=== PATIENT | male | born 1940 | race American Indian/Alaskan Native ===

== ENCOUNTER 2017-09-03 10:49 | Emergency (ER) | payer MEDICARE ==
[2017-09-03] MEDS ORDERED: ASPIRIN PO ONE (11:45)
[2017-09-03 11:46] VITALS: BP 153/71
[2017-09-03 12:18] LABS: Basophils % (Auto) 0.8 % (0.0-1.8); Eosinophils # (Auto) 0.4 K/mm3 (0.0-0.4); Eosinophils % (Auto) 9.4 % (0.0-4.3); Hematocrit 36.1 % (35.5-45.6); Hemoglobin 11.3 gm/dl (11.8-15.2); Lymphocytes # (Auto) 1.4 K/mm3 (1.2-5.4); Lymphocytes % (Auto) 32.6 % (13.4-35.0); Mean Corpuscular HGB Conc 31 % (32-34); Mean Corpuscular Volume 80 fl (84-94); Monocytes # (Auto) 0.6 K/mm3 (0.0-0.8); Monocytes % (Auto) 13.3 % (0.0-7.3); Platelet Count 225 K/mm3 (140-440); Red Blood Count 4.54 M/mm3 (3.65-5.03); Red Cell Distribution Width 17.7 % (13.2-15.2)
[2017-09-03 12:19] LABS: Mean Corpuscular Hemoglobin 25 pg (28-32)
[2017-09-03 12:29] LABS: BUN/Creatinine Ratio 14; Blood Urea Nitrogen 14 mg/dL (9-20); Calcium 8.9 mg/dL (8.4-10.2); Hemolysis Index 21
--- NOTE | 2017-09-03 13:16 | XRay Report ---
CHEST XRAY, 2 VIEWS: History: Shortness of breath. Findings: There is mild diffuse interstitial coarsening. The lungs are hyperexpanded but clear. No infiltrate, pleural fluid or pneumothorax is detected. The cardiac silhouette and pulmonary vasculature are within normal limits for technique. The bony thorax is unremarkable. IMPRESSION: Changes consistent with COPD. No acute cardiopulmonary process.
[2017-09-03] MEDS ORDERED: ASPIRIN ONE (22:10)
--- NOTE | 2017-09-03 23:03 | Emergency Department Report ---
ED Shortness of Breath HPI - General Chief Complaint: Dyspnea/Respdistress Stated Complaint: SOB/CHEST TIGHTNESS Time Seen by Provider: 09/03/17 22:53 Source: EMS Mode of arrival: Ambulatory Limitations: No Limitations - History of Present Illness Initial Comments: Patient is 77-year-old male history of COPD, hypertension and coronary artery disease, patient presented to the ER with shortness of breath for the last 3 weeks associated with shortness of breath and cough productive with greenish sputum. Patient denied any fever, nausea vomiting or diarrhea. He stated that he ran out of his inhaler too. MD Complaint: shortness of breath, cough -: week(s) Consistency: intermittent Known History Of: COPD Associated Symptoms: cough, sputum production - Related Data Home Medications Medication Instructions Recorded Confirmed Last Taken ALBUTEROL Inhaler [ProAir HFA 2 puff IH QID PRN 02/18/16 04/04/16 1 Day Ago Inhaler] ~04/03/16 2 Aspirin [Aspirin BABY CHEW TAB] 81 mg PO QDAY 02/18/16 04/04/16 1 Day Ago ~04/03/16 81 AtorvaSTATin [Lipitor] 40 mg PO DAILY 02/18/16 04/04/16 1 Day Ago ~04/03/16 40 Clopidogrel Bisulfate [Plavix] 75 mg PO DAILY 02/18/16 04/04/16 1 Day Ago ~04/03/16 75 Dorzolamide 2% (Nf) [Trusopt (Nf)] 1 drops OU BID 02/18/16 04/04/16 1 Day Ago ~04/03/16 1 Fluticasone/Salmeterol(Nf) [Advair 12 gm IH DAILY 02/18/16 04/04/16 1 Day Ago HFA 115-21 mcg] ~04/03/16 12 Latanoprost 0.005% [Xalatan 0.005%] 1 drop OU QPM 02/18/16 04/04/16 1 Day Ago ~04/03/16 1 Lisinopril [Zestril TAB] 5 mg PO QDAY 02/18/16 04/04/16 1 Day Ago ~04/03/16 5 Meclizine [Antivert] 25 mg PO TID PRN 02/18/16 04/04/16 1 Day Ago ~04/03/16 25 Metoprolol [Lopressor TAB] 25 mg PO BID 02/18/16 04/04/16 1 Day Ago ~04/03/16 25 Nitroglycerin [Nitrostat] 0.4 mg SL Q5M PRN 02/18/16 04/04/16 1 Day Ago ~04/03/16 0.4 Previous Rx's Medication Instructions Recorded Last Taken Type Docusate Sodium [Colace] 100 mg PO BID #60 capsule 02/22/16 1 Day Ago Rx ~04/03/16 100 Ferrous Sulfate [Feosol 325 MG tab] 325 mg PO BID #60 tablet 02/22/16 1 Day Ago Rx ~04/03/16 325 Allergies Allergy/AdvReac Type Severity Reaction Status Date / Time No Known Allergies Allergy Unverified 02/18/16 09:53 ED Review of Systems ROS: Stated complaint: SOB/CHEST TIGHTNESS Other details as noted in HPI Comment: All other systems reviewed and negative Constitutional: denies: chills, fever ENT: congestion Respiratory: cough, shortness of breath, SOB with exertion, wheezing Cardiovascular: chest pain. denies: palpitations, dyspnea on exertion Gastrointestinal: denies: abdominal pain, nausea, vomiting, diarrhea, constipation, hematemesis, melena, hematochezia Genitourinary: denies: urgency, frequency Neurological: denies: headache, weakness, numbness, paresthesias, confusion, abnormal gait, vertigo ED Past Medical Hx - Past Medical History Hx Hypertension: Yes Hx Heart Attack/AMI: Yes Hx Arthritis: Yes Hx Asthma: Yes (controlled) Additional medical history: GI bleed - Social History Smoking Status: Former Smoker Substance Use Type: None - Medications Home Medications: Home Medications Medication Instructions Recorded Confirmed Last Taken Type ALBUTEROL Inhaler [ProAir HFA 2 puff IH QID PRN 02/18/16 04/04/16 1 Day Ago History Inhaler] ~04/03/16 2 Aspirin [Aspirin BABY CHEW TAB] 81 mg PO QDAY 02/18/16 04/04/16 1 Day Ago History ~04/03/16 81 AtorvaSTATin [Lipitor] 40 mg PO DAILY 02/18/16 04/04/16 1 Day Ago History ~04/03/16 40 Clopidogrel Bisulfate [Plavix] 75 mg PO DAILY 02/18/16 04/04/16 1 Day Ago History ~04/03/16 75 Dorzolamide 2% (Nf) [Trusopt (Nf)] 1 drops OU BID 02/18/16 04/04/16 1 Day Ago History ~04/03/16 1 Fluticasone/Salmeterol(Nf) [Advair 12 gm IH DAILY 02/18/16 04/04/16 1 Day Ago History HFA 115-21 mcg] ~04/03/16 12 Latanoprost 0.005% [Xalatan 0.005%] 1 drop OU QPM 02/18/16 04/04/16 1 Day Ago History ~04/03/16 1 Lisinopril [Zestril TAB] 5 mg PO QDAY 02/18/16 04/04/16 1 Day Ago History ~04/03/16 5 Meclizine [Antivert] 25 mg PO TID PRN 02/18/16 04/04/16 1 Day Ago History ~04/03/16 25 Metoprolol [Lopressor TAB] 25 mg PO BID 02/18/16 04/04/16 1 Day Ago History ~04/03/16 25 Nitroglycerin [Nitrostat] 0.4 mg SL Q5M PRN 02/18/16 04/04/16 1 Day Ago History ~04/03/16 0.4 Docusate Sodium [Colace] 100 mg PO BID #60 capsule 02/22/16 04/04/16 1 Day Ago Rx ~04/03/16 100 Ferrous Sulfate [Feosol 325 MG tab] 325 mg PO BID #60 tablet 02/22/16 04/04/16 1 Day Ago Rx ~04/03/16 325 ED Physical Exam - General Limitations: No Limitations General appearance: alert, in no apparent distress - Head Head exam: Present: atraumatic, normocephalic, normal inspection - Eye Eye exam: Present: normal appearance, PERRL - ENT ENT exam: Present: normal exam, normal orophraynx, mucous membranes moist - Neck Neck exam: Present: normal inspection, full ROM. Absent: tenderness, meningismus, lymphadenopathy, thyromegaly - Respiratory Respiratory exam: Present: normal lung sounds bilaterally, wheezes. Absent: respiratory distress, rales, rhonchi, stridor, chest wall tenderness, accessory muscle use, decreased breath sounds, prolonged expiratory - Cardiovascular Cardiovascular Exam: Present: regular rate, normal rhythm, normal heart sounds - GI/Abdominal GI/Abdominal exam: Present: soft, normal bowel sounds. Absent: distended, tenderness, guarding, rebound, rigid, organomegaly, mass, bruit, pulsatile mass , hernia - Extremities Exam Extremities exam: Present: normal inspection, full ROM, normal capillary refill - Back Exam Back exam: Present: normal inspection, full ROM. Absent: tenderness, CVA tenderness (R), CVA tenderness (L), muscle spasm, paraspinal tenderness - Neurological Exam Neurological exam: Present: alert, oriented X3, CN II-XII intact, normal gait - Skin Skin exam: Present: warm, intact, normal color. Absent: cyanosis, diaphoretic ED Course Vital Signs 09/03/17 09/03/17 09/03/17 11:43 22:10 22:15 Temperature 98.9 F 98.1 F Pulse Rate 64 66 66 Respiratory 16 15 Rate Blood Pressure 153/71 O2 Sat by Pulse 100 Oximetry ED Medical Decision Making - Lab Data Result diagrams: 09/03/17 11:55 09/03/17 11:55 - EKG Data -: EKG Interpreted by Al EKG shows normal: sinus rhythm Rate: bradycardia - EKG Data Interpretation: no acute changes - Radiology Data Radiology results: report reviewed Referring Physician: EVA SUAREZ Patient Name: JUAN F CARDENAS Date of : 1940 Sex: Male Report Date: 2017-09-03 Report Status: Finalized Findings [address] [address] XRay Report Signed Patient: JUAN F CARDENAS MR#: [id number] : 1940 Acct:[id number] Age/Sex: 77 / M ADM Date: 09/03/17 Loc: ED Attending Dr: Ordering Physician: EVA SUAREZ MD Date of Service: 09/03/17 Procedure(s): XR chest routine 2V Accession Number(s): [id number] cc: EVA SUAREZ MD Fluoro Time In Minutes: CHEST XRAY, 2 VIEWS: History: Shortness of breath. Findings: There is mild diffuse interstitial coarsening. The lungs are hyperexpanded but clear. No infiltrate, pleural fluid or pneumothorax is detected. The cardiac silhouette and pulmonary vasculature are within normal limits for technique. The bony thorax is unremarkable. IMPRESSION: Changes consistent with COPD. No acute cardiopulmonary process. Transcribed By: TTR Dictated By: ELMER LAWSON JR, MD Electronically Authenticated By: ELMER LAWSON JR, MD Signed Date/Time: 09/03/17 1259 DD/ 1258 TD/TT: 09/03/17 1259 Critical care attestation.: If time is entered above; I have spent that time in minutes in the direct care of this critically ill patient, excluding procedure time. ED Disposition Clinical Impression: COPD exacerbation, Bronchitis Disposition: - TO HOME OR SELFCARE Is pt being admited?: No Condition: Stable Instructions: Chronic Obstructive Pulmonary Disease (ED), Chronic Bronchitis ( ED) Referrals: ALBERTO SANABRIA [Other] - 3-5 Days
== END 2017-09-03 23:38 | disposition home or self-care (01) ==
LOC: ED 10:49
DX: J45.901 Unspecified asthma with (acute) exacerbation (principal); I10 Essential (primary) hypertension; I50.9 Heart failure, unspecified
CPT/HCPCS: 36415; 71046; 80048; 84484; 85025; 87400; 93005; 93010

== ENCOUNTER 2019-04-07 02:45 | Observation (INO) | payer MEDICARE ==
--- NOTE | 2019-04-07 03:28 | Emergency Department Report ---
ED General Adult HPI - General Chief complaint: Nausea/Vomiting/Diarrhea Stated complaint: GENERAL ILLNESS, CHILLS Time Seen by Provider: 04/07/19 03:28 Source: EMS Mode of arrival: Ambulatory Limitations: No Limitations - History of Present Illness Initial comments: 78-year-old male with a history of coronary disease with 4 stents placement presents with a complaint of substernal chest tightness. Persisted began at 1 AM. Patient states that he also had nausea and vomited 2 times. Patient states he have abdominal pain. Patient states this chest pain feels similar to his prior IA and this he took a nitroglycerin except alleviate some of this pain. He states he also had some diaphoresis associated with it. Patient denies any fever. - Related Data Home Medications Medication Instructions Recorded Confirmed Last Taken AtorvaSTATin [Lipitor] 40 mg PO DAILY 02/18/16 11/16/17 11/15/17 Fluticasone/Salmeterol(Nf) [Advair 12 gm IH DAILY 02/18/16 11/16/17 11/15/17 HFA 115-21 mcg] Latanoprost 0.005% 1 drop OU QPM 02/18/16 11/16/17 11/15/17 Lisinopril [Zestril TAB] 5 mg PO QDAY 02/18/16 11/16/17 11/15/17 Metoprolol [Lopressor TAB] 25 mg PO BID 02/18/16 11/16/17 11/15/17 Nitroglycerin [Nitrostat] 0.4 mg SL Q5M PRN 02/18/16 11/16/17 11/16/17 ISOSORBIDE MONOnitrate [Imdur ER] 60 mg PO DAILY 11/16/17 11/16/17 11/15/17 Prasugrel [Effient] 10 mg PO QDAY 11/16/17 11/16/17 11/15/17 Previous Rx's Medication Instructions Recorded Last Taken Type ALBUTEROL Inhaler (OR & NICU) 2 puff IH QID PRN #1 inhalation 09/03/17 11/15/17 Rx [ProAir HFA Inhaler] Albuterol Sulfate [Ventolin HFA] 2 puff IH Q4H PRN #1 pump 11/19/17 Unknown Rx Aspirin EC [Halfprin EC] 81 mg PO QDAY tablet 11/19/17 Unknown Rx Famotidine [Pepcid] 20 mg PO BID #60 tablet 11/19/17 Unknown Rx Allergies Allergy/AdvReac Type Severity Reaction Status Date / Time No Known Allergies Allergy Unverified 02/18/16 09:53 ED Review of Systems ROS: Stated complaint: GENERAL ILLNESS, CHILLS Other details as noted in HPI Constitutional: chills Eyes: denies: eye pain, eye discharge, vision change ENT: denies: ear pain, throat pain Respiratory: denies: cough, shortness of breath, wheezing Cardiovascular: chest pain. denies: palpitations Endocrine: no symptoms reported Gastrointestinal: nausea, vomiting Genitourinary: denies: urgency, dysuria Musculoskeletal: denies: back pain, joint swelling, arthralgia Skin: denies: rash, lesions Neurological: denies: headache, weakness, paresthesias Psychiatric: denies: anxiety, depression Hematological/Lymphatic: denies: easy bleeding, easy bruising ED Past Medical Hx - Past Medical History Hx Hypertension: Yes Hx Heart Attack/AMI: Yes Hx Congestive Heart Failure: Yes Hx Diabetes: Yes Hx Arthritis: Yes Hx Asthma: Yes (controlled) Additional medical history: GI bleed, 4 coronary stents - Surgical History Hx Coronary Stent: Yes - Social History Smoking Status: Unknown if ever smoked - Medications Home Medications: Home Medications Medication Instructions Recorded Confirmed Last Taken Type AtorvaSTATin [Lipitor] 40 mg PO DAILY 02/18/16 11/16/17 11/15/17 History Fluticasone/Salmeterol(Nf) [Advair 12 gm IH DAILY 02/18/16 11/16/17 11/15/17 History HFA 115-21 mcg] Latanoprost 0.005% 1 drop OU QPM 02/18/16 11/16/17 11/15/17 History Lisinopril [Zestril TAB] 5 mg PO QDAY 02/18/16 11/16/17 11/15/17 History Metoprolol [Lopressor TAB] 25 mg PO BID 02/18/16 11/16/17 11/15/17 History Nitroglycerin [Nitrostat] 0.4 mg SL Q5M PRN 02/18/16 11/16/17 11/16/17 History ALBUTEROL Inhaler (OR & NICU) 2 puff IH QID PRN #1 inhalation 09/03/17 11/16/17 11/15/17 Rx [ProAir HFA Inhaler] ISOSORBIDE MONOnitrate [Imdur ER] 60 mg PO DAILY 11/16/17 11/16/17 11/15/17 History Prasugrel [Effient] 10 mg PO QDAY 11/16/17 11/16/17 11/15/17 History Albuterol Sulfate [Ventolin HFA] 2 puff IH Q4H PRN #1 pump 11/19/17 Unknown Rx Aspirin EC [Halfprin EC] 81 mg PO QDAY tablet 11/19/17 Unknown Rx Famotidine [Pepcid] 20 mg PO BID #60 tablet 11/19/17 Unknown Rx ED Physical Exam - General Limitations: No Limitations General appearance: alert, other (mildly uncomfortable; awake) - Head Head exam: Present: atraumatic, normocephalic - Eye Eye exam: Present: normal appearance - ENT ENT exam: Present: mucous membranes dry - Neck Neck exam: Present: normal inspection - Respiratory Respiratory exam: Present: normal lung sounds bilaterally. Absent: respiratory distress - Cardiovascular Cardiovascular Exam: Present: regular rate, normal rhythm. Absent: systolic murmur, diastolic murmur, rubs, gallop - GI/Abdominal GI/Abdominal exam: Present: soft, normal bowel sounds - Rectal Rectal exam: Present: deferred - Extremities Exam Extremities exam: Present: normal inspection - Back Exam Back exam: Present: normal inspection - Neurological Exam Neurological exam: Present: alert, oriented X3 - Psychiatric Psychiatric exam: Present: normal affect, normal mood - Skin Skin exam: Present: warm, dry, intact, normal color. Absent: rash ED Course Vital Signs 04/07/19 03:06 Temperature 98.8 F Pulse Rate 110 H Respiratory 16 Rate Blood Pressure 145/88 O2 Sat by Pulse 95 Oximetry ED Medical Decision Making - Lab Data Result diagrams: 04/07/19 04:35 04/07/19 04:35 - EKG Data EKG shows normal: sinus rhythm Rate: tachycardia - EKG Data Interpretation: no acute changes - Medical Decision Making With patient History of CAD patient to be admitted to the hospitalist service for continued management and treatment. - Differential Diagnosis STEMI; NSTEMI; Arryhtmia; Dehydration; Critical care attestation.: If time is entered above; I have spent that time in minutes in the direct care of this critically ill patient, excluding procedure time. ED Disposition Clinical Impression: Chest pain CAD (coronary artery disease) Qualifiers: Coronary Disease-Associated Artery/Lesion type: [place] artery [place] vs. transplanted heart: [place] heart Associated angina: without angina Qualified Code(s): I25.10 - Atherosclerotic heart disease of [place] coronary artery without angina pectoris Disposition: OP ADMIT IP TO THIS HOSP Is pt being admited?: Yes Does the pt Need Aspirin: No Condition: Stable Instructions: Chest Pain (ED) Time of Disposition: 07:19 Print Language: M[place]ENEGR[place]
--- NOTE | 2019-04-07 03:58 | XRay Report ---
CHEST 1 VIEW 3:35 AM INDICATION / CLINICAL INFORMATION: Chest pain. Nausea, vomiting and chills for the last 2 days. COMPARISON: 11/16/2017. FINDINGS: SUPPORT DEVICES: None. HEART / MEDIASTINUM: There is mild cardiomegaly with a left ventricular configuration. The aorta is n ormal in caliber. LUNGS / PLEURA: No significant pulmonary or pleural abnormality. No pneumothorax. ADDITIONAL FINDINGS: No significant additional findings. IMPRESSION: No acute abnormality or significant change. Signer Name: Roberto Odonnell MD Signed: 04/07/2019 3:54 AM Workstation Name: [id number]
[2019-04-07 04:55] LABS: Hematocrit 40.7 % (35.5-45.6); Hemoglobin 13.8 gm/dl (11.8-15.2); Mean Corpuscular HGB Conc 34 % (32-34); Mean Corpuscular Volume 96 fl (84-94); Platelet Count 135 K/mm3 (140-440); Red Blood Count 4.23 M/mm3 (3.65-5.03); Red Cell Distribution Width 13.4 % (13.2-15.2)
[2019-04-07 05:21] LABS: Alanine Aminotransferase 10 units/L (7-56); Albumin 3.7 g/dL (3.9-5); BUN/Creatinine Ratio 15; Blood Urea Nitrogen 19 mg/dL (9-20); Calcium 9.3 mg/dL (8.4-10.2); Hemolysis Index 9
[2019-04-07] MEDS ORDERED: NITROSTAT SL PRN ×2 (05:59→12:16)
[2019-04-07] MEDS ORDERED: SODIUM CHLORIDE FLUSH SYRINGE 10 ML IV PRN ×2 (05:59→06:02)
[2019-04-07] MEDS ORDERED: ZOFRAN IV PRN (06:02)
[2019-04-07] MEDS ORDERED: MORPHINE IV PRN (06:02)
[2019-04-07] MEDS ORDERED: TYLENOL PO PRN (06:02)
[2019-04-07] MEDS ORDERED: DILAUDID IV PRN (06:02)
[2019-04-07] MEDS ORDERED: PROAIR IH PRN ×2 (06:05→12:16)
[2019-04-07] MEDS ORDERED: PROVENTIL IH PRN ×2 (06:14→12:31)
[2019-04-07] MEDS ORDERED: K-DUR PO ONE (06:18)
[2019-04-07] MEDS ORDERED: D50W (25GM) Syringe IV PRN (06:19)
--- NOTE | 2019-04-07 06:28 | History and Physical Report ---
<KHANH RUIZ - Last Filed: 04/07/19 06:49> History of Present Illness Date of examination: 04/07/19 Date of admission: 04/07/2019 Chief complaint: Chest Pain History of present illness: 78-year-old -[place] male with history of CAD status post PCI 4 (most recent 11/13/17), [place] 2, HTN, HLD, DM, GI bleed, diverticulitis, asthma, and questionable history of PE who presents to [facility] ED with complaints of chest pain. Patient states that around 1 am this morning he got up to go to the bathroom upon return from the bathroom he started experiencing chills followed by nausea and emesis 2. After the second episode of emesis he started experiencing chest pain and became diaphoretic. He describes his pain as nonradiating substernal chest pain which is sharp in nature and rates it 8/10. Patient states that he took sublingual nitroglycerin 1 which relieved his pain for a short period. When the pain returned he decided to come into the ED for further evaluation and treatment. Patient states that he is had [place] x2 and the pain feels similar to the times he was having a heart attack, so he decided to come in to the ED for further evaluation and treatment. Denies: SOB, Fever, diarrhea, headache, hemoptysis, cough, or recent sick contacts A review of medical records shows that on 11/19/17 pulmonary wrote a note concern and questionable pulmonary bolus: CT angiogram initally read as PE. Then our in-house radiologist reviewed scan and he stated that he would not have read this as a positive CT Angio. VQ scan report [which was also skewed by his obstructive lung disease] was accurate. Considering the GI bleed history as wel as the AVM's and diverticulosis the risk of anticoagulation outweigh's the benefits and was recommend against anticoagulation by office technologist. Past History Past Medical History: arthritis, diabetes, hypertension, hyperlipidemia, other (Asthma, GI bleed, ??PE ) Past Surgical History: Other (stent x4 (most recent 11/13/17)) Social history: lives with family Family history: no significant family history Medications and Allergies Allergies Allergy/AdvReac Type Severity Reaction Status Date / Time No Known Allergies Allergy Unverified 02/18/16 09:53 Home Medications Medication Instructions Recorded Confirmed Last Taken Type AtorvaSTATin [Lipitor] 40 mg PO DAILY 02/18/16 11/16/17 11/15/17 History Fluticasone/Salmeterol(Nf) [Advair 12 gm IH DAILY 02/18/16 11/16/17 11/15/17 History HFA 115-21 mcg] Latanoprost 0.005% 1 drop OU QPM 02/18/16 11/16/17 11/15/17 History Lisinopril [Zestril TAB] 5 mg PO QDAY 02/18/16 11/16/17 11/15/17 History Metoprolol [Lopressor TAB] 25 mg PO BID 02/18/16 11/16/17 11/15/17 History Nitroglycerin [Nitrostat] 0.4 mg SL Q5M PRN 02/18/16 11/16/17 11/16/17 History ALBUTEROL Inhaler (OR & NICU) 2 puff IH QID PRN #1 inhalation 09/03/17 11/16/17 11/15/17 Rx [ProAir HFA Inhaler] ISOSORBIDE MONOnitrate [Imdur ER] 60 mg PO DAILY 11/16/17 11/16/17 11/15/17 History Prasugrel [Effient] 10 mg PO QDAY 11/16/17 11/16/17 11/15/17 History Albuterol Sulfate [Ventolin HFA] 2 puff IH Q4H PRN #1 pump 11/19/17 Unknown Rx Aspirin EC [Halfprin EC] 81 mg PO QDAY tablet 11/19/17 Unknown Rx Famotidine [Pepcid] 20 mg PO BID #60 tablet 11/19/17 Unknown Rx Active Meds: Active Medications Acetaminophen (Tylenol) 650 mg PO Q4H PRN PRN Reason: Pain MILD(1-3)/Fever >100.5/TO Albuterol (Proventil) 2.5 mg IH Q4HRT PRN PRN Reason: Shortness Of Breath Aspirin (Halfprin Ec) 81 mg PO QDAY ROSIO Atorvastatin Calcium (Lipitor) 40 mg PO DAILY ROSIO Dextrose (D50w (25gm) Syringe) 50 ml IV PRN PRN PRN Reason: Hypoglycemia Docusate Sodium (Colace) 100 mg PO BID ROSIO Enoxaparin Sodium (Lovenox) 40 mg SUB-Q QDAY@2200 ROSIO Famotidine (Pepcid) 20 mg PO BID ROSIO Hydromorphone HCl (Dilaudid) 0.5 mg IV Q3H PRN PRN Reason: Pain , Severe (7-10) Insulin Human Regular (Humulin R) 0 units SUB-Q Q6HR ROSIO; Protocol Morphine Sulfate (Morphine) 2 mg IV Q4H PRN PRN Reason: Pain, Moderate (4-6) Nitroglycerin (Nitrostat) 0.4 mg SL Q5M PRN PRN Reason: Chest Pain Ondansetron HCl (Zofran) 4 mg IV Q6HR PRN PRN Reason: Nausea And Vomiting Potassium Chloride (K-Dur) 40 meq PO ONCE ONE Stop: 04/07/19 06:19 Sodium Chloride (Sodium Chloride Flush Syringe 10 Ml) 10 ml IV PRN PRN PRN Reason: LINE FLUSH Sodium Chloride (Sodium Chloride Flush Syringe 10 Ml) 10 ml IV BID ROSIO Review of Systems All systems: negative Constitutional: chills Cardiovascular: chest pain (nonradiating substernal), other (diaphoresis) Gastrointestinal: nausea, vomiting (x2) Exam - Physical Exam Narrative exam: Physical exam General appearance: Present: No acute distress, alert and oriented, older adult male - EENT Eyes: Present: PERRL, EOM intact ENT: hearing intact, poor dentition, missing teeth - Neck Neck: Present: supple, normal ROM - Respiratory Respiratory effort: Non-labored Respiratory: bilateral: CTA with diminished bases bilaterally - Cardiovascular Heart rate: 110 (bpm) Rhythm:ST Heart Sounds: Present: S1 & S2. Absent: rub, click - Extremities Extremities: no ischemia, pulses intact, - Peripheral Assessment Peripheral Pulses: within normal limits - Abdominal General gastrointestinal: soft, non-tender, normal bowel sounds - Integumentary Integumentary: Present: warm, dry - Musculoskeletal Musculoskeletal: generalized weakness, able to move all extremities -Neurological Neurological: CN II-XII grossly intact - Psychiatric Psychiatric: cooperative - Constitutional Vitals: Temp Pulse Resp BP Pulse Ox 98.8 F 110 H 16 145/88 95 04/07/19 03:06 04/07/19 03:06 04/07/19 03:06 04/07/19 03:06 04/07/19 03:06 Results - Labs CBC & Chem 7: 08/19/19 04:35 04/07/19 04:35 Labs: Laboratory Last Values WBC 5.8 K/mm3 (4.5-11.0) 04/07/19 04:35 RBC 4.23 M/mm3 (3.65-5.03) 04/07/19 04:35 Hgb 13.8 gm/dl (11.8-15.2) 04/07/19 04:35 Hct 40.7 % (35.5-45.6) 04/07/19 04:35 MCV 96 fl (84-94) H 04/07/19 04:35 MCH 33 pg (28-32) H 04/07/19 04:35 MCHC 34 % (32-34) 04/07/19 04:35 RDW 13.4 % (13.2-15.2) 04/07/19 04:35 Plt Count 135 K/mm3 (140-440) L 04/07/19 04:35 Sodium 144 mmol/L (137-145) 04/07/19 04:35 Potassium 3.5 mmol/L (3.6-5.0) L 04/07/19 04:35 Chloride 105.4 mmol/L (98-107) 04/07/19 04:35 Carbon Dioxide 24 mmol/L (22-30) 04/07/19 04:35 18 mmol/L 04/07/19 04:35 BUN 19 mg/dL (9-20) 04/07/19 04:35 1.3 mg/dL (0.8-1.5) 04/07/19 04:35 Estimated GFR > 60 ml/min 04/07/19 04:35 15 % 04/07/19 04:35 Glucose 120 mg/dL (75-100) H 04/07/19 04:35 Calcium 9.3 mg/dL (8.4-10.2) 04/07/19 04:35 1.00 mg/dL (0.1-1.2) 04/07/19 04:35 AST 13 units/L (5-40) 04/07/19 04:35 ALT 10 units/L (7-56) 04/07/19 04:35 67 units/L (35-129) 04/07/19 04:35 125 units/L (55-170) 04/07/19 04:35 < 0.010 ng/mL (0.00-0.029) 04/07/19 04:35 6.9 g/dL (6.3-8.2) 04/07/19 04:35 3.7 g/dL (3.9-5) L 04/07/19 04:35 1.2 % 04/07/19 04:35 29 units/L (13-60) 04/07/19 04:35 - Imaging and Cardiology Chest x-ray: report reviewed (Impression: Significant pulmonary abnormalities), image reviewed Assessment and Plan Assessment and plan: 78-year-old -[place] male with history of CAD status post PCI 4 (most recent 11/13/17), [place] 2, HTN, HLD, DM, GI bleed, diverticulitis, asthma, and questionable history of PE who presents to [facility] ED with complaints of chest pain. Acute Chest Pain R/O ACS -Initiate chest pain protocol -Continuous telemetry monitoring -Continue supportive care -Pain mgmt -Echo and Lexiscan pending -Troponin neg x1, continue to trend -Continue ASA and Statin -Hx of [place] x2 -Cardiology consult Hypertension -Continue to monitor BP -Resume home antihypertensive medication to optimize BP- -IV hydralazine when necessary DM 2 -POC BG monitoring -SSI coverage -HbgA1C pending Hx HLD -On statin -Lipid panel pending Hypokalemia -mild -Repleted -Continue to monitor electrolytes -Replete prn History of GI bleed History of diverticulitis History CAD -S/P stent x 4 (most recent 11/13/17) DVT PPX -SCD's -Hold systemic anticoagulation due to history of GI bleed and low platelet count Advance Directives: No VTE prophylaxis?: Chemical Plan of care discussed with patient/family: Yes <MARNI HORTON - Last Filed: 04/07/19 06:56> Medications and Allergies Active Meds: Active Medications Acetaminophen (Tylenol) 650 mg PO Q4H PRN PRN Reason: Pain MILD(1-3)/Fever >100.5/TO Albuterol (Proventil) 2.5 mg IH Q4HRT PRN PRN Reason: Shortness Of Breath Aspirin (Halfprin Ec) 81 mg PO QDAY ROSIO Atorvastatin Calcium (Lipitor) 40 mg PO DAILY [facility] Dextrose (D50w (25gm) Syringe) 50 ml IV PRN PRN PRN Reason: Hypoglycemia Docusate Sodium (Colace) 100 mg PO BID [facility] Famotidine (Pepcid) 20 mg PO BID [facility] Hydralazine HCl (Apresoline) 10 mg IV Q4HR PRN PRN Reason: Blood Pressure Hydromorphone HCl (Dilaudid) 0.5 mg IV Q3H PRN PRN Reason: Pain , Severe (7-10) Insulin Human Regular (Humulin R) 0 units SUB-Q Q6HR [facility]; Protocol Morphine Sulfate (Morphine) 2 mg IV Q4H PRN PRN Reason: Pain, Moderate (4-6) Nitroglycerin (Nitrostat) 0.4 mg SL Q5M PRN PRN Reason: Chest Pain Ondansetron HCl (Zofran) 4 mg IV Q6HR PRN PRN Reason: Nausea And Vomiting Sodium Chloride (Sodium Chloride Flush Syringe 10 Ml) 10 ml IV PRN PRN PRN Reason: LINE FLUSH Sodium Chloride (Sodium Chloride Flush Syringe 10 Ml) 10 ml IV BID [facility] Exam - Constitutional Vitals: Temp Pulse Resp BP Pulse Ox 98.8 F 110 H 16 145/88 95 04/07/19 03:06 04/07/19 03:06 04/07/19 03:06 04/07/19 03:06 04/07/19 03:06 Results - Labs CBC & Chem 7: 04/07/19 04:35 04/07/19 04:35 Labs: Laboratory Last Values WBC 5.8 K/mm3 (4.5-11.0) 04/07/19 04:35 RBC 4.23 M/mm3 (3.65-5.03) 04/07/19 04:35 Hgb 13.8 gm/dl (11.8-15.2) 04/07/19 04:35 Hct 40.7 % (35.5-45.6) 04/07/19 04:35 MCV 96 fl (84-94) H 04/07/19 04:35 MCH 33 pg (28-32) H 04/07/19 04:35 MCHC 34 % (32-34) 04/07/19 04:35 RDW 13.4 % (13.2-15.2) 04/07/19 04:35 Plt Count 135 K/mm3 (140-440) L 04/07/19 04:35 Sodium 144 mmol/L (137-145) 04/07/19 04:35 Potassium 3.5 mmol/L (3.6-5.0) L 04/07/19 04:35 Chloride 105.4 mmol/L (98-107) 04/07/19 04:35 Carbon Dioxide 24 mmol/L (22-30) 04/07/19 04:35 18 mmol/L 04/07/19 04:35 BUN 19 mg/dL (9-20) 04/07/19 04:35 1.3 mg/dL (0.8-1.5) 04/07/19 04:35 Estimated GFR > 60 ml/min 04/07/19 04:35 15 % 04/07/19 04:35 Glucose 120 mg/dL (75-100) H 04/07/19 04:35 6.2 % (4-6) H 04/07/19 04:35 Calcium 9.3 mg/dL (8.4-10.2) 04/07/19 04:35 1.00 mg/dL (0.1-1.2) 04/07/19 04:35 AST 13 units/L (5-40) 04/07/19 04:35 ALT 10 units/L (7-56) 04/07/19 04:35 67 units/L (35-129) 04/07/19 04:35 125 units/L (55-170) 04/07/19 04:35 < 0.010 ng/mL (0.00-0.029) 04/07/19 04:35 6.9 g/dL (6.3-8.2) 04/07/19 04:35 3.7 g/dL (3.9-5) L 04/07/19 04:35 1.2 % 04/07/19 04:35 29 units/L (13-60) 04/07/19 04:35 Assessment and Plan Assessment and plan: I personally discussed the patient with the [employer], Khanh Ruiz. I agree with the above assessment and plan.
[2019-04-07] MEDS ORDERED: APRESOLINE IV PRN (06:40)
[2019-04-07 07:11] LABS: Chol/HDL Ratio 3.88 %
[2019-04-07] MEDS ORDERED: LEXISCAN IV ONE ×3 (08:09→11:41)
[2019-04-07] MEDS ORDERED: COLACE PO SCH (10:00)
[2019-04-07] MEDS ORDERED: SODIUM CHLORIDE FLUSH SYRINGE 10 ML IV SCH (10:00)
[2019-04-07] MEDS ORDERED: PEPCID PO SCH (10:00)
[2019-04-07] MEDS ORDERED: HALFPRIN EC PO SCH (10:00)
[2019-04-07] MEDS ORDERED: HumuLIN R SUB-Q SCH (12:00)
[2019-04-07] MEDS ORDERED: ANTIVERT PO PRN (12:16)
--- NOTE | 2019-04-07 12:18 | Discharge Summary ---
Providers - Providers Date of Admission: 04/07/19 06:02 Attending physician: DINH SIMPSON MD 04/07/19 05:59 Consult to Cardiology [CONS] Routine Consulting Provider: YESENIA MICHEL Reason For Exam: cp hx stent x4 04/07/19 06:19 Consult to Dietitian/Nutrition [CONS] Routine Physician Instructions: Reason For Exam: Reason for Consult: Diet education Primary care physician: DASHAWN CORONADO Hospitalization Condition: Stable Hospital course: 78-year-old -[place] male with history of CAD status post PCI 4 (most recent 11/13/17), [place] 2, HTN, HLD, DM, GI bleed, diverticulitis, asthma, and questionable history of PE who presents to [facility] ED with complaints of chest pain. Acute Chest Pain R/O ACS -Initiate chest pain protocol -Continuous telemetry monitoring -Continue supportive care -Pain mgmt -Echo and Lexiscan pending -Troponin neg x1, continue to trend -Continue ASA and Statin -Hx of [place] x2 -Cardiology consult Hypertension -Continue to monitor BP -Resume home antihypertensive medication to optimize BP- -IV hydralazine when necessary DM 2 -POC BG monitoring -SSI coverage -HbgA1C pending Hx HLD -On statin -Lipid panel pending Hypokalemia -mild -Repleted -Continue to monitor electrolytes -Replete prn History of GI bleed History of diverticulitis History CAD -S/P stent x 4 (most recent 11/13/17) DVT PPX -SCD's -Hold systemic anticoagulation due to history of GI bleed and low platelet count Disposition: DC-01 TO HOME OR SELFCARE Time spent for discharge: 33 mins Core Measure Documentation - Palliative Care Palliative Care/ Comfort Measures: Not Applicable - Core Measures Any of the following diagnoses?: none Exam - Constitutional Vitals: Temp Pulse Resp BP Pulse Ox 98.2 F 97 H 16 118/73 96 04/07/19 09:11 04/07/19 09:11 04/07/19 09:11 04/07/19 09:11 04/07/19 09:11 General appearance: Present: no acute distress, well-nourished - EENT Eyes: Present: PERRL ENT: hearing intact, clear oral mucosa - Neck Neck: Present: supple, normal ROM - Respiratory Respiratory effort: normal Respiratory: bilateral: CTA - Cardiovascular Heart Sounds: Present: S1 & S2. Absent: rub, click - Extremities Extremities: pulses symmetrical, No edema Peripheral Pulses: within normal limits - Abdominal General gastrointestinal: Present: soft, non-tender, non-distended, normal bowel sounds Male genitourinary: Present: normal - Integumentary Integumentary: Present: clear, warm, dry - Musculoskeletal Musculoskeletal: gait normal, strength equal bilaterally - Psychiatric Psychiatric: appropriate mood/affect, intact judgment & insight - Neurologic Neurologic: CNII-XII intact, moves all extremities Plan Follow up with: DASHAWN CORONADO MD [Primary Care Provider] - 3-5 Days
[2019-04-07] MEDS ORDERED: LOPRESSOR PO SCH (14:00)
--- NOTE | 2019-04-07 15:21 | Consultation ---
History of Present Illness Consult date: 04/07/19 Consult reason: chest pain, known to you, shortness of breath History of present illness: 78-year-old -[place] male with history of CAD status post PCI 4 (most recent 11/13/17), [place] 2, HTN, HLD, DM, GI bleed, diverticulitis, asthma, and q uestionable history of PE who presents to [facility] ED with complaints of chest pain. Patient states that around 1 am this morning he got up to go to the bathroom upon return from the bathroom he started experiencing chills followed by nausea and emesis 2. After the second episode of emesis he started experiencing chest pain and became diaphoretic. He describes his pain as nonradiating substernal c hest pain which is sharp in nature and rates it 8/10. Patient states that he took sublingual nitroglycerin 1 which relieved his pain for a short period. When the pain returned he decided to come into the ED for further evaluation and treatment. Patient states that he is had [place] x2 and the pain feels similar to the times he was having a heart attack, so he decided to come in to the ED for further evaluation and treatment. Past History Past Medical History: arthritis, diabetes, hypertension, hyperlipidemia, other (Asthma, GI bleed, ??PE ) Past Surgical History: Other (stent x4 (most recent 11/13/17)) Social history: lives with family Family history: no significant family history Medications and Allergies Allergies Allergy/AdvReac Type Severity Reaction Status Date / Time No Known Allergies Allergy Unverified 02/18/16 09:53 Home Medications Medication Instructions Recorded Confirmed Last Taken Type AtorvaSTATin [Lipitor] 40 mg PO DAILY 02/18/16 04/07/19 11/15/17 History Fluticasone/Salmeterol(Nf) [Advair 12 gm IH DAILY 02/18/16 04/07/19 11/15/17 History HFA 115-21 mcg] Latanoprost 0.005% 1 drop OU QPM 02/18/16 04/07/19 11/15/17 History Lisinopril [Zestril TAB] 20 mg PO QDAY 02/18/16 04/07/19 11/15/17 History Metoprolol [Lopressor TAB] 25 mg PO TID 02/18/16 04/07/1918 History Nitroglycerin [Nitrostat] 0.4 mg SL Q5M PRN 02/18/16 04/07/19 11/16/17 History ALBUTEROL Inhaler (OR & NICU) 2 puff IH QID PRN #1 inhalation 09/03/17 04/07/19 11/15/17 Rx [ProAir HFA Inhaler] ISOSORBIDE MONOnitrate [Imdur ER] 60 mg PO DAILY 11/16/17 04/07/19 11/15/17 History Prasugrel [Effient] 10 mg PO QDAY 11/16/17 04/07/19 11/15/17 History Albuterol Sulfate [Ventolin HFA] 2 puff IH Q4H PRN #1 pump 11/19/17 04/07/19 Unknown Rx Aspirin EC [Halfprin EC] 81 mg PO QDAY tablet 11/19/17 04/07/19 Unknown Rx Famotidine [Pepcid] 20 mg PO BID tablet 04/07/19 Unknown Rx Ferrous Sulfate 325 mg PO BID 04/07/19 04/07/19 Unknown History Furosemide [Lasix] 20 mg PO QDAY 04/07/19 04/07/19 Unknown History Meclizine [Antivert] 25 mg PO Q8H PRN 04/07/19 04/07/19 Unknown History Prolensa 1 drop INTRAOCULA QDAY 04/07/19 04/07/19 Unknown History Ranolazine ER [Ranexa ER] 1 tab PO BID 04/07/19 04/07/19 Unknown History predniSONE 2 tab PO BID 04/07/19 04/07/19 Unknown History Active Meds: Active Medications Albuterol (Proventil) 2.5 mg IH Q4HRT PRN PRN Reason: Shortness Of Breath Arformoterol Tartrate (Brovana Nebu) 15 mcg IH Q12HRT ROSIO Budesonide (Pulmicort) 0.5 mg IH Q12HRT ROSIO Ferrous Sulfate (Feosol) 325 mg PO BID ROSIO Furosemide (Lasix) 20 mg PO QDAY [facility] Insulin Human Regular (Humulin R) 0 units SUB-Q Q6HR [facility]; Protocol Isosorbide Mononitrate (Imdur) 60 mg PO DAILY [facility] Latanoprost (Latanoprost 0.005%) 1 drops OU QPM [facility] Lisinopril (Zestril) 20 mg PO QDAY [facility] Meclizine HCl (Antivert) 25 mg PO Q8H PRN PRN Reason: Dizziness Metoprolol Tartrate (Lopressor) 25 mg PO TID [facility] Miscellaneous Medication (Prednisone) 2 tab PO BID [facility] Miscellaneous Medication (Prolensa) 1 drop INTRAOCULA QDAY [facility] Nitroglycerin (Nitrostat) 0.4 mg SL Q5M PRN PRN Reason: Chest Pain Prasugrel (Effient) 10 mg PO QDAY [facility] Ranolazine (Ranexa Er) 500 mg PO BID [facility] Review of Systems Cardiovascular: chest pain, dyspnea on exertion Gastrointestinal: nausea, vomiting Physical Examination Vital Signs Temp Pulse Resp BP Pulse Ox 98.8 F 110 H 16 145/88 95 04/07/19 03:06 04/07/19 03:06 04/07/19 03:06 04/07/19 03:06 04/07/19 03:06 Results 04/07/19 04:35 04/07/19 04:35 Cardiac Enzymes 04/07/19 Range/Units 04:35 AST 13 (5-40) units/L Lipids 04/07/19 Range/Units 04:35 Triglycerides 82 (2-149) mg/dL Cholesterol 206 H (50-199) mg/dL HDL Cholesterol 53 (40-59) mg/dL Cholesterol/HDL Ratio 3.88 % CBC 04/07/19 Range/Units 04:35 WBC 5.8 (4.5-11.0) K/mm3 RBC 4.23 (3.65-5.03) M/mm3 Hgb 13.8 (11.8-15.2) gm/dl Hct 40.7 (35.5-45.6) % Plt Count 135 L (140-440) K/mm3 Comprehensive Metabolic Panel 04/07/19 Range/Units 04:35 Sodium 144 (137-145) mmol/L Potassium 3.5 L (3.6-5.0) mmol/L Chloride 105.4 (98-107) mmol/L Carbon Dioxide 24 (22-30) mmol/L BUN 19 (9-20) mg/dL Creatinine 1.3 (0.8-1.5) mg/dL Glucose 120 H (75-100) mg/dL Calcium 9.3 (8.4-10.2) mg/dL AST 13 (5-40) units/L ALT 10 (7-56) units/L Alkaline Phosphatase 67 (35-129) units/L Total Protein 6.9 (6.3-8.2) g/dL Albumin 3.7 L (3.9-5) g/dL EKG interpretations - Telemetry EKG Rhythm: Sinus Rhythm (No acute changes.) Assessment and Plan R/O ACS -Initiate chest pain protocol -Continuous telemetry monitoring -Troponin neg x1, continue to trend -Continue ASA and Statin -Hx of [place] x2 - Hypertension -Continue to monitor BP -Resume home antihypertensive medication to optimize BP- DM 2 -POC BG monitoring -SSI coverage -HbgA1C pending Hx HLD -On statin -Lipid panel pending Hypokalemia -mild -Repleted -Continue to monitor electrolytes -Replete prn History of GI bleed History of diverticulitis History CAD -S/P stent x 4 (most recent 11/13/17) MPI: Negative for ischemia. Inferolateral scar is noted. Echo: EF 35-40% Patient may be Dc. Office follow up in a week. .
[2019-04-07 15:56] VITALS: BP 120/59
[2019-04-07] MEDS ORDERED: LATANOPROST 0.005% OU SCH (18:00)
[2019-04-07] MEDS ORDERED: BROVANA NEBU IH SCH (20:00)
[2019-04-07] MEDS ORDERED: PULMICORT IH SCH (20:00)
[2019-04-07] MEDS ORDERED: PREDNISONE PO SCH ×2 (22:00)
[2019-04-07] MEDS ORDERED: LOVENOX SUB-Q SCH (22:00)
[2019-04-07] MEDS ORDERED: FEOSOL PO SCH (22:00)
[2019-04-07] MEDS ORDERED: NON-FORMULARY (Ferrous Sulfate 325 MG) PO SCH (22:00)
[2019-04-07] MEDS ORDERED: RANEXA ER PO SCH (22:00)
[2019-04-08] MEDS ORDERED: ZESTRIL PO SCH (10:00)
[2019-04-08] MEDS ORDERED: PROLENSA INTRAOCULA SCH ×2 (10:00)
[2019-04-08] MEDS ORDERED: IMDUR PO SCH (10:00)
[2019-04-08] MEDS ORDERED: EFFIENT PO SCH (10:00)
[2019-04-08] MEDS ORDERED: FLUTICASONE IH SCH (10:00)
[2019-04-08] MEDS ORDERED: LASIX PO SCH (10:00)
[2019-04-08] MEDS ORDERED: SALMETEROL IH SCH (10:00)
== END 2019-04-07 17:45 | disposition home or self-care (01) ==
LOC: SUATTDRO 02:45 → ED 02:45 → INTOOBSV 06:02 → 4A 06:02 → UNDODISIN 09:00
PROVIDERS: ADMIT Internal Medicine; ATTEND Internal Medicine
DX: R07.89 Other chest pain (principal); I10 Essential (primary) hypertension; E11.9 Type 2 diabetes mellitus without complications; E87.5 Hyperkalemia; I25.10 Atherosclerotic heart disease of native coronary artery without angina pectoris; J45.909 Unspecified asthma, uncomplicated; M19.90 Unspecified osteoarthritis, unspecified site; Z95.1 Presence of aortocoronary bypass graft; Z79.82 Long term (current) use of aspirin; Z79.4 Long term (current) use of insulin
CPT/HCPCS: 36415; 71045; 78452; 80053; 80061; 82550; 83036; 83690; 84484; 85027; 93005; 93010; 93017; 93306; 99284; A9502; G0378; J2785; 96374

== ENCOUNTER 2019-05-30 16:24 | Observation (INO) | payer MEDICARE ==
--- NOTE | 2019-05-30 16:58 | Event Note ---
ED Screening Note Date of service: 05/30/19 Time: 16:54 ED Screening Note: 78-year-old -[place]ong[place] male patient presents with complaints of intermittent dizziness and headaches for the past 5 days. He states headaches are abnormal for him, however denies any current headache. He has history of [place] 2, but denies history of stroke/DVT/PE. Dizziness occurs while standing and feels like lightheadedness he states the dizziness lasts about 20 minutes. She also admits to chest pain today that resolved with nitroglycerin. This initial assessment/diagnostic orders/clinical plan/treatment(s) is/are subject to change based on patients health status, clinical progression and re-assessment by fellow clinical providers in the ED. Further treatment and workup at subsequent clinical providers discretion. Patient/guardian urged not to elope from the ED as their condition may be serious if not clinically assessed and managed. Initial orders include: CT head CXR Labs Orthostats
[2019-05-30 17:36] LABS: Basophils % (Auto) 0.7 % (0.0-1.8); Eosinophils # (Auto) 0.5 K/mm3 (0.0-0.4); Eosinophils % (Auto) 8.7 % (0.0-4.3); Hematocrit 41.1 % (35.5-45.6); Hemoglobin 13.6 gm/dl (11.8-15.2); Lymphocytes # (Auto) 1.7 K/mm3 (1.2-5.4); Lymphocytes % (Auto) 30.4 % (13.4-35.0); Mean Corpuscular HGB Conc 33 % (32-34); Mean Corpuscular Volume 96 fl (84-94); Monocytes # (Auto) 0.6 K/mm3 (0.0-0.8); Platelet Count 185 K/mm3 (140-440); Red Blood Count 4.26 M/mm3 (3.65-5.03); Red Cell Distribution Width 13.3 % (13.2-15.2)
--- NOTE | 2019-05-30 17:47 | Cat Scan Report ---
CT head without contrast INDICATION : dizziness, abnormal headaches. TECHNIQUE: Axial imaging performed from the skull apex through the skull base without the use of con trast. All CT scans at this location are performed using CT dose reduction for ALARA by means of aut omated exposure control. COMPARISON: None FINDINGS: Parenchyma: No acute intracranial hemorrhage or parenchymal abnormality. Ventricles: Ventricles are normal in size and appear symmetric. Soft tissues: Soft tissues including the orbits appear normal. Bones: No acute osseous abnormality. Sinuses: Sinuses and mastoid air cells are clear. IMPRESSION: No acute abnormality. Signer Name: Luciano Blank MD Signed: 05/30/2019 5:43 PM Workstation Name: [id number]
[2019-05-30 17:57] LABS: BUN/Creatinine Ratio 14; Blood Urea Nitrogen 18 mg/dL (9-20); Calcium 8.9 mg/dL (8.4-10.2); Hemolysis Index 12
[2019-05-30 18:24] LABS: Bilirubin,Urine NEG (Negative); Blood,Urine NEG (Negative); Color,Urine Yellow (Yellow); Protein,Urine <15 mg/dL mg/dL (Negative); Urobilinogen,Urine < 2.0 mg/dL (<2.0)
--- NOTE | 2019-05-30 18:29 | XRay Report ---
CHEST 2 VIEWS INDICATION: dizziness, chest pain. COMPARISON: 04/07/2019 FINDINGS: Support devices: None. Heart: Within normal limits. Lungs: No acute air space or interstitial disease. Pleura: No significant pleural effusion. No pneumothorax. Additional findings: None. IMPRESSION: 1. No acute findings. Signer Name: Anthony Aranda MD Signed: 05/30/2019 6:24 PM Workstation Name: [id number]
[2019-05-30 18:32] LABS: WBC,Urine < 1.0 /HPF (0.0-6.0)
--- NOTE | 2019-05-30 19:28 | Emergency Department Report ---
<BROOKLYN BANG III - Last Filed: 05/30/19 20:40> ED Syncope HPI - General Chief Complaint: Dizziness Stated Complaint: DIZZY/WEAKNESS Time Seen by Provider: 05/30/19 16:58 - Related Data Allergies/Adverse Reactions: Allergies No Known Allergies Allergy (Unverified 02/18/16 09:53) Home Medications: Ambulatory Orders AtorvaSTATin [Lipitor] 40 mg PO DAILY 02/18/16 Lisinopril [Zestril TAB] 20 mg PO DAILY 02/18/16 Metoprolol [Lopressor TAB] 25 mg PO BID 02/18/16 Nitroglycerin [Nitrostat] 0.4 mg SL Q5M PRN 02/18/16 Furosemide [Lasix] 20 mg PO DAILY 04/07/19 Ranolazine ER [Ranexa ER] 1 tab PO BID 04/07/19 Aspirin EC [Halfprin EC] 81 mg PO DAILY 05/30/19 Brimonidine Tartrate [Alphagan P 0.1%] 1 drop OU TID 05/30/19 ISOSORBIDE MONOnitrate [Imdur ER] 30 mg PO DAILY 05/30/19 Meloxicam [Mobic] 15 mg PO DAILY 05/30/19 Netarsudil Mesylate [Rhopressa] 1 drop OU TID 05/30/19 ED Past Medical Hx - Medications Home Medications: Home Medications Medication Instructions Recorded Confirmed Last Taken Type AtorvaSTATin [Lipitor] 40 mg PO DAILY 02/18/16 05/30/19 11/15/17 History Lisinopril [Zestril TAB] 20 mg PO DAILY 02/18/16 05/30/19 11/15/17 History Metoprolol [Lopressor TAB] 25 mg PO BID 02/18/16 05/30/19 11/15/17 History Nitroglycerin [Nitrostat] 0.4 mg SL Q5M PRN 02/18/16 05/30/19 11/16/17 History Furosemide [Lasix] 20 mg PO DAILY 04/07/19 05/30/19 Unknown History Ranolazine ER [Ranexa ER] 1 tab PO BID 04/07/19 05/30/19 Unknown History Aspirin EC [Halfprin EC] 81 mg PO DAILY 05/30/19 05/30/19 Unknown History Brimonidine Tartrate [Alphagan P 1 drop OU TID 05/30/19 05/30/19 Unknown History 0.1%] ISOSORBIDE MONOnitrate [Imdur ER] 30 mg PO DAILY 05/30/19 05/30/19 Unknown History Meloxicam [Mobic] 15 mg PO DAILY 05/30/19 05/30/19 Unknown History Netarsudil Mesylate [Rhopressa] 1 drop OU TID 05/30/19 05/30/19 Unknown History ED Physical Exam - General General appearance: alert, in no apparent distress - Head Head exam: Present: atraumatic, normocephalic - Eye Eye exam: Present: normal appearance - ENT ENT exam: Present: mucous membranes moist - Neck Neck exam: Present: normal inspection - Respiratory Respiratory exam: Present: normal lung sounds bilaterally. Absent: respiratory distress - Cardiovascular Cardiovascular Exam: Present: regular rate, normal rhythm. Absent: systolic murmur, diastolic murmur, rubs, gallop - GI/Abdominal GI/Abdominal exam: Present: soft, normal bowel sounds - Rectal Rectal exam: Present: deferred - Extremities Exam Extremities exam: Present: normal inspection - Back Exam Back exam: Present: normal inspection - Neurological Exam Neurological exam: Present: alert, oriented X3 - Psychiatric Psychiatric exam: Present: normal affect, normal mood - Skin Skin exam: Present: warm, dry, intact, normal color. Absent: rash ED Course - Reevaluation(s) Reevaluation #1: I discussed all results with patient. I discussed plan of care patient. Patient agrees with plan of care and admission. Patient will be admitted to the hospital service. I examined the patient. 05/30/19 20:31 ED Medical Decision Making - Lab Data Result diagrams: 05/30/19 17:24 05/30/19 17:24 ED Disposition Clinical Impression: Dizziness, SOB (shortness of breath) Syncope Qualifiers: Syncope type: unspecified Qualified Code(s): R55 - Syncope and collapse Chest pain Qualifiers: Chest pain type: unspecified Qualified Code(s): R07.9 - Chest pain, unspecified Disposition: OP ADMIT IP TO THIS HOSP Condition: Stable <SUSANNA CABRAL - Last Filed: 05/31/19 00:44> ED Syncope HPI - History of Present Illness Initial Comments: patient is a 78-year-old male who presents the emergency room with complaints of an episode of syncope that occurred just prior to arrival. pt states he has been feeling lightheaded and dizzy for the last 3-4 days. Today when he stood up he was feeling lightheaded and dizzy and felt tightness in his chest and then had an episode of syncope. States it was not witnessed and he is not sure how long he was on the floor. He states he still has some mild chest pain and shortness of breath. he took 2 nitroglycerin today prior to EMS arrival and his chest pain improved. Denies any nausea, vomiting, diarrhea, palpitations. Has a past medical history of OR with stent placement, hypertension, asthma, hyperlipidemia. PMHx of CHF with EF of 35-40%. states that his general operations agent is at [facility]. ED Review of Systems ROS: Stated complaint: DIZZY/WEAKNESS Other details as noted in HPI Comment: All other systems reviewed and negative ED Past Medical Hx - Past Medical History Hx Hypertension: Yes Hx Heart Attack/AMI: Yes Hx Congestive Heart Failure: Yes Hx Diabetes: Yes Hx Arthritis: Yes Hx Asthma: Yes (controlled) Additional medical history: GI bleed, 4 coronary stents - Surgical History Hx Coronary Stent: Yes - Social History Smoking Status: Former Smoker Substance Use Type: None ED Physical Exam - General Limitations: No Limitations General appearance: alert, in no apparent distress - Head Head exam: Present: atraumatic, normocephalic - Eye Eye exam: Present: normal appearance - ENT ENT exam: Present: mucous membranes moist - Respiratory Respiratory exam: Present: normal lung sounds bilaterally. Absent: respiratory distress, wheezes, rales, rhonchi, stridor, chest wall tenderness, accessory muscle use, decreased breath sounds, prolonged expiratory - Cardiovascular Cardiovascular Exam: Present: regular rate, normal rhythm, normal heart sounds. Absent: systolic murmur, diastolic murmur, rubs, gallop - Extremities Exam Extremities exam: Absent: pedal edema - Neurological Exam Neurological exam: Present: alert, oriented X3, CN II-XII intact, other (5/5 strength in the BUE/BLE, equal run lead strength, sensation intact) - Psychiatric Psychiatric exam: Present: normal affect, normal mood - Skin Skin exam: Present: warm, dry, intact ED Course Vital Signs 05/30/19 05/30/19 05/30/19 16:44 17:40 19:35 Temperature 98.4 F 98.5 F Pulse Rate 79 83 76 Respiratory 18 18 16 Rate Blood Pressure 135/86 Blood Pressure 133/85 [Left] O2 Sat by Pulse 99 97 99 Oximetry 05/30/19 21:00 Temperature Pulse Rate 79 Respiratory 14 Rate Blood Pressure Blood Pressure 158/75 [Left] O2 Sat by Pulse 98 Oximetry - Consultations Consultation #1: 05/30/19 20:[address] Epps, will accept and resume care of pt and will be admitted to the hospital ED Medical Decision Making - Lab Data Result diagrams: 05/30/19 17:24 05/30/19 17:24 Lab Results 05/30/19 05/30/19 05/30/19 Range/Units 16:59 17:24 17:24 WBC 5.6 (4.5-11.0) K/mm3 RBC 4.26 (3.65-5.03) M/mm3 Hgb 13.6 (11.8-15.2) gm/dl Hct 41.1 (35.5-45.6) % MCV 96 H (84-94) fl MCH 32 (28-32) pg MCHC 33 (32-34) % RDW 13.3 (13.2-15.2) % Plt Count 185 (140-440) K/mm3 Lymph % (Auto) 30.4 (13.4-35.0) % [place] % (Auto) 11.0 H (0.0-7.3) % Eos % (Auto) 8.7 H (0.0-4.3) % Baso % (Auto) 0.7 (0.0-1.8) % Lymph # 1.7 (1.2-5.4) K/mm3 [place] # 0.6 (0.0-0.8) K/mm3 Eos # 0.5 H (0.0-0.4) K/mm3 Baso # 0.0 (0.0-0.1) K/mm3 Seg Neutrophils % 49.2 (40.0-70.0) % Seg Neutrophils # 2.7 (1.8-7.7) K/mm3 Sodium 141 (137-145) mmol/L Potassium 4.0 (3.6-5.0) mmol/L Chloride 99.5 (98-107) mmol/L Carbon Dioxide 25 (22-30) mmol/L Anion Gap 21 mmol/L BUN 18 (9-20) mg/dL Creatinine 1.3 (0.8-1.5) mg/dL Estimated GFR > 60 ml/min BUN/Creatinine Ratio 14 % Glucose 87 (75-100) mg/dL Calcium 8.9 (8.4-10.2) mg/dL Phosphorus (2.5-4.5) mg/dL Magnesium (1.7-2.3) mg/dL Troponin T < 0.010 (0.00-0.029) ng/mL NT-Pro-B Natriuret Pep (0-900) pg/mL Urine Color Yellow (Yellow) Urine Turbidity Clear (Clear) Urine pH 5.0 (5.0-7.0) Ur Specific [place] 1.010 (1.003-1.030) Urine Protein <15 mg/dl (Negative) mg/dL Urine Glucose (UA) Neg (Negative) mg/dL Urine Ketones Neg (Negative) mg/dL Urine Blood Neg (Negative) Urine Nitrite Neg (Negative) Urine Bilirubin Neg (Negative) Urine Urobilinogen < 2.0 (<2.0) mg/dL Ur Leukocyte Esterase Neg (Negative) Urine WBC (Auto) < 1.0 (0.0-6.0) /HPF Urine RBC (Auto) 3.0 (0.0-6.0) /HPF 05/30/19 Range/Units 19:03 WBC (4.5-11.0) K/mm3 RBC (3.65-5.03) M/mm3 Hgb (11.8-15.2) gm/dl Hct (35.5-45.6) % MCV (84-94) fl MCH (28-32) pg MCHC (32-34) % RDW (13.2-15.2) % Plt Count (140-440) K/mm3 Lymph % (Auto) (13.4-35.0) % [place] % (Auto) (0.0-7.3) % Eos % (Auto) (0.0-4.3) % Baso % (Auto) (0.0-1.8) % Lymph # (1.2-5.4) K/mm3 [place] # (0.0-0.8) K/mm3 Eos # (0.0-0.4) K/mm3 Baso # (0.0-0.1) K/mm3 Seg Neutrophils % (40.0-70.0) % Seg Neutrophils # (1.8-7.7) K/mm3 Sodium (137-145) mmol/L Potassium (3.6-5.0) mmol/L Chloride (98-107) mmol/L Carbon Dioxide (22-30) mmol/L Anion Gap mmol/L BUN (9-20) mg/dL Creatinine (0.8-1.5) mg/dL Estimated GFR ml/min BUN/Creatinine Ratio % Glucose (75-100) mg/dL Calcium (8.4-10.2) mg/dL Phosphorus 4.00 (2.5-4.5) mg/dL Magnesium 1.70 (1.7-2.3) mg/dL Troponin T < 0.010 (0.00-0.029) ng/mL NT-Pro-B Natriuret Pep 1989 H (0-900) pg/mL Urine Color (Yellow) Urine Turbidity (Clear) Urine pH (5.0-7.0) Ur Specific [place] (1.003-1.030) Urine Protein (Negative) mg/dL Urine Glucose (UA) (Negative) mg/dL Urine Ketones (Negative) mg/dL Urine Blood (Negative) Urine Nitrite (Negative) Urine Bilirubin (Negative) Urine Urobilinogen (<2.0) mg/dL Ur Leukocyte Esterase (Negative) Urine WBC (Auto) (0.0-6.0) /HPF Urine RBC (Auto) (0.0-6.0) /HPF - EKG Data EKG shows normal: sinus rhythm, ST-T waves Rate: normal - EKG Data 05/30/19 20:17 LAD multiple PVCs OR interval 218 LAE - Radiology Data Radiology results: report reviewed CTA CHEST WITH CONTRAST INDICATION / CLINICAL INFORMATION: SOB, CP, hypoxia, lightheaded. TECHNIQUE: Axial CT images were obtained through the chest after injection of 100 mL Omnipaque 350 IV contrast. 3 plane MIP and/or 3D reconstructions were produced. All CT scans at this location are performed using CT dose reduction for ALARA by means of automated exposure control. COMPARISON: CT dated 11/17/17 FINDINGS: PULMONARY ARTERIES: No pulmonary emboli. THORACIC AORTA: No significant abnormality. HEART: No significant abnormality. CORONARY ARTERIES: Moderate coronary artery calcification. MEDIASTINUM / TEODORA: No significant abnormality. PLEURA: No pleural effusion. No pneumothorax. LUNGS: No acute air space or interstitial disease. ADDITIONAL FINDINGS: None. UPPER ABDOMEN: No acute findings. SKELETAL STRUCTURES: No significant osseous abnormality. IMPRESSION: 1. No CT evidence for pulmonary embolism. 2. No acute pulmonary or pleural findings. Signer Name: Javi Yap MD Signed: 05/30/2019 8:00 PM Workstation Name: [id number] Transcribed By: DT Dictated By: Buck Yap MD Electronically Authenticated By: Buck Yap MD Signed Date/Time: 05/30/191999 DD/ 56 TD/TT: CHEST 2 VIEWS INDICATION: dizziness, chest pain. COMPARISON: 04/07/2019 FINDINGS: Support devices: None. Heart: Within normal limits. Lungs: No acute air space or interstitial disease. Pleura: No significant pleural effusion. No pneumothorax. Additional findings: None. IMPRESSION: 1. No acute findings. Signer Name: Anthony Aranda MD Signed: 05/30/2019 6:24 PM Workstation Name: [id number] Transcribed By: WG Dictated By: Anthony Aranda MD Electronically Authenticated By: Anthony Aranda MD Signed Date/Time: 05/30/[address] head without contrast INDICATION : dizziness, abnormal headaches. TECHNIQUE: Axial imaging performed from the skull apex through the skull base without the use of contrast. All CT scans at this location are performed using CT dose reduction for ALARA by means of automated exposure control. COMPARISON: None FINDINGS: Parenchyma: No acute intracranial hemorrhage or parenchymal abnormality. Ventricles: Ventricles are normal in size and appear symmetric. Soft tissues: Soft tissues including the orbits appear normal. Bones: No acute osseous abnormality. Sinuses: Sinuses and mastoid air cells are clear. IMPRESSION: No acute abnormality. Signer Name: Luciano Blank MD Signed: 05/30/2019 5:43 PM Workstation Name: [id number] Transcribed By: JW Dictated By: Luciano Blank MD Electronically Authenticated By: Luciano Blank MD Signed Date/Time: 05/30/19 174 DD/ 1742 TD/TT: - Medical Decision Making patient is a 78-year-old male who presents the emergency room with complaints of an episode of syncope that occurred just prior to arrival. pt states he has been feeling lightheaded and dizzy for the last 3-4 days. Today when he stood up he was feeling lightheaded and dizzy and felt tightness in his chest and then had an episode of syncope. States it was not witnessed and he is not sure how long he was on the floor. He states he still has some mild chest pain and shortness of breath. he took 2 nitroglycerin today prior to EMS arrival and his chest pain improved. Denies any nausea, vomiting, diarrhea, palpitations. Has a past medical history of OR with stent placement, hypertension, asthma, hyperlipidemia. PMHx of CHF with EF of 35-40%. states that his general operations agent is at [facility]. pt is on nasal cannula, when nasal cannula is removed, oxygen saturation drops to the 88%. labs with elevated BNP, otherwise normal. EKG with LAD, multiple PVCs, OR interval 218, LAE. CT head with no acute process, CTA chest with no acute process, CXR with no acute process. pt will be admitted to the hospital for further evaluation and management. spoke with Dr. Epps, will accept and resume care of pt and will be admitted to the hospital. - Differential Diagnosis ACS, PE, aortic aneurysm, arrhythmia, valve dysfunction, CHF exacerbation Critical care attestation.: If time is entered above; I have spent that time in minutes in the direct care of this critically ill patient, excluding procedure time. ED Disposition Is pt being admited?: Yes Does the pt Need Aspirin: No
--- NOTE | 2019-05-30 20:05 | Cat Scan Report ---
CTA CHEST WITH CONTRAST INDICATION / CLINICAL INFORMATION: SOB, CP, hypoxia, lightheaded. TECHNIQUE: Axial CT images were obtained through the chest after injection of 100 mL Omnipaque 350 IV contrast. 3 plane MIP and/or 3D reconstructions were produced. All CT scans at this location are performed usin g CT dose reduction for ALARA by means of automated exposure control. COMPARISON: CT dated 11/17/17 FINDINGS: PULMONARY ARTERIES: No pulmonary emboli. THORACIC AORTA: No significant abnormality. HEART: No significant abnormality. CORONARY ARTERIES: Moderate coronary artery calcification. MEDIASTINUM / TEODORA: No significant abnormality. PLEURA: No pleural effusion. No pneumothorax. LUNGS: No acute air space or interstitial disease. ADDITIONAL FINDINGS: None. UPPER ABDOMEN: No acute findings. SKELETAL STRUCTURES: No significant osseous abnormality. IMPRESSION: 1. No CT evidence for pulmonary embolism. 2. No acute pulmonary or pleural findings. Signer Name: Javi Yap MD Signed: 05/30/2019 8:00 PM Workstation Name: [id number]
[2019-05-30] MEDS ORDERED: TYLENOL PO PRN (21:40)
[2019-05-30] MEDS ORDERED: SODIUM CHLORIDE FLUSH SYRINGE 10 ML IV PRN (21:40)
[2019-05-30] MEDS ORDERED: MORPHINE IV PRN (21:40)
[2019-05-30] MEDS ORDERED: DILAUDID IV PRN (21:40)
[2019-05-30] MEDS ORDERED: D50W (25GM) Syringe IV PRN (21:40)
[2019-05-30] MEDS ORDERED: PROVENTIL IH PRN (21:40)
[2019-05-30] MEDS ORDERED: ZOFRAN IV PRN (21:40)
--- NOTE | 2019-05-30 21:40 | History and Physical Report ---
History of Present Illness Date of examination: 05/30/19 Date of admission: 05/30/19 20:22 Chief complaint: Near syncopal episode, chest pain History of present illness: 78-year-old -[place] male with history of CHF with EF 35-45%, CAD status post PCI 4 (most recent 11/13/17), NM 2, HTN, HLD, DM, GI bleed, diverticulitis, asthma, and questionable history of PE who presents to [facility] ED with complaints of chest pain and near syncopal episode. Patient complains of intermittent lightheadedness and dizziness for the past 3-4 days. Patient states that around 3pm this afternoon was sitting in his recliner, when he began to feel lightheaded and dizzy. He attempted to stand up but fell to the floor. He denies loss of consciousness. However, he complained of blurred vision. When he was finally able to stand up he went back to recliner chair to rest. He started experiencing 6/10 chest pain or pain with mild shortness of breath. He describes his pain as chest tightness. He took sublingual nitroglycerin x2 doses and called EMS. When EMS arrived to his house patient states that his chest pain had improved to 4/10 and his vision improved as well. Denies; n/v, diaphoresis, headache, head injury/trauma Past History Past Medical History: acute NM (x2), arthritis, CAD (S/P PCI 4 (most recent 11/13/17)), diabetes, heart failure (EF 30-35%), hypertension, hyperlipidemia, other (GI bleed, diverticulitis, asthma, questionable history of PE) Past Surgical History: Other (stent 4) Social history: Family history: no significant family history Medications and Allergies Allergies Allergy/AdvReac Type Severity Reaction Status Date / Time No Known Allergies Allergy Unverified 02/18/16 09:53 Home Medications Medication Instructions Recorded Confirmed Last Taken Type AtorvaSTATin [Lipitor] 40 mg PO DAILY 02/18/16 05/30/19 11/15/17 History Lisinopril [Zestril TAB] 20 mg PO DAILY 02/18/16 05/30/19 11/15/17 History Metoprolol [Lopressor TAB] 25 mg PO BID 02/18/16 05/30/19 11/15/17 History Nitroglycerin [Nitrostat] 0.4 mg SL Q5M PRN 02/18/16 05/30/19 11/16/17 History Furosemide [Lasix] 20 mg PO DAILY 04/07/19 05/30/19 Unknown History Ranolazine ER [Ranexa ER] 1 tab PO BID 04/07/19 05/30/19 Unknown History Aspirin EC [Halfprin EC] 81 mg PO DAILY 05/30/19 05/30/19 Unknown History Brimonidine Tartrate [Alphagan P 1 drop OU TID 05/30/19 05/30/19 Unknown History 0.1%] ISOSORBIDE MONOnitrate [Imdur ER] 30 mg PO DAILY 05/30/19 05/30/19 Unknown History Meloxicam [Mobic] 15 mg PO DAILY 05/30/19 05/30/19 Unknown History Netarsudil Mesylate [Rhopressa] 1 drop OU TID 05/30/19 05/30/19 Unknown History Review of Systems All systems: negative Eyes: bilateral: blurred vision Cardiovascular: chest pain, lightheadedness Neurological: syncope (Near syncopal episode) Exam - Physical Exam Narrative exam: General appearance: Present: No acute distress, alert and oriented, older adult male - EENT Eyes: Present: PERRL, EOM intact ENT: hearing intact, missing teeth - Neck Neck: Present: supple, normal ROM - Respiratory Respiratory effort: Non-labored Respiratory: bilateral: CTA with diminished bases bilaterally - Cardiovascular Heart rate:71 (bpm) Rhythm:SR Heart Sounds: Present: S1, S2. - Extremities Extremities: no ischemia, pulses intact - Peripheral Assessment Peripheral Pulses: within normal limits - Abdominal General gastrointestinal: soft, non-tender, normal bowel sounds - Integumentary Integumentary: Present: warm, dry - Musculoskeletal Musculoskeletal: generalized weakness, able to move all extremities -Neurological Neurological: CN II-XII grossly intact - Psychiatric Psychiatric: cooperative - Constitutional Vitals: Temp Pulse Resp BP Pulse Ox 98.5 F 76 16 133/85 99 05/30/19 19:35 05/30/19 19:35 05/30/19 19:35 05/30/19 19:35 05/30/19 19:35 Results - Labs CBC & Chem 7: 05/30/19 17:24 05/30/19 17:24 Labs: Laboratory Last Values WBC 5.6 K/mm3 (4.5-11.0) 05/30/19 17:24 RBC 4.26 M/mm3 (3.65-5.03) 05/30/19 17:24 Hgb 13.6 gm/dl (11.8-15.2) 05/30/19 17:24 Hct 41.1 % (35.5-45.6) 05/30/19 17:24 MCV 96 fl (84-94) H 05/30/19 17:24 MCH 32 pg (28-32) 05/30/19 17:24 MCHC 33 % (32-34) 05/30/19 17:24 RDW 13.3 % (13.2-15.2) 05/30/19 17:24 Plt Count 185 K/mm3 (140-440) 05/30/19 17:24 Lymph % (Auto) 30.4 % (13.4-35.0) 05/30/19 17:24 [place] % (Auto) 11.0 % (0.0-7.3) H 05/30/19 17:24 Eos % (Auto) 8.7 % (0.0-4.3) H 05/30/19 17:24 Baso % (Auto) 0.7 % (0.0-1.8) 05/30/19 17:24 Lymph # 1.7 K/mm3 (1.2-5.4) 05/30/19 17:24 [place] # 0.6 K/mm3 (0.0-0.8) 05/30/19 17:24 Eos # 0.5 K/mm3 (0.0-0.4) H 05/30/19 17:24 Baso # 0.0 K/mm3 (0.0-0.1) 05/30/19 17:24 Seg Neutrophils % 49.2 % (40.0-70.0) 05/30/19 17:24 Seg Neutrophils # 2.7 K/mm3 (1.8-7.7) 05/30/19 17:24 Sodium 141 mmol/L (137-145) 05/30/19 17:24 Potassium 4.0 mmol/L (3.6-5.0) 05/30/19 17:24 Chloride 99.5 mmol/L (98-107) 05/30/19 17:24 Carbon Dioxide 25 mmol/L (22-30) 05/30/19 17:24 Anion Gap 21 mmol/L 05/30/19 17:24 BUN 18 mg/dL (9-20) 05/30/19 17:24 Creatinine 1.3 mg/dL (0.8-1.5) 05/30/19 17:24 Estimated GFR > 60 ml/min 05/30/19 17:24 BUN/Creatinine Ratio 14 % 05/30/19 17:24 Glucose 87 mg/dL (75-100) 05/30/19 17:24 Calcium 8.9 mg/dL (8.4-10.2) 05/30/19 17:24 Phosphorus 4.00 mg/dL (2.5-4.5) 05/30/19 19:03 Magnesium 1.70 mg/dL (1.7-2.3) 05/30/19 19:03 Troponin T < 0.010 ng/mL (0.00-0.029) 05/30/19 19:03 NT-Pro-B Natriuret Pep 1989 pg/mL (0-900) H 05/30/19 19:03 Urine Color Yellow (Yellow) 05/30/19 16:59 Urine Turbidity Clear (Clear) 05/30/19 16:59 Urine pH 5.0 (5.0-7.0) 05/30/19 16:59 Ur Specific [place] 1.010 (1.003-1.030) 05/30/19 16:59 Urine Protein <15 mg/dl mg/dL (Negative) 05/30/19 16:59 Urine Glucose (UA) Neg mg/dL (Negative) 05/30/19 16:59 Urine Ketones Neg mg/dL (Negative) 05/30/19 16:59 Urine Blood Neg (Negative) 05/30/19 16:59 Urine Nitrite Neg (Negative) 05/30/19 16:59 Urine Bilirubin Neg (Negative) 05/30/19 16:59 Urine Urobilinogen < 2.0 mg/dL (<2.0) 05/30/19 16:59 Ur Leukocyte Esterase Neg (Negative) 05/30/19 16:59 Urine WBC (Auto) < 1.0 /HPF (0.0-6.0) 05/30/19 16:59 Urine RBC (Auto) 3.0 /HPF (0.0-6.0) 05/30/19 16:59 - Imaging and Cardiology Imaging and Cardiology: CT Angio Chest: FINDINGS: PULMONARY ARTERIES: No pulmonary emboli. THORACIC AORTA: No significant abnormality. HEART: No significant abnormality. CORONARY ARTERIES: Moderate coronary artery calcification. MEDIASTINUM / TEODORA: No significant abnormality. PLEURA: No pleural effusion. No pneumothorax. LUNGS: No acute air space or interstitial disease. ADDITIONAL FINDINGS: None. UPPER ABDOMEN: No acute findings. SKELETAL STRUCTURES: No significant osseous abnormality. IMPRESSION: 1. No CT evidence for pulmonary embolism. 2. No acute pulmonary or pleural findings. CT Head/Brain: FINDINGS: Parenchyma: No acute intracranial hemorrhage or parenchymal abnormality. Ventricles: Ventricles are normal in size and appear symmetric. Soft tissues: Soft tissues including the orbits appear normal. Bones: No acute osseous abnormality. Sinuses: Sinuses and mastoid air cells are clear. IMPRESSION: No acute abnormality. CXR: FINDINGS: Support devices: None. Heart: Within normal limits. Lungs: No acute air space or interstitial disease. Pleura: No significant pleural effusion. No pneumothorax. Additional findings: None. IMPRESSION: 1. No acute findings. Assessment and Plan Assessment and plan: 78-year-old -[place] male with history of CHF with EF 35-45%, CAD status post PCI 4 (most recent 11/13/17), NM 2, HTN, HLD, DM, GI bleed, diverticulitis, asthma, and questionable history of PE who presents to [facility] ED with complaints of chest pain and near syncopal episode. Will admit as OBS for further evaluation. Acute Exacerbation CHF -EF 35-40% sen on Echo 04/07/2019 -BNP elevated at 1989 -Troponin negative 2 -CXR did not show any acute findings -Continue po Lasix -Cardiology consulted Acute atypical Chest Pain -Initiate chest pain protocol -Continuous telemetry monitoring -Continue supportive care -Pain mgmt -Troponin neg x2 -Continue ASA and Statin -Hx of NM x2 -Cardiology consulted Near-syncopal episode -CT Head negative -Patient complains of dizziness and lightheadedness -Admits to almost passing out and falling to the ground -Denies loss of consciousness -Bilateral carotid Doppler pending -Cardiology consult Hypertension -Continue to monitor BP -Resume home antihypertensive medication to optimize BP DM 2 -POC BG monitoring -SSI coverage Hx HLD -On statin -Lipid panel pending History of GI bleed History of Diverticulitis History CAD -S/P stent x 4 (most recent 11/13/17) DVT PPX -SCD's
[2019-05-30] MEDS ORDERED: NITROSTAT SL PRN (21:46)
[2019-05-30] MEDS: RANEXA ER PO SCH (22:04)
[2019-05-30] MEDS: METOPROLOL PO SCH (22:04)
[2019-05-30] MEDS: SODIUM CHLORIDE FLUSH SYRINGE 10 ML IV SCH (22:05)
[2019-05-30] MEDS: HumaLOG SUB-Q SCH (23:42)
[2019-05-31] MEDS: HumaLOG SUB-Q SCH ×3 (06:17→17:53)
[2019-05-31 07:15] LABS: Basophils % (Auto) 0.8 % (0.0-1.8); Eosinophils # (Auto) 0.6 K/mm3 (0.0-0.4); Eosinophils % (Auto) 11.4 % (0.0-4.3); Hematocrit 41.1 % (35.5-45.6); Hemoglobin 13.9 gm/dl (11.8-15.2); Lymphocytes # (Auto) 1.8 K/mm3 (1.2-5.4); Lymphocytes % (Auto) 34.8 % (13.4-35.0); Mean Corpuscular HGB Conc 34 % (32-34); Mean Corpuscular Volume 96 fl (84-94); Monocytes # (Auto) 0.6 K/mm3 (0.0-0.8); Monocytes % (Auto) 12.2 % (0.0-7.3); Platelet Count 176 K/mm3 (140-440); Red Blood Count 4.29 M/mm3 (3.65-5.03); Red Cell Distribution Width 13.6 % (13.2-15.2)
[2019-05-31] MEDS: LASIX PO SCH (09:41)
[2019-05-31] MEDS: HALFPRIN EC PO SCH (09:41)
[2019-05-31] MEDS: RANEXA ER PO SCH ×2 (09:41→21:00)
[2019-05-31] MEDS: IMDUR PO SCH (09:42)
[2019-05-31] MEDS: MOBIC PO SCH (09:42)
[2019-05-31] MEDS: METOPROLOL PO SCH ×3 (09:42→20:51)
[2019-05-31] MEDS: SODIUM CHLORIDE FLUSH SYRINGE 10 ML IV SCH ×2 (09:43→21:00)
[2019-05-31] MEDS ORDERED: ZESTRIL PO SCH (10:00)
[2019-05-31] MEDS ORDERED: ENOXAPARIN SUB-Q SCH (10:00)
[2019-05-31] MEDS ORDERED: NON-FORMULARY (Meloxicam [Mobic] 15 MG) PO SCH (10:00)
--- NOTE | 2019-05-31 11:47 | Consultation ---
History of Present Illness Consult date: 05/31/19 Requesting physician: SUSANNA CABRAL Consult reason: chest pain, other (Presyncope) History of present illness: The patient is followed by Dr. Hendrix in our office. He has a history of coronary artery disease, status post NV 2, status post multiple PCI's. He had a negative stress MPI in March 2019 and an echocardiogram with an ejection fraction of 3540 percent about the same time. Yesterday evening, he claims that he suddenly became dizzy with presyncope and fell on the floor without any loss of consciousness. While on the floor, he developed a sharp precordial chest pain which was relieved subsequently with sublingual nitroglycerin. He claims that he has been experiencing exertional dyspnea for about 3 weeks. He has no orthopnea. He also admits to intermittent chest pain recently. Brain CT scan and chest CTA revealed no acute findings. Past History Past Medical History: acute NV (x2), arthritis, CAD (S/P PCI 4 (most recent 11/13/17)), heart failure (Chronic HFrEF), hypertension, hyperlipidemia, pulmonary embolism, other (GI bleed, diverticulitis, asthma) Past Surgical History: PTCA (Coronary stenting x4) Social history: , other (former smoker). denies: smoking, alcohol abuse Family history: no significant family history Medications and Allergies Allergies Allergy/AdvReac Type Severity Reaction Status Date / Time No Known Allergies Allergy Unverified 02/18/16 09:53 Home Medications Medication Instructions Recorded Confirmed Last Taken Type AtorvaSTATin [Lipitor] 40 mg PO DAILY 02/18/16 05/30/19 11/15/17 History Lisinopril [Zestril TAB] 20 mg PO DAILY 02/18/16 05/30/19 11/15/17 History Metoprolol [Lopressor TAB] 25 mg PO BID 02/18/16 05/30/19 11/15/17 History Nitroglycerin [Nitrostat] 0.4 mg SL Q5M PRN 02/18/16 05/30/19 11/16/17 History Furosemide [Lasix] 20 mg PO DAILY 04/07/19 05/30/19 Unknown History Ranolazine ER [Ranexa ER] 1 tab PO BID 04/07/19 05/30/19 Unknown History Aspirin EC [Halfprin EC] 81 mg PO DAILY 05/30/19 05/30/19 Unknown History Brimonidine Tartrate [Alphagan P 1 drop OU TID 05/30/19 05/30/19 Unknown History 0.1%] ISOSORBIDE MONOnitrate [Imdur ER] 30 mg PO DAILY 05/30/19 05/30/19 Unknown History Meloxicam [Mobic] 15 mg PO DAILY 05/30/19 05/30/19 Unknown History Netarsudil Mesylate [Rhopressa] 1 drop OU TID 05/30/19 05/30/19 Unknown History Active Meds: Active Medications Acetaminophen (Tylenol) 650 mg PO Q4H PRN PRN Reason: Pain MILD(1-3)/Fever >100.5/TO Albuterol (Proventil) 2.5 mg IH Q3HRT PRN PRN Reason: Shortness Of Breath Aspirin (Halfprin Ec) 81 mg PO DAILY [facility] Last Admin: 05/31/19 09:41 Dose: 81 mg Documented by: Atorvastatin Calcium (Lipitor) 40 mg PO DAILY [facility] Last Admin: 05/31/19 09:41 Dose: 40 mg Documented by: Dextrose (D50w (25gm) Syringe) 50 ml IV PRN PRN PRN Reason: Hypoglycemia Furosemide (Lasix) 20 mg PO DAILY [facility] Last Admin: 05/31/19 09:41 Dose: 20 mg Documented by: Hydromorphone HCl (Dilaudid) 0.5 mg IV Q3H PRN PRN Reason: Pain , Severe (7-10) Insulin Human Lispro (Humalog) 0 unit SUB-Q Q6HR [facility]; Protocol Last Admin: 05/31/19 06:17 Dose: Not Given Documented by: Isosorbide Mononitrate (Imdur) 30 mg PO DAILY [facility] Last Admin: 05/31/19 09:42 Dose: 30 mg Documented by: Lisinopril (Zestril) 20 mg PO DAILY [facility] Last Admin: 05/31/19 09:41 Dose: 20 mg Documented by: Meloxicam (Mobic) 15 mg PO QDAY [facility] Last Admin: 05/31/19 09:42 Dose: 15 mg Documented by: Metoprolol Tartrate (Lopressor) 25 mg PO BID [facility] Last Admin: 05/31/19 09:42 Dose: 25 mg Documented by: Morphine Sulfate (Morphine) 2 mg IV Q4H PRN PRN Reason: Pain, Moderate (4-6) Nitroglycerin (Nitrostat) 0.4 mg SL Q5M PRN PRN Reason: Chest Pain Ondansetron HCl (Zofran) 4 mg IV Q6H PRN PRN Reason: Nausea And Vomiting Ranolazine (Ranexa Er) 500 mg PO BID [facility] Last Admin: 05/31/19 09:41 Dose: 500 mg Documented by: Sodium Chloride (Sodium Chloride Flush Syringe 10 Ml) 10 ml IV BID [facility] Last Admin: 05/31/19 09:43 Dose: 10 ml Documented by: Sodium Chloride (Sodium Chloride Flush Syringe 10 Ml) 10 ml IV PRN PRN PRN Reason: LINE FLUSH Review of Systems Constitutional: no fever, no chills Ears, nose, mouth and throat: no ear pain, no ear discharge, no sore throat Cardiovascular: chest pain, lightheadedness, shortness of breath, no orthopnea, no palpitations Respiratory: dyspnea on exertion, no cough, no hemoptysis Gastrointestinal: no abdominal pain, no nausea, no vomiting, no diarrhea, no constipation Genitourinary Male: no dysuria, no urinary frequency Rectal: no pain, no bleeding Musculoskeletal: no neck stiffness, no neck pain, no myalgias Integumentary: no rash, no pruritis Neurological: no weakness, no parathesias, no headaches Endocrine: no cold intolerance, no heat intolerance Hematologic/Lymphatic: no easy bruising, no easy bleeding Allergic/Immunologic: no urticaria, no wheezing Physical Examination Vital Signs Last Vital Signs Temp 97.6 F 05/31/19 07:53 Pulse 68 05/31/19 10:00 Resp 16 05/31/19 10:00 BP 119/69 05/31/19 09:42 Pulse Ox 99 05/31/19 10:00 General appearance: no acute distress HEENT: Positive: EOMI, Normocephaly, Mucus Membranes Moist Neck: Positive: neck supple, trachea midline Cardiac: Positive: Reg Rate and Rhythm, S1/S2 Lungs: Positive: clear to auscultation Neuro: Positive: Grossly Intact Abdomen: Positive: Soft, Active Bowel Sounds. Negative: Tender Skin: Positive: Clear. Negative: Rash Musculoskeletal: Normal Range of Motion Extremities: Present: normal. Absent: edema Results 05/31/19 06:29 05/31/19 06:29 CBC 05/30/19 05/31/19 Range/Units 17:24 06:29 WBC 5.6 5.1 (4.5-11.0) K/mm3 RBC 4.26 4.29 (3.65-5.03) M/mm3 Hgb 13.6 13.9 (11.8-15.2) gm/dl Hct 41.1 41.1 (35.5-45.6) % Plt Count 185 176 (140-440) K/mm3 Lymph # 1.7 1.8 (1.2-5.4) K/mm3 [place] # 0.6 0.6 (0.0-0.8) K/mm3 Eos # 0.5 H 0.6 H (0.0-0.4) K/mm3 Baso # 0.0 0.0 (0.0-0.1) K/mm3 Comprehensive Metabolic Panel 05/30/19 05/31/19 Range/Units 17:24 06:29 Sodium 141 144 (137-145) mmol/L Potassium 4.0 4.6 (3.6-5.0) mmol/L Chloride 99.5 103.0 (98-107) mmol/L Carbon Dioxide 25 29 (22-30) mmol/L BUN 18 23 H (9-20) mg/dL Creatinine 1.3 1.4 (0.8-1.5) mg/dL Glucose 87 92 (75-100) mg/dL Calcium 8.9 9.0 (8.4-10.2) mg/dL - Imaging and Cardiology EKG: image reviewed EKG interpretations - Telemetry EKG Rhythm: Sinus Rhythm - EKG Sinus rhythms and dysrhythmias: sinus rhythm Ventricular dysrhythmias: ventricular premature com Assessment and Plan Obtained orthostatic parameters. I will add oral nitrates to his regimen. He will be observed overnight for recurrent chest pain and arrhythmias. Depending on his clinical course, he may require invasive ischemia evaluation on Sunday. - Patient Problems (1) Pre-syncope Current Visit: Yes Status: Acute (2) Chest pain Current Visit: Yes Status: Acute Qualifiers: Qualified Code(s): R07.9 - Chest pain, unspecified (3) Dizziness Current Visit: Yes Status: Acute (4) CAD (coronary artery disease) Current Visit: Yes Status: Chronic Qualifiers: Coronary Disease-Associated Artery/Lesion type: [place] artery [place] vs. transplanted heart: crow heart (5) History of coronary artery stent placement Current Visit: Yes Status: Chronic (6) Ischemic cardiomyopathy Current Visit: Yes Status: Chronic (7) Chronic HFrEF (heart failure with reduced ejection fraction) Current Visit: Yes Status: Chronic (8) HTN (hypertension) Current Visit: Yes Status: Chronic Qualifiers: Hypertension type: essential hypertension Qualified Code(s): I10 - Essential (primary) hypertension (9) Hx of pulmonary embolus Current Visit: Yes Status: Chronic
--- NOTE | 2019-05-31 12:34 | Progress Note ---
Assessment and Plan Assessment and plan: Patient is 78-year-old -[place] male with history of CHF with EF 35-45%, CAD status post PCI 4 (most recent 11/13/17), [place] 2, HTN, HLD, DM, GI bleed, diverticulitis, asthma, and questionable history of PE who presents to [facility] ED with complaints of chest pain and near syncopal episode. Acute Exacerbation CHF -EF 35-40% sen on Echo 04/07/2019 -BNP elevated at 1988 -Troponin negative 2 -CXR did not show any acute findings -Continue po Lasix -Cardiology consulted Chest Pain -Initiate chest pain protocol -Continuous telemetry monitoring -Continue supportive care -Pain mgmt -Troponin neg x2 -Continue ASA and Statin -Hx of [place] x2 -Cardiology consulted Near-syncopal episode -CT Head negative -Patient complains of dizziness and lightheadedness -Admits to almost passing out and falling to the ground -Denies loss of consciousness -Bilateral carotid Doppler pending Hypertension -Continue to monitor BP -Resume home antihypertensive medication to optimize BP DM 2 -POC BG monitoring -SSI coverage Hx HLD -On statin -Lipid panel pending History of GI bleed History of Diverticulitis History CAD -S/P stent x 4 (most recent 11/13/17) DVT PPX -SCD's Full code status. History Interval history: Chest pain Dizziness near syncope Hospitalist Physical - Physical exam Narrative exam: Gen: Not in acute distress, lying in bed, HEENT: Normocephalic, atraumatic Neck: supple, no JVD Heart: S1 and S2 reg, no murmurs, rubs or gallop Lungs: Clear to auscultation, no rhonchi, no wheeze Abd: soft, non tender, non distended, normal BS, Ext: No edema, no clubbing, no cyanosis Neuro: Awake, alert, oriented X 3, no focal neurological signs - Constitutional Vitals: Temp Pulse Resp BP Pulse Ox 97.6 F 68 16 119/69 99 05/31/19 07:53 05/31/19 10:00 05/31/19 10:00 05/31/19 09:42 05/31/19 10:00 General appearance: Present: no acute distress Results - Labs CBC & Chem 7: 05/31/19 06:29 05/31/19 06:29 Labs: Laboratory Last Values WBC 5.1 K/mm3 (4.5-11.0) 05/31/19 06:29 RBC 4.29 M/mm3 (3.65-5.03) 05/31/19 06:29 Hgb 13.9 gm/dl (11.8-15.2) 05/31/19 06:29 Hct 41.1 % (35.5-45.6) 05/31/19 06:29 MCV 96 fl (84-94) H 05/31/19 06:29 MCH 32 pg (28-32) 05/31/19 06:29 MCHC 34 % (32-34) 05/31/19 06: RDW 13.6 % (13.2-15.2) 05/31/19 06:29 Plt Count 176 K/mm3 (140-440) 05/31/19 06:29 Lymph % (Auto) 34.8 % (13.4-35.0) 05/31/19 06:29 [place] % (Auto) 12.2 % (0.0-7.3) H 05/31/19 06:29 Eos % (Auto) 11.4 % (0.0-4.3) H 05/31/19 06:29 Baso % (Auto) 0.8 % (0.0-1.8) 05/31/19 06:29 Lymph # 1.8 K/mm3 (1.2-5.4) 05/31/19 06:29 [place] # 0.6 K/mm3 (0.0-0.8) 05/31/19 06:29 Eos # 0.6 K/mm3 (0.0-0.4) H 05/31/19 06:29 Baso # 0.0 K/mm3 (0.0-0.1) 05/31/19 06:29 Seg Neutrophils % 40.8 % (40.0-70.0) 05/31/19 06: Seg Neutrophils # 2.1 K/mm3 (1.8-7.7) 05/31/19 06:29 Sodium 144 mmol/L (137-145) 05/31/19 06:29 Potassium 4.6 mmol/L (3.6-5.0) 05/31/19 06:29 Chloride 103.0 mmol/L (98-107) 05/31/19 06:29 Carbon Dioxide 29 mmol/L (22-30) 05/31/19 06:29 Anion Gap 17 mmol/L 05/31/19 06:29 BUN 23 mg/dL (9-20) H 05/31/19 06:29 Creatinine 1.4 mg/dL (0.8-1.5) 05/31/19 06:29 Estimated GFR 59 ml/min 05/31/19 06:29 BUN/Creatinine Ratio 16 % 05/31/19 06:29 Glucose 92 mg/dL (75-100) 05/31/19 06:29 POC Glucose 91 (70-105) 05/31/19 06:22 Calcium 9.0 mg/dL (8.4-10.2) 05/31/19 06:29 Phosphorus 4.00 mg/dL (2.5-4.5) 05/30/19 19:03 Magnesium 1.70 mg/dL (1.7-2.3) 05/30/19 19:03 Troponin T < 0.010 ng/mL (0.00-0.029) 05/30/19 19:03 NT-Pro-B Natriuret Pep 1989 pg/mL (0-900) H 05/30/19 19:03 Urine Color Yellow (Yellow) 05/30/19 16:59 Urine Turbidity Clear (Clear) 05/30/19 16:59 Urine pH 5.0 (5.0-7.0) 05/30/19 16:59 Ur Specific [place] 1.010 (1.003-1.030) 05/30/19 16:59 Urine Protein <15 mg/dl mg/dL (Negative) 05/30/19 16:59 Urine Glucose (UA) Neg mg/dL (Negative) 05/30/19 16:59 Urine Ketones Neg mg/dL (Negative) 05/30/19 16:59 Urine Blood Neg (Negative) 05/30/19 16:59 Urine Nitrite Neg (Negative) 05/30/19 16:59 Urine Bilirubin Neg (Negative) 05/30/19 16:59 Urine Urobilinogen < 2.0 mg/dL (<2.0) 05/30/19 16:59 Ur Leukocyte Esterase Neg (Negative) 05/30/19 16:59 Urine WBC (Auto) < 1.0 /HPF (0.0-6.0) 05/30/19 16:59 Urine RBC (Auto) 3.0 /HPF (0.0-6.0) 05/30/19 16:59 Active Medications - Current Medications Current Medications: Generic Name Dose Route Start Last Admin Trade Name Freq PRN Reason Stop Dose Admin Acetaminophen 650 mg 05/30/19 21:40 Tylenol PO Q4H PRN Pain MILD(1-3)/Fever >100.5/TO Albuterol 2.5 mg 05/30/19 21:40 Proventil IH Q3HRT PRN Shortness Of Breath Aspirin 81 mg 05/31/19 10:00 05/31/19 09:41 Halfprin Ec PO 81 mg DAILY [facility] Administration Atorvastatin Calcium 40 mg 05/31/19 10:00 05/31/19 09:41 Lipitor PO 40 mg DAILY [facility] Administration Dextrose 50 ml 05/30/19 21:40 D50w (25gm) Syringe IV PRN PRN Hypoglycemia Furosemide 20 mg 05/31/19 10:00 05/31/19 09:41 Lasix PO 20 mg DAILY [facility] Administration Hydromorphone HCl 0.5 mg 05/30/19 21:40 Dilaudid IV Q3H PRN Pain , Severe (7-10) Insulin Human Lispro 0 unit 05/31/19 00:00 05/31/19 06:17 Humalog SUB-Q Not Given Q6HR [facility] Protocol Isosorbide Mononitrate 30 mg 05/31/19 10:00 05/31/19 09:42 Imdur PO 30 mg DAILY [facility] Administration Lisinopril 10 mg 05/31/19 12:14 Zestril PO DAILY [facility] Meloxicam 15 mg 05/31/19 10:00 05/31/19 09:42 Mobic PO 15 mg QDAY [facility] Administration Metoprolol Tartrate 25 mg 05/31/19 14:00 Lopressor PO TID [facility] Morphine Sulfate 2 mg 05/30/19 21:40 Morphine IV Q4H PRN Pain, Moderate (4-6) Nitroglycerin 0.4 mg 05/30/19 21:46 Nitrostat SL Q5M PRN Chest Pain Ondansetron HCl 4 mg 05/30/19 21:40 Zofran IV Q6H PRN Nausea And Vomiting Ranolazine 500 mg 05/30/19 22:00 05/31/19 09:41 Ranexa Er PO 500 mg BID [facility] Administration Sodium Chloride 10 ml 05/30/19 22:00 05/31/19 09:43 Sodium Chloride Flush Syringe 10 Ml IV 10 ml BID [facility] Administration Sodium Chloride 10 ml 05/30/19 21:40 Sodium Chloride Flush Syringe 10 Ml IV PRN PRN LINE FLUSH
[2019-05-31] MEDS: ZESTRIL PO SCH (14:58)
[2019-05-31] MEDS: ENOXAPARIN SUB-Q SCH (21:00)
[2019-06-01] MEDS: HumaLOG SUB-Q SCH ×4 (01:44→17:21)
[2019-06-01] MEDS: HALFPRIN EC PO SCH (09:17)
[2019-06-01] MEDS: RANEXA ER PO SCH ×2 (09:17→22:06)
[2019-06-01] MEDS: MOBIC PO SCH (09:17)
[2019-06-01] MEDS: ZESTRIL PO SCH (09:17)
[2019-06-01] MEDS: LASIX PO SCH (09:18)
[2019-06-01] MEDS: METOPROLOL PO SCH ×3 (09:18→20:00)
[2019-06-01] MEDS: IMDUR PO SCH (09:18)
[2019-06-01] MEDS: SODIUM CHLORIDE FLUSH SYRINGE 10 ML IV SCH ×2 (09:19→22:07)
--- NOTE | 2019-06-01 12:23 | Progress Note ---
Assessment and Plan Hold Lasix. Gentle IV hydration. - Patient Problems (1) Pre-syncope Current Visit: Yes Status: Acute (2) Chest pain Current Visit: Yes Status: Acute Qualifiers: Qualified Code(s): R07.9 - Chest pain, unspecified (3) Dizziness Current Visit: Yes Status: Acute (4) CAD (coronary artery disease) Current Visit: Yes Status: Chronic Qualifiers: Coronary Disease-Associated Artery/Lesion type: [place] artery [place] vs. transplanted heart: [place] heart (5) History of coronary artery stent placement Current Visit: Yes Status: Chronic (6) Ischemic cardiomyopathy Current Visit: Yes Status: Chronic (7) Chronic HFrEF (heart failure with reduced ejection fraction) Current Visit: Yes Status: Chronic (8) NSVT (nonsustained ventricular tachycardia) Current Visit: Yes Status: Acute (9) HTN (hypertension) Current Visit: Yes Status: Chronic Qualifiers: Hypertension type: essential hypertension Qualified Code(s): I10 - Essential (primary) hypertension (10) Hx of pulmonary embolus Current Visit: Yes Status: Chronic Subjective Date of service: 06/01/19 Principal diagnosis: Presyncope, NSVT, CP, CAD, s/p PCI, Ischemic CMP, Chronic HFrEF, HTN Interval history: He claims that he experienced dizziness in the upright position this morning. Notably, he was orthostatic yesterday. He had a 3-beat run of nonsustained VT yesterday evening. Objective Vital Signs Temp Pulse Resp Resp BP BP Pulse Ox 06/01/19 10:00 68 18 99 06/01/19 09:18 77 127/72 06/01/19 09:17 77 127/72 06/01/19 07:51 98.2 F 77 18 127/72 85 06/01/19 04:25 98.0 F 57 L 18 136/73 96 05/31/19 23:20 97.8 F 55 L 20 115/65 98 05/31/19 22:00 18 99 05/31/19 21:50 18 05/31/19 20:51 56 L 129/77 05/31/19 20:50 18 18 05/31/19 20:21 58 L 05/31/19 20:05 97.6 F 56 L 18 129/77 98 05/31/19 18:44 98.2 F 53 L 18 116/65 85 05/31/19 14:58 63 123/68 05/31/19 14:49 97.8 F 63 18 123/68 100 - Physical Examination HEENT: Positive: EOMI, Normocephaly, Mucus Membranes Moist Neck: Positive: neck supple, trachea midline Cardiac: Positive: Reg Rate and Rhythm, S1/S2 Lungs: Positive: clear to auscultation Neuro: Positive: Grossly Intact Abdomen: Positive: Soft, Active Bowel Sounds. Negative: Tender Skin: Positive: Clear. Negative: Rash Musculoskeletal: Normal Range of Motion Extremities: Present: normal. Absent: edema - Imaging and Cardiology EKG: image reviewed - Telemetry EKG Rhythm: Sinus Rhythm - EKG Sinus rhythms and dysrhythmias: sinus rhythm Ventricular dysrhythmias: ventricular premature com, non-sustained ventricular
[2019-06-01] MEDS ORDERED: NACL 0.9% 250ML 250 ML IV ONE (12:29)
[2019-06-01] MEDS ORDERED: ZESTRIL PO SCH (12:30)
--- NOTE | 2019-06-01 15:22 | Progress Note ---
Assessment and Plan Assessment and plan: Patient is 78-year-old -[place]ian male with history of CHF with EF 35-45%, CAD status post PCI 4 (most recent 11/13/17), [place] 2, HTN, HLD, DM, GI bleed, diverticulitis, asthma, and questionable history of PE who presents to [facility] ED with complaints of chest pain and near syncopal episode. Acute Exacerbation CHF -EF 35-40% sen on Echo 04/07/2019 -BNP elevated at 1988 -Troponin negative 2 -Po Lasix on hold because elevated BUN/Cr ratio, orthostatic hypotension -Cardiology consulted, following Orthostatic hypotension hold Lasix Gentle hydration Chest Pain -Initiate chest pain protocol -Continuous telemetry monitoring -Continue supportive care -Pain mgmt -Troponin neg x2 -Continue ASA and Statin -Hx of [place] x2 -Cardiology consulted, following Near-syncopal episode -CT Head negative -Patient complains of dizziness and lightheadedness -Admits to almost passing out and falling to the ground -Denies loss of consciousness Hypertension -Continue to monitor BP DM 2 -POC BG monitoring -SSI coverage Hx HLD -On statin History of GI bleed History of Diverticulitis History CAD -S/P stent x 4 (most recent 11/13/17) DVT PPX -SCD's Full code status. Poss dc home tomorrow History Interval history: Chest pain Dizziness near syncope Hospitalist Physical - Physical exam Narrative exam: Gen: Not in acute distress, lying in bed, HEENT: Normocephalic, atraumatic Neck: supple, no JVD Heart: S1 and S2 reg, no murmurs, rubs or gallop Lungs: Clear to auscultation, no rhonchi, no wheeze Abd: soft, non tender, non distended, normal BS, Ext: No edema, no clubbing, no cyanosis Neuro: Awake, alert, oriented X 3, no focal neurological signs - Constitutional Vitals: Temp Pulse Resp BP Pulse Ox 98.2 F 68 18 127/72 99 06/01/19 07:51 06/01/19 10:00 06/01/19 10:00 06/01/19 09:18 06/01/19 10:00 General appearance: Present: no acute distress Results - Labs CBC & Chem 7: 05/31/19 06:29 05/31/19 06:29 Labs: Laboratory Last Values WBC 5.1 K/mm3 (4.5-11.0) 05/31/19 06:29 RBC 4.29 M/mm3 (3.65-5.03) 05/31/19 06:29 Hgb 13.9 gm/dl (11.8-15.2) 05/31/19 06:29 Hct 41.1 % (35.5-45.6) 05/31/19 06:29 MCV 96 fl (84-94) H 05/31/19 06:29 MCH 32 pg (28-32) 05/31/19 06:29 MCHC 34 % (32-34) 05/31/19 06: RDW 13.6 % (13.2-15.2) 05/31/19 06:29 Plt Count 176 K/mm3 (140-440) 05/31/19 06:29 Lymph % (Auto) 34.8 % (13.4-35.0) 05/31/19 06:29 [place] % (Auto) 12.2 % (0.0-7.3) H 05/31/19 06:29 Eos % (Auto) 11.4 % (0.0-4.3) H 05/31/19 06:29 Baso % (Auto) 0.8 % (0.0-1.8) 05/31/19 06:29 Lymph # 1.8 K/mm3 (1.2-5.4) 05/31/19 06:29 [place] # 0.6 K/mm3 (0.0-0.8) 05/31/19 06:29 Eos # 0.6 K/mm3 (0.0-0.4) H 05/31/19 06:29 Baso # 0.0 K/mm3 (0.0-0.1) 05/31/19 06:29 Seg Neutrophils % 40.8 % (40.0-70.0) 05/31/19 06: Seg Neutrophils # 2.1 K/mm3 (1.8-7.7) 05/31/19 06:29 Sodium 144 mmol/L (137-145) 05/31/19 06:29 Potassium 4.6 mmol/L (3.6-5.0) 05/31/19 06:29 Chloride 103.0 mmol/L (98-107) 05/31/19 06:29 Carbon Dioxide 29 mmol/L (22-30) 05/31/19 06:29 Anion Gap 17 mmol/L 05/31/19 06:29 BUN 23 mg/dL (9-20) H 05/31/19 06:29 Creatinine 1.4 mg/dL (0.8-1.5) 05/31/19 06:29 Estimated GFR 59 ml/min 05/31/19 06:29 BUN/Creatinine Ratio 16 % 05/31/19 06:29 Glucose 92 mg/dL (75-100) 05/31/19 06:29 POC Glucose 106 (70-105) H 06/01/19 11:25 Calcium 9.0 mg/dL (8.4-10.2) 05/31/19 06:29 Phosphorus 4.00 mg/dL (2.5-4.5) 05/30/19 19:03 Magnesium 1.70 mg/dL (1.7-2.3) 05/30/19 19:03 Troponin T < 0.010 ng/mL (0.00-0.029) 05/30/19 19:03 NT-Pro-B Natriuret Pep 1989 pg/mL (0-900) H 05/30/19 19:03 Urine Color Yellow (Yellow) 05/30/19 16:59 Urine Turbidity Clear (Clear) 05/30/19 16:59 Urine pH 5.0 (5.0-7.0) 05/30/19 16:59 Ur Specific [place] 1.010 (1.003-1.030) 05/30/19 16:59 Urine Protein <15 mg/dl mg/dL (Negative) 05/30/19 16:59 Urine Glucose (UA) Neg mg/dL (Negative) 05/30/19 16:59 Urine Ketones Neg mg/dL (Negative) 05/30/19 16:59 Urine Blood Neg (Negative) 05/30/19 16:59 Urine Nitrite Neg (Negative) 05/30/19 16:59 Urine Bilirubin Neg (Negative) 05/30/19 16:59 Urine Urobilinogen < 2.0 mg/dL (<2.0) 05/30/19 16:59 Ur Leukocyte Esterase Neg (Negative) 05/30/19 16:59 Urine WBC (Auto) < 1.0 /HPF (0.0-6.0) 05/30/19 16:59 Urine RBC (Auto) 3.0 /HPF (0.0-6.0) 05/30/19 16:59 Active Medications - Current Medications Current Medications: Generic Name Dose Route Start Last Admin Trade Name Freq PRN Reason Stop Dose Admin Acetaminophen 650 mg 05/30/19 21:40 05/31/19 20:50 Tylenol PO 650 mg Q4H PRN Administration Pain MILD(1-3)/Fever >100.5/TO Albuterol 2.5 mg 05/30/19 21:40 Proventil IH Q3HRT PRN Shortness Of Breath Aspirin 81 mg 05/31/19 10:00 06/01/19 09:17 Halfprin Ec PO 81 mg DAILY [facility] Administration Atorvastatin Calcium 40 mg 05/31/19 10:00 06/01/19 09:17 Lipitor PO 40 mg DAILY [facility] Administration Dextrose 50 ml 05/30/19 21:40 D50w (25gm) Syringe IV PRN PRN Hypoglycemia Enoxaparin Sodium 40 mg 05/31/19 22:00 05/31/19 21:00 Lovenox SUB-Q 40 mg QDAY@2200 [facility] Administration Hydromorphone HCl 0.5 mg 05/30/19 21:40 Dilaudid IV Q3H PRN Pain , Severe (7-10) Sodium Chloride 250 mls @ 50 mls/hr 06/01/19 12:29 Nacl 0.9% 250ml IV 06/01/19 17:28 ONCE ONE Insulin Human Lispro 0 unit 05/31/19 00:00 06/01/19 13:51 Humalog SUB-Q Not Given Q6HR [facility] Protocol Isosorbide Mononitrate 30 mg 05/31/19 10:00 06/01/19 09:18 Imdur PO 30 mg DAILY [facility] Administration Lisinopril 5 mg 06/01/19 12:30 Zestril PO DAILY [facility] Meloxicam 15 mg 05/31/19 10:00 06/01/19 09:17 Mobic PO 15 mg QDAY [facility] Administration Metoprolol Tartrate 25 mg 05/31/19 14:00 06/01/19 09:18 Lopressor PO 25 mg TID [facility] Administration Morphine Sulfate 2 mg 05/30/19 21:40 Morphine IV Q4H PRN Pain, Moderate (4-6) Nitroglycerin 0.4 mg 05/30/19 21:46 Nitrostat SL Q5M PRN Chest Pain Ondansetron HCl 4 mg 05/30/19 21:40 Zofran IV Q6H PRN Nausea And Vomiting Ranolazine 500 mg 05/30/19 22:00 06/01/19 09:17 Ranexa Er PO 500 mg BID [facility] Administration Sodium Chloride 10 ml 05/30/19 22:00 06/01/19 09:19 Sodium Chloride Flush Syringe 10 Ml IV 10 ml BID [facility] Administration Sodium Chloride 10 ml 05/30/19 21:40 Sodium Chloride Flush Syringe 10 Ml IV PRN PRN LINE FLUSH
[2019-06-01] MEDS: ENOXAPARIN SUB-Q SCH (22:06)
[2019-06-02] MEDS: HumaLOG SUB-Q SCH ×3 (08:47→12:49)
[2019-06-02] MEDS: IMDUR PO SCH (09:27)
[2019-06-02] MEDS: RANEXA ER PO SCH (09:27)
[2019-06-02] MEDS: MOBIC PO SCH (09:27)
[2019-06-02] MEDS: METOPROLOL PO SCH (09:28)
[2019-06-02] MEDS: HALFPRIN EC PO SCH (09:28)
[2019-06-02] MEDS: SODIUM CHLORIDE FLUSH SYRINGE 10 ML IV SCH (09:33)
[2019-06-02 11:52] VITALS: BP 148/79
--- NOTE | 2019-06-02 11:56 | Progress Note ---
Assessment and Plan Pt reports resolution of chest pain and dizziness. He has been ambulating without difficulty. Currently stable cardiac status. Pt may discharge home from cardiology standpoint on current cardiac regimen. Recommend follow up in our office with Dr. Yan within 1-2 weeks of discharge ([phone]). The patient has been seen in conjunction with Dr. Munroe who agrees with the assessment and plan of care. - Patient Problems (1) Pre-syncope Current Visit: Yes Status: Resolved (2) Chest pain Current Visit: Yes Status: Resolved Qualifiers: Qualified Code(s): R07.9 - Chest pain, unspecified (3) Dizziness Current Visit: Yes Status: Resolved (4) CAD (coronary artery disease) Current Visit: Yes Status: Chronic Qualifiers: Coronary Disease-Associated Artery/Lesion type: [place] artery [place] vs. transplanted heart: [place] heart (5) History of coronary artery stent placement Current Visit: Yes Status: Chronic (6) Ischemic cardiomyopathy Current Visit: Yes Status: Chronic (7) Chronic HFrEF (heart failure with reduced ejection fraction) Current Visit: Yes Status: Chronic (8) NSVT (nonsustained ventricular tachycardia) Current Visit: Yes Status: Acute (9) HTN (hypertension) Current Visit: Yes Status: Chronic Qualifiers: Hypertension type: essential hypertension Qualified Code(s): I10 - Essential (primary) hypertension (10) Hx of pulmonary embolus Current Visit: Yes Status: Chronic Subjective Date of service: 06/02/19 Principal diagnosis: Presyncope, NSVT, CP, CAD, s/p PCI, Ischemic CMP, Chronic HFrEF, HTN Interval history: Pt resting comfortably in bed, no current complaints. in SR on telemetry. Objective Last Vital Signs Temp 98.0 F 06/02/19 11:31 Pulse 56 L 06/02/19 11:31 Resp 18 06/02/19 11:31 BP 148/79 06/02/19 11:31 Pulse Ox 96 06/02/19 11:31 - Physical Examination General: No Apparent Distress HEENT: Positive: EOMI, Normocephaly, Mucus Membranes Moist Neck: Positive: neck supple, trachea midline Cardiac: Positive: Reg Rate and Rhythm, S1/S2 Lungs: Positive: Decreased Breath Sounds Neuro: Positive: Grossly Intact Abdomen: Positive: Soft, Active Bowel Sounds. Negative: Tender Skin: Positive: Clear. Negative: Rash Musculoskeletal: Normal Range of Motion Extremities: Present: normal. Absent: edema - Imaging and Cardiology EKG: image reviewed Pharmacologic stress test: report reviewed (03/2019: mildly abnormal with mild to mod sized basal inferior fixed defect, questionable artifact v. prior infarct, no reversible ischemia, EF 50%) Echo: report reviewed (03/2019: EF 35-40%, mild MR, mild TR, impaired relaxation) Cardiac cath: report reviewed ([facility] 11/16/2017: patent stents, mild to mod disease elsewhere. most recent PCI of mid-LAD on 11/13/2017 at [facility] per Dr. Segundo Mcintyre) - Telemetry EKG Rhythm: Sinus Rhythm - EKG Sinus rhythms and dysrhythmias: sinus rhythm Ventricular dysrhythmias: ventricular premature com, non-sustained ventricular
[2019-06-02] MEDS ORDERED: EFFIENT PO SCH (13:00)
--- NOTE | 2019-06-02 14:06 | Vascular Lab Report ---
. BILATERAL CAROTID DOPPLER ULTRASOUND INDICATION : near syncopal episode TECHNIQUE: Grayscale and color Doppler imaging performed through the neck. COMPARISON: None FINDINGS: Right: There is mild partially calcified plaque at the bifurcation. Peak systolic velocity in the C CA is 78 cm/s with end-diastolic velocity of 15 cm/s. Peak systolic velocity in the proximal ICA is 6 8 cm/s with end-diastolic velocity of 26 cm/s. ICA to CCA ratio is less than 2. There is antegrade f low in the ECA and the vertebral artery. Left: There is minimal partially calcified plaque at the bifurcation. Peak systolic velocity in the C CA is 75 cm/s with end-diastolic velocity of 15 cm/s. Peak systolic velocity in the proximal ICA is 7 7 cm/s with end-diastolic velocity of 12 cm/s. ICA to CCA ratio is less than 2. There is antegrade f low in the ECA and the vertebral artery. IMPRESSION: No hemodynamically significant stenosis by NASCET criteria. Signer Name: Clem Dobbins Jr, MD Signed: 06/02/2019 2:02 PM Workstation Name: [id number]
--- NOTE | 2019-06-02 14:55 | Discharge Summary ---
Providers - Providers Date of Admission: 05/30/19 20:22 Date of discharge: 06/02/19 Attending physician: CHERELLE SMITH 05/30/19 21:40 Consult to Physician [CONS] Routine Comment: Consulting Provider: LATOYA MIRANDA Physician Instructions: Reason For Exam: ae chf, chest pain, est pt Primary care physician: SHERICE BASILIO MD Hospitalization Condition: Fair Disposition: DC-01 TO HOME OR SELFCARE Core Measure Documentation - Palliative Care Palliative Care/ Comfort Measures: Not Applicable - Core Measures Any of the following diagnoses?: none Exam - Constitutional Vitals: Temp Pulse Resp BP Pulse Ox 98.0 F 56 L 18 148/79 96 06/02/19 11:31 06/02/19 11:31 06/02/19 11:31 06/02/19 11:31 06/02/19 11:31 Plan Activity: no restrictions Diet: low fat, low cholesterol, low salt Plan of Treatment: 1.Follow up with PCP in 1 week. 2.Follow up with Dr. Valencia in 1 week Follow up with: PRIMARY CAREMD [Primary Care Provider] - 3-5 Days
== END 2019-06-02 16:15 | disposition home or self-care (01) ==
LOC: EDBD → ED 16:24 → 4A 20:22 → INTOOBSV 20:22
PROVIDERS: ADMIT Internal Medicine; ATTEND Internal Medicine
DX: R07.89 Other chest pain (principal); R55 Syncope and collapse; R42 Dizziness and giddiness; I11.0 Hypertensive heart disease with heart failure; I50.9 Heart failure, unspecified; E11.9 Type 2 diabetes mellitus without complications; E78.5 Hyperlipidemia, unspecified; I25.10 Atherosclerotic heart disease of native coronary artery without angina pectoris
CPT/HCPCS: 36415; 70450; 71046; 71275; 80048; 81001; 82962; 83735; 83880; 84100; 84484; 85025; 87116; 93005; 93010; 93880; 96372; 99284; A9270; G0378; J1650; J7050; Q9967

== ENCOUNTER 2019-06-09 13:48 | Inpatient (IN) | payer MEDICARE ==
--- NOTE | 2019-06-09 14:47 | Emergency Department Report ---
<ZAIRA TEPMLETON - Last Filed: 06/09/19 18:45> ED GI Bleed HPI - General Chief complaint: GI Bleed Stated complaint: POSS GI BLEED Time Seen by Provider: 06/09/19 14:33 Source: EMS Mode of arrival: Stretcher Limitations: No Limitations - History of Present Illness Initial comments: Patient is 78-year-old -Polish male with history of CHF(EF 35-45%), CAD status post PCI 4 (most recent 11/13/17), SC 2, HTN, HLD, DM, GI bleed, prostate cancer, diverticulitis, and asthma presents today with complaints of bright red blood in stools 3 episodes this morning. He admits to upper abdominal pain. Also complains of an episode of dizziness following blood in stools grocery shopping. Patient states he became lightheaded, however did not pass out. He denies chest pain, headache, nausea, vomiting, numbness/tingling, weakness. Patient has history of a GI bleed in 2016follow with Chaya Torres at that time. He states his current pain as a 5 out of 10 in severity. He denies any further dizziness. Patient denies blood thinners at home, but admits to taking 81 mg aspirin daily, including today. MD complaint: gross hematochezia -: Sudden Severity scale (0 -10): 5 Quality: dull Consistency: constant Worsens with: none Context: history of GI bleed Associated Symptoms: abdominal pain. denies: nausea, vomiting, headaches, loss of appetite, shortness of breath - Related Data Home Medications Medication Instructions Recorded Confirmed Last Taken AtorvaSTATin [Lipitor] 40 mg PO DAILY 02/18/16 06/09/19 06/08/19 Ranolazine ER [Ranexa ER] 1 tab PO BID 04/07/19 06/09/19 06/08/19 Aspirin EC [Halfprin EC] 81 mg PO DAILY 05/30/19 06/09/19 06/08/19 Brimonidine Tartrate [Alphagan P 1 drop OU TID 05/30/19 06/09/19 06/08/19 0.1%] Meclizine [Antivert] 25 mg PO TID PRN 06/09/19 06/09/19 06/08/19 Previous Rx's Medication Instructions Recorded Last Taken Type Lisinopril [Zestril TAB] 5 mg PO QDAY #30 tablet 06/02/19 06/08/19 Rx Allergies Allergy/AdvReac Type Severity Reaction Status Date / Time No Known Allergies Allergy Unverified 02/18/16 09:53 ED Review of Systems Comment: All other systems reviewed and negative Respiratory: no symptoms reported. denies: shortness of breath Gastrointestinal: as per HPI ED Past Medical Hx - Past Medical History Hx Hypertension: Yes Hx Heart Attack/AMI: Yes Hx Congestive Heart Failure: Yes Hx Diabetes: Yes Hx Pulmonary Embolism: Yes Hx Arthritis: Yes Hx Asthma: Yes (controlled) Hx HIV: No Additional medical history: GI bleed, 4 coronary stents - Surgical History Past Surgical History?: No Hx Coronary Stent: Yes - Social History Smoking Status: Unknown if ever smoked Substance Use Type: None - Medications Home Medications: Home Medications Medication Instructions Recorded Confirmed Last Taken Type AtorvaSTATin [Lipitor] 40 mg PO DAILY 02/18/16 06/09/19 06/08/19 History Ranolazine ER [Ranexa ER] 1 tab PO BID 04/07/19 06/09/19 06/08/19 History Aspirin EC [Halfprin EC] 81 mg PO DAILY 05/30/19 06/09/19 06/08/19 History Brimonidine Tartrate [Alphagan P 1 drop OU TID 05/30/19 06/09/19 06/08/19 History 0.1%] Lisinopril [Zestril TAB] 5 mg PO QDAY #30 tablet 06/02/19 06/09/19 06/08/19 Rx Meclizine [Antivert] 25 mg PO TID PRN 06/09/19 06/09/19 06/08/19 History ED Physical Exam - General Limitations: No Limitations General appearance: alert, in no apparent distress - Head Head exam: Present: atraumatic, normocephalic - Eye Eye exam: Present: normal appearance - Neck Neck exam: Present: full ROM - Respiratory Respiratory exam: Present: normal lung sounds bilaterally. Absent: respiratory distress - Cardiovascular Cardiovascular Exam: Present: regular rate, normal rhythm, normal heart sounds - GI/Abdominal GI/Abdominal exam: Present: soft, tenderness (epigastric), normal bowel sounds. Absent: distended, guarding, rebound, rigid - Rectal Rectal exam: Present: heme (+) stool (dark red blood ) - Extremities Exam Extremities exam: Present: full ROM. Absent: pedal edema - Psychiatric Psychiatric exam: Present: normal affect, normal mood - Skin Skin exam: Present: warm, dry, intact, normal color. Absent: rash ED Medical Decision Making - Lab Data Result diagrams: 06/09/19 14:50 06/09/19 14:50 - Radiology Data CT angio abdomen pelvis INDICATION / CLINICAL INFORMATION: Lower GI bleed.. TECHNIQUE: Axial CT images were obtained after injection of Omnipaque 350, 100 cc IV contrast using CTA protocol. 3 plane MIP / 3D reconstructions were produced. All CT scans at this location are per formed using CT dose reduction for ALARA by means of automated exposure control. COMPARISON: CT abdomen and pelvis 02/18/2016. CT abdomen: The aorta is normal in caliber and contains mild atherosclerotic calcification. The renal arteries and mesenteric vessels are patent. Mild stenosis is seen at the proximal right renal artery. A 5 focal dissection is seen along the undersurface of the distal celiac axis. Mild narrowing is present the origin of the SMA. Evaluation the parenchymal organs demonstrates renal cortical scarring bilaterally and benign- appearing cysts. CTA PELVIS: The iliac vessels are mildly tortuous but widely patent. A mass at the proximal sigmoid colon (series 2, image 166) measures 4.9 x 3.6 cm and likely infiltration into the adjacent soft tissues. A few adjacent lymph nodes all measure less than 1 cm. Noninflamed diverticula are noted. IMPRESSION: 1. 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 2. Atherosclerotic disease of the aorta and its branches without active bleeding site or high-grade focal stenosis. 3. Renal scarring left greater than right and benign appearing renal cysts. - Medical Decision Making 78-year-old male patient here with complaints of hematochezia x this morning. History of diverticulitis and prostate cancer. CBC shows some decreased hematocrit and hemoglobin in comparison to 05/30/2019 results. Positive mild abdominal pain. 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 Discussed patient with Dr. Adkins-recommend admission. Patient handed off to Dr. Adkins for admission. Vitals are stable. ED Disposition Clinical Impression: LGI bleed, Mass of colon Disposition: -09 OP ADMIT IP TO THIS HOSP Is pt being admited?: Yes Condition: Fair Referrals: PRIMARY CARE, [Referring] - 3-5 Days Forms: Accompanied Note <CHERELLE ADKINS - Last Filed: 06/09/19 20:14> ED Review of Systems ROS: Stated complaint: POSS GI BLEED Other details as noted in HPI ED Course Vital Signs 06/09/19 06/09/19 06/09/19 14:17 15:00 15:27 Temperature 98.2 F Pulse Rate 79 80 66 Respiratory 18 14 14 Rate Blood Pressure Blood Pressure 107/63 107/63 104/63 [Right] O2 Sat by Pulse 100 100 97 Oximetry 06/09/19 06/09/19 06/09/19 16:03 17:55 19:00 Temperature Pulse Rate 60 84 87 Respiratory 16 25 H Rate Blood Pressure 130/70 Blood Pressure 116/65 109/61 [Right] O2 Sat by Pulse 98 98 Oximetry - Reevaluation(s) Reevaluation #1: 06/09/19 20:13 CT scan suggests colonic malignancy. Blood pressure remains stable. Contacted Hospital nurse practitioner, Floridalma Brown, working with Dr. Rincon, the patient is accepted to the medical service. ED Medical Decision Making - Lab Data Result diagrams: 06/09/19 14:50 06/09/19 14:50 Vital Signs (72 hours) 06/09/19 06/09/19 06/09/19 14:17 15:00 15:27 Temperature 98.2 F Pulse Rate 79 80 66 Respiratory 18 14 14 Rate Blood Pressure 107/63 107/63 104/63 [Right] O2 Sat by Pulse 100 100 97 Oximetry 06/09/19 06/09/19 16:03 17:55 Temperature Pulse Rate 60 84 Respiratory 16 Rate Blood Pressure 116/65 109/61 [Right] O2 Sat by Pulse 98 Oximetry Lab Results 06/09/19 06/09/19 06/09/19 Range/Units 14:50 14:50 14:50 WBC 10.5 (4.5-11.0) K/mm3 RBC 3.30 L (3.65-5.03) M/mm3 Hgb 10.7 L (11.8-15.2) gm/dl Hct 32.3 L (35.5-45.6) % MCV 98 H (84-94) fl MCH 32 (28-32) pg MCHC 33 (32-34) % RDW 13.3 (13.2-15.2) % Plt Count 171 (140-440) K/mm3 Lymph % (Auto) 12.5 L (13.4-35.0) % [place] % (Auto) 6.4 (0.0-7.3) % Eos % (Auto) 3.6 (0.0-4.3) % Baso % (Auto) 0.5 (0.0-1.8) % Lymph # 1.3 (1.2-5.4) K/mm3 [place] # 0.7 (0.0-0.8) K/mm3 Eos # 0.4 (0.0-0.4) K/mm3 Baso # 0.1 (0.0-0.1) K/mm3 Seg Neutrophils % 77.0 H (40.0-70.0) % Seg Neutrophils # 8.1 H (1.8-7.7) K/mm3 PT 14.3 (12.2-14.9) Sec. INR 1.14 H (0.87-1.13) APTT 31.0 (24.2-36.6) Sec. Sodium 148 H (137-145) mmol/L Potassium 4.9 (3.6-5.0) mmol/L Chloride 111.9 H (98-107) mmol/L Carbon Dioxide 25 (22-30) mmol/L Anion Gap 16 mmol/L BUN 27 H (9-20) mg/dL Creatinine 1.4 (0.8-1.5) mg/dL Estimated GFR 59 ml/min BUN/Creatinine Ratio 19 % Glucose 139 H (75-100) mg/dL Calcium 8.1 L (8.4-10.2) mg/dL Magnesium (1.7-2.3) mg/dL Total Bilirubin 0.50 (0.1-1.2) mg/dL AST 12 (5-40) units/L ALT 10 (7-56) units/L Alkaline Phosphatase 58 (35-129) units/L Total Creatine Kinase (55-170) units/L Troponin T < 0.010 (0.00-0.029) ng/mL Total Protein 6.4 (6.3-8.2) g/dL Albumin 3.5 L (3.9-5) g/dL Albumin/Globulin Ratio 1.2 % Lipase 23 (13-60) units/L Urine Color (Yellow) Urine Turbidity (Clear) Urine pH (5.0-7.0) Ur Specific [place] (1.003-1.030) Urine Protein (Negative) mg/dL Urine Glucose (UA) (Negative) mg/dL Urine Ketones (Negative) mg/dL Urine Blood (Negative) Urine Nitrite (Negative) Urine Bilirubin (Negative) Urine Urobilinogen (<2.0) mg/dL Ur Leukocyte Esterase (Negative) Urine WBC (Auto) (0.0-6.0) /HPF Urine RBC (Auto) (0.0-6.0) /HPF Urine Bacteria (Auto) (Negative) /HPF Urine Mucus /HPF Blood Type Antibody Screen 06/09/19 06/09/19 06/09/19 Range/Units 15:40 15:40 Unknown WBC (4.5-11.0) K/mm3 RBC (3.65-5.03) M/mm3 Hgb (11.8-15.2) gm/dl Hct (35.5-45.6) % MCV (84-94) fl MCH (28-32) pg MCHC (32-34) % RDW (13.2-15.2) % Plt Count (140-440) K/mm3 Lymph % (Auto) (13.4-35.0) % [place] % (Auto) (0.0-7.3) % Eos % (Auto) (0.0-4.3) % Baso % (Auto) (0.0-1.8) % Lymph # (1.2-5.4) K/mm3 [place] # (0.0-0.8) K/mm3 Eos # (0.0-0.4) K/mm3 Baso # (0.0-0.1) K/mm3 Seg Neutrophils % (40.0-70.0) % Seg Neutrophils # (1.8-7.7) K/mm3 PT (12.2-14.9) Sec. INR (0.87-1.13) APTT (24.2-36.6) Sec. Sodium (137-145) mmol/L Potassium (3.6-5.0) mmol/L Chloride (98-107) mmol/L Carbon Dioxide (22-30) mmol/L Anion Gap mmol/L BUN (9-20) mg/dL Creatinine (0.8-1.5) mg/dL Estimated GFR ml/min BUN/Creatinine Ratio % Glucose (75-100) mg/dL Calcium (8.4-10.2) mg/dL Magnesium 2.10 (1.7-2.3) mg/dL Total Bilirubin (0.1-1.2) mg/dL AST (5-40) units/L ALT (7-56) units/L Alkaline Phosphatase (35-129) units/L Total Creatine Kinase 152 (55-170) units/L Troponin T (0.00-0.029) ng/mL Total Protein (6.3-8.2) g/dL Albumin (3.9-5) g/dL Albumin/Globulin Ratio % Lipase (13-60) units/L Urine Color Straw (Yellow) Urine Turbidity Clear (Clear) Urine pH 5.0 (5.0-7.0) Ur Specific [place] 1.010 (1.003-1.030) Urine Protein <15 mg/dl (Negative) mg/dL Urine Glucose (UA) Neg (Negative) mg/dL Urine Ketones Neg (Negative) mg/dL Urine Blood Mod (Negative) Urine Nitrite Neg (Negative) Urine Bilirubin Neg (Negative) Urine Urobilinogen < 2.0 (<2.0) mg/dL Ur Leukocyte Esterase Neg (Negative) Urine WBC (Auto) < 1.0 (0.0-6.0) /HPF Urine RBC (Auto) < 1.0 (0.0-6.0) /HPF Urine Bacteria (Auto) 1+ (Negative) /HPF Urine Mucus Few /HPF Blood Type O POSITIVE Antibody Screen Negative - Radiology Data Radiology results: report reviewed, image reviewed Print Report Referring Physician: CHERELLE ADKINS Patient Name: JUAN F CARDENAS Date of : 1940 Sex: Male Report Date: 2019-06-09 Report Status: Finalized Findings [facility] [address] [place] [address] Cat Scan Report Signed Patient: JUAN F CARDENAS MR#: [id number] : 1940 Acct:[id number] Age/Sex: 78 / M ADM Date: 06/09/19 Loc: ED Attending Dr: Ordering Physician: CHERELLE ADKINS MD Date of Service: 06/09/19 Procedure(s): CT angio abdomen pelvis Accession Number(s): [id number] cc: CHERELLE ADKINS MD CT angio abdomen pelvis INDICATION / CLINICAL INFORMATION: Lower GI bleed.. TECHNIQUE: Axial CT images were obtained after injection of Omnipaque 350, 100 cc IV contrast using CTA protocol. 3 plane MIP / 3D reconstructions were produced. All CT scans at this location are per formed using CT dose reduction for ALARA by means of automated exposure control. COMPARISON: CT abdomen and pelvis 02/18/2016. CT abdomen: The aorta is normal in caliber and contains mild atherosclerotic calcification. The renal arteries and mesenteric vessels are patent. Mild stenosis is seen at the proximal right renal artery. A 5 focal dissection is seen along the undersurface of the distal celiac axis. Mild narrowing is present the origin of the SMA. Evaluation the parenchymal organs demonstrates renal cortical scarring bilaterally and benign-appearing cysts. CTA PELVIS: The iliac vessels are mildly tortuous but widely patent. A mass at the proximal sigmoid colon (series 2, image 166) measures 4.9 x 3.6 cm and likely infiltration into the adjacent soft tissues. A few adjacent lymph nodes all measure less than 1 cm. Noninflamed diverticula are noted. IMPRESSION: 1. Suspe ct primary carcinoma of the proximal sigmoid colon with small adjacent metastatic nodes. 2. Atherosclerotic disease of the aorta and its branches without active bleeding site or high-grade focal stenosis. 3. Renal scarring left greater than right and benign appearing renal cysts. Signer Name: Bora Quiroz MD Signed: 06/09/2019 6:20 PM Workstation Name: [id number] Transcribed By: ES Dictated By: Bora Quiroz MD Electronically Authenticated By: Bora Quiroz MD Signed Date/Time: 06/09/19 2247 Critical care attestation.: If time is entered above; I have spent that time in minutes in the direct care of this critically ill patient, excluding procedure time. ED Disposition Is pt being admited?: Yes
--- NOTE | 2019-06-09 15:09 | XRay Report ---
CHEST 1 VIEW INDICATION: syncope. COMPARISON: 05/30/2019. FINDINGS: Support devices: None. Heart: Normal. Lungs/Pleura: No acute pulmonary or pleural findings. IMPRESSION: 1. No acute findings. Signer Name: Alexander Cabrales MD Signed: 06/09/2019 3:05 PM Workstation Name: [id number]
[2019-06-09 15:25] LABS: Basophils # (Auto) 0.1 K/mm3 (0.0-0.1); Basophils % (Auto) 0.5 % (0.0-1.8); Eosinophils # (Auto) 0.4 K/mm3 (0.0-0.4); Eosinophils % (Auto) 3.6 % (0.0-4.3); Hematocrit 32.3 % (35.5-45.6); Hemoglobin 10.7 gm/dl (11.8-15.2); Lymphocytes # (Auto) 1.3 K/mm3 (1.2-5.4); Lymphocytes % (Auto) 12.5 % (13.4-35.0); Mean Corpuscular HGB Conc 33 % (32-34); Mean Corpuscular Volume 98 fl (84-94); Monocytes # (Auto) 0.7 K/mm3 (0.0-0.8); Monocytes % (Auto) 6.4 % (0.0-7.3); Platelet Count 171 K/mm3 (140-440); Red Cell Distribution Width 13.3 % (13.2-15.2)
[2019-06-09] MEDS ORDERED: NACL 0.9% 250ML 250 ML IV ONE (15:31)
--- NOTE | 2019-06-09 15:32 | Event Note ---
Date of service: 06/09/19 Face to Face: 78-year-old gentleman presenting with dark red blood per rectum. Apparently he was hypotensive in the field. He endorse a complaint of pain to the physician lead recreation assistant evaluating him. On my exam, he is nontender and appears quite comfortable. The physician lead recreation assistant states that his rectal exam shows dark red blood. Hemoglobin, hematocrit decreased when compared to prior values. 2 large-bore IVs ordered, CT angiogram ordered, Protonix 40 mg IV ordered. Patient indicated that he only takes aspirin, and does not take other anticoagulants. Contacted gastroenterology on-call, Dr. Campos, who will follow in consultation. Assuming CT angiogram does not demonstrate large blush patient will be admitted to the medical service for lower GI bleed. This is discussed with the physician lead recreation assistant. This is discussed with the family. Vital Signs 06/09/19 06/09/19 06/09/19 14:17 15:00 15:27 Temperature 98.2 F Pulse Rate 79 80 66 Respiratory 18 14 14 Rate Blood Pressure 107/63 107/63 104/63 [Right] O2 Sat by Pulse 100 100 97 Oximetry 06/09/19 16:03 Temperature Pulse Rate 60 Respiratory Rate Blood Pressure 116/65 [Right] O2 Sat by Pulse Oximetry Lab Results 06/09/19 06/09/19 06/09/19 Range/Units 14:50 14:50 14:50 WBC 10.5 (4.5-11.0) K/mm3 RBC 3.30 L (3.65-5.03) M/mm3 Hgb 10.7 L (11.8-15.2) gm/dl Hct 32.3 L (35.5-45.6) % MCV 98 H (84-94) fl MCH 32 (28-32) pg MCHC 33 (32-34) % RDW 13.3 (13.2-15.2) % Plt Count 171 (140-440) K/mm3 Lymph % (Auto) 12.5 L (13.4-35.0) % [place] % (Auto) 6.4 (0.0-7.3) % Eos % (Auto) 3.6 (0.0-4.3) % Baso % (Auto) 0.5 (0.0-1.8) % Lymph # 1.3 (1.2-5.4) K/mm3 [place] # 0.7 (0.0-0.8) K/mm3 Eos # 0.4 (0.0-0.4) K/mm3 Baso # 0.1 (0.0-0.1) K/mm3 Seg Neutrophils % 77.0 H (40.0-70.0) % Seg Neutrophils # 8.1 H (1.8-7.7) K/mm3 PT 14.3 (12.2-14.9) Sec. INR 1.14 H (0.87-1.13) APTT 31.0 (24.2-36.6) Sec. Sodium 148 H (137-145) mmol/L Potassium 4.9 (3.6-5.0) mmol/L Chloride 111.9 H (98-107) mmol/L Carbon Dioxide 25 (22-30) mmol/L Anion Gap 16 mmol/L BUN 27 H (9-20) mg/dL Creatinine 1.4 (0.8-1.5) mg/dL Estimated GFR 59 ml/min BUN/Creatinine Ratio 19 % Glucose 139 H (75-100) mg/dL Calcium 8.1 L (8.4-10.2) mg/dL Magnesium (1.7-2.3) mg/dL Total Bilirubin 0.50 (0.1-1.2) mg/dL AST 12 (5-40) units/L ALT 10 (7-56) units/L Alkaline Phosphatase 58 (35-129) units/L Total Creatine Kinase (55-170) units/L Troponin T < 0.010 (0.00-0.029) ng/mL Total Protein 6.4 (6.3-8.2) g/dL Albumin 3.5 L (3.9-5) g/dL Albumin/Globulin Ratio 1.2 % Lipase 23 (13-60) units/L Urine Color (Yellow) Urine Turbidity (Clear) Urine pH (5.0-7.0) Ur Specific [place] (1.003-1.030) Urine Protein (Negative) mg/dL Urine Glucose (UA) (Negative) mg/dL Urine Ketones (Negative) mg/dL Urine Blood (Negative) Urine Nitrite (Negative) Urine Bilirubin (Negative) Urine Urobilinogen (<2.0) mg/dL Ur Leukocyte Esterase (Negative) Urine WBC (Auto) (0.0-6.0) /HPF Urine RBC (Auto) (0.0-6.0) /HPF Urine Bacteria (Auto) (Negative) /HPF Urine Mucus /HPF 06/09/19 06/09/19 Range/Units 15:40 Unknown WBC (4.5-11.0) K/mm3 RBC (3.65-5.03) M/mm3 Hgb (11.8-15.2) gm/dl Hct (35.5-45.6) % MCV (84-94) fl MCH (28-32) pg MCHC (32-34) % RDW (13.2-15.2) % Plt Count (140-440) K/mm3 Lymph % (Auto) (13.4-35.0) % [place] % (Auto) (0.0-7.3) % Eos % (Auto) (0.0-4.3) % Baso % (Auto) (0.0-1.8) % Lymph # (1.2-5.4) K/mm3 [place] # (0.0-0.8) K/mm3 Eos # (0.0-0.4) K/mm3 Baso # (0.0-0.1) K/mm3 Seg Neutrophils % (40.0-70.0) % Seg Neutrophils # (1.8-7.7) K/mm3 PT (12.2-14.9) Sec. INR (0.87-1.13) APTT (24.2-36.6) Sec. Sodium (137-145) mmol/L Potassium (3.6-5.0) mmol/L Chloride (98-107) mmol/L Carbon Dioxide (22-30) mmol/L Anion Gap mmol/L BUN (9-20) mg/dL Creatinine (0.8-1.5) mg/dL Estimated GFR ml/min BUN/Creatinine Ratio % Glucose (75-100) mg/dL Calcium (8.4-10.2) mg/dL Magnesium 2.10 (1.7-2.3) mg/dL Total Bilirubin (0.1-1.2) mg/dL AST (5-40) units/L ALT (7-56) units/L Alkaline Phosphatase (35-129) units/L Total Creatine Kinase 152 (55-170) units/L Troponin T (0.00-0.029) ng/mL Total Protein (6.3-8.2) g/dL Albumin (3.9-5) g/dL Albumin/Globulin Ratio % Lipase (13-60) units/L Urine Color Straw (Yellow) Urine Turbidity Clear (Clear) Urine pH 5.0 (5.0-7.0) Ur Specific [place] 1.010 (1.003-1.030) Urine Protein <15 mg/dl (Negative) mg/dL Urine Glucose (UA) Neg (Negative) mg/dL Urine Ketones Neg (Negative) mg/dL Urine Blood Mod (Negative) Urine Nitrite Neg (Negative) Urine Bilirubin Neg (Negative) Urine Urobilinogen < 2.0 (<2.0) mg/dL Ur Leukocyte Esterase Neg (Negative) Urine WBC (Auto) < 1.0 (0.0-6.0) /HPF Urine RBC (Auto) < 1.0 (0.0-6.0) /HPF Urine Bacteria (Auto) 1+ (Negative) /HPF Urine Mucus Few /HPF
[2019-06-09] MEDS ORDERED: PROTONIX IV ONE (15:46)
[2019-06-09 16:02] LABS: INR 1.14 (0.87-1.13)
[2019-06-09 16:04] LABS: Alanine Aminotransferase 10 units/L (7-56); Albumin 3.5 g/dL (3.9-5); BUN/Creatinine Ratio 19; Blood Urea Nitrogen 27 mg/dL (9-20); Calcium 8.1 mg/dL (8.4-10.2); Hemolysis Index 2
[2019-06-09 16:28] LABS: Bacteria,Urine 1+ /HPF (Negative); Bilirubin,Urine NEG (Negative); Blood,Urine MOD (Negative); Color,Urine Straw (Yellow); Mucus,Urine FEW /HPF; Protein,Urine <15 mg/dL mg/dL (Negative); RBC,Urine < 1.0 /HPF (0.0-6.0); Urobilinogen,Urine < 2.0 mg/dL (<2.0); WBC,Urine < 1.0 /HPF (0.0-6.0)
--- NOTE | 2019-06-09 18:24 | Cat Scan Report ---
CT angio abdomen pelvis INDICATION / CLINICAL INFORMATION: Lower GI bleed.. TECHNIQUE: Axial CT images were obtained after injection of Omnipaque 350, 100 cc IV contrast using CTA [employer]. 3 plane MIP / 3D reconstructions were produced. All CT scans at this location are performed using CT dose reduction for ALARA by means of automated exposure control. COMPARISON: CT abdomen and pelvis 02/18/2016. CT abdomen: The aorta is normal in caliber and contains mild atherosclerotic calcification. The renal arteries and mesenteric vessels are patent. Mild stenosis is seen at the proximal right renal artery . A 5 focal dissection is seen along the undersurface of the distal celiac axis. Mild narrowing is pr esent the origin of the SMA. Evaluation the parenchymal organs demonstrates renal cortical scarring bilaterally and benign-appeari ng cysts. CTA PELVIS: The iliac vessels are mildly tortuous but widely patent. A mass at the proximal sigmoid c olon (series 2, image 166) measures 4.9 x 3.6 cm and likely infiltration into the adjacent soft tissu es. A few adjacent lymph nodes all measure less than 1 cm. Noninflamed diverticula are noted. IMPRESSION: 1. 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 2. Atherosclerotic disease of the aorta and its branches without active bleeding site or high-grade f ocal stenosis. 3. Renal scarring left greater than right and benign appearing renal cysts. Signer Name: Bora Quiroz MD Signed: 06/09/2019 6:20 PM Workstation Name: [id number]
[2019-06-09] MEDS ORDERED: SODIUM CHLORIDE FLUSH SYRINGE 10 ML IV PRN (20:23)
[2019-06-09] MEDS ORDERED: TYLENOL PO PRN (20:23)
[2019-06-09] MEDS ORDERED: MORPHINE IV PRN (20:23)
[2019-06-09] MEDS ORDERED: ZOFRAN IV PRN (20:23)
[2019-06-09] MEDS ORDERED: ANTIVERT PO PRN (20:26)
[2019-06-09] MEDS ORDERED: NACL 0.9% 250ML 250 ML ONE (21:10)
[2019-06-09] MEDS ORDERED: D50W (25GM) Syringe IV PRN (21:29)
--- NOTE | 2019-06-09 21:29 | History and Physical Report ---
<KHANH RUIZ - Last Filed: 06/09/19 22:09> History of Present Illness Date of examination: 06/09/19 Date of admission: 06/09/19 20:23 Chief complaint: Dark red stools and near syncopal episode History of present illness: 78-year-old -[place] male with history of CHF with EF 35-45%, CAD status post PCI 4 (most recent 11/13/17), NH 2, HTN, HLD, DM, GI bleed, diverticulitis, asthma, and questionable history of PE who presents to [facility] ED with complaints large amounts of dark bloody stool 3 and near-syncopal event. Patient's family is present at bedside and has assisted with providing history. Patient states that he had a total of 3 episodes of large dark bloody stools earlier today. The large bloody stools was accompanied by diffuse abdominal pain, which he rates 5/10 and describes as a cramping feeling. Later on in the day he went out with his sister and while walking in he began to feel dizzy and his physician became blurred. He sat down in the car and per his sister's report near-syncopal event and EMS was called. While in the ED patient had 2 more episodes of large bloody stools. He states that his blurred vision has since resolved and he feels fine. Presently patient denies being on systemic anti-coagulation. He states that he only takes aspirin 81 mg daily. Denies: n/v/d, fever, headache, loss consciousness, shortness of breath, or chest pain Review of medical records shows patient was previously admitted on 05/30/19 with complaints of chest pain and near syncopal episode. He was seen by cardiology, charted on oral nitrates, and advised to follow up outpatient. Past History Past Medical History: acute NH (x2), CAD (s/p PCI x4), diabetes, heart failure (EF 35-45%), hypertension, other (asthma, questionable history of PE, GI bleed, diverticulitis) Past Surgical History: Other ( PCI 4 (most recent 11/13/17)) Social history: Family history: no significant family history Medications and Allergies Allergies Allergy/AdvReac Type Severity Reaction Status Date / Time No Known Allergies Allergy Unverified 02/18/16 09:53 Home Medications Medication Instructions Recorded Confirmed Last Taken Type AtorvaSTATin [Lipitor] 40 mg PO DAILY 02/18/16 06/09/19 06/08/19 History Ranolazine ER [Ranexa ER] 1 tab PO BID 04/07/19 06/09/19 06/08/19 History Aspirin EC [Halfprin EC] 81 mg PO DAILY 05/30/19 06/09/19 06/08/19 History Brimonidine Tartrate [Alphagan P 1 drop OU TID 05/30/19 06/09/19 06/08/19 History 0.1%] Lisinopril [Zestril TAB] 5 mg PO QDAY #30 tablet 06/02/19 06/09/19 06/08/19 Rx Meclizine [Antivert] 25 mg PO TID PRN 06/09/19 06/09/19 06/08/19 History Active Meds: Active Medications Acetaminophen (Tylenol) 650 mg PO Q4H PRN PRN Reason: Pain MILD(1-3)/Fever >100.5/TO Aspirin (Halfprin Ec) 81 mg PO DAILY [facility] Atorvastatin Calcium (Lipitor) 40 mg PO DAILY [facility] Lisinopril (Zestril) 5 mg PO QDAY [facility] Meclizine HCl (Antivert) 25 mg PO TID PRN PRN Reason: Vertigo Miscellaneous Medication (Brimonidine Tartrate [Alphagan P 0.1%]) 1 drop OU TID [facility] Morphine Sulfate (Morphine) 2 mg IV Q4H PRN PRN Reason: Pain, Moderate (4-6) Ondansetron HCl (Zofran) 4 mg IV Q6H PRN PRN Reason: Nausea And Vomiting Ranolazine (Ranexa Er) 500 mg PO BID ROSIO Sodium Chloride (Sodium Chloride Flush Syringe 10 Ml) 10 ml IV BID ROSIO Sodium Chloride (Sodium Chloride Flush Syringe 10 Ml) 10 ml IV PRN PRN PRN Reason: LINE FLUSH Review of Systems All systems: negative Eyes: bilateral: blurred vision (has since resolved) Gastrointestinal: abdominal pain, melena Exam - Physical Exam Narrative exam: General appearance: Present: No acute distress, alert and oriented, older adult male - EENT Eyes: Present: PERRL, EOM intact ENT: hearing intact, missing teeth - Neck Neck: Present: supple, normal ROM - Respiratory Respiratory effort: Non-labored Respiratory: bilateral: CTA with diminished bases bilaterally - Cardiovascular Heart rate:87 (bpm) Rhythm:SR Heart Sounds: Present: S1, S2. - Extremities Extremities: no ischemia, pulses intact - Peripheral Assessment Peripheral Pulses: within normal limits - Abdominal General gastrointestinal: soft, non-tender, normal bowel sounds, heme positive - Integumentary Integumentary: Present: warm, dry - Musculoskeletal Musculoskeletal: generalized weakness, able to move all extremities -Neurological Neurological: CN II-XII grossly intact - Psychiatric Psychiatric: cooperative - Constitutional Vitals: Temp Pulse Resp BP Pulse Ox 98.2 F 87 25 H 130/70 98 06/09/19 14:17 06/09/19 19:00 06/09/19 19:00 06/09/19 19:00 06/09/19 19:00 Results - Labs CBC & Chem 7: 06/09/19 21:56 06/09/19 14:50 Labs: Laboratory Last Values WBC 10.5 K/mm3 (4.5-11.0) 06/09/19 14:50 RBC 3.30 M/mm3 (3.65-5.03) L 06/09/19 14:50 Hgb 10.7 gm/dl (11.8-15.2) L 06/09/19 14:50 Hct 32.3 % (35.5-45.6) L 06/09/19 14:50 MCV 98 fl (84-94) H 06/09/19 14:50 MCH 32 pg (28-32) 06/09/19 14:50 MCHC 33 % (32-34) 06/09/19 14:50 RDW 13.3 % (13.2-15.2) 06/09/19 14:50 Plt Count 171 K/mm3 (140-440) 06/09/19 14:50 Lymph % (Auto) 12.5 % (13.4-35.0) L 06/09/19 14:50 [place] % (Auto) 6.4 % (0.0-7.3) 06/09/19 14:50 Eos % (Auto) 3.6 % (0.0-4.3) 06/09/19 14:50 Baso % (Auto) 0.5 % (0.0-1.8) 06/09/19 14:50 Lymph # 1.3 K/mm3 (1.2-5.4) 06/09/19 14:50 [place] # 0.7 K/mm3 (0.0-0.8) 06/09/19 14:50 Eos # 0.4 K/mm3 (0.0-0.4) 06/09/19 14:50 Baso # 0.1 K/mm3 (0.0-0.1) 06/09/19 14:50 Seg Neutrophils % 77.0 % (40.0-70.0) H 06/09/19 14:50 Seg Neutrophils # 8.1 K/mm3 (1.8-7.7) H 06/09/19 14:50 PT 14.3 Sec. (12.2-14.9) 06/09/19 14:50 INR 1.14 (0.87-1.13) H 06/09/19 14:50 APTT 31.0 Sec. (24.2-36.6) 06/09/19 14:50 Sodium 148 mmol/L (137-145) H 06/09/19 14:50 Potassium 4.9 mmol/L (3.6-5.0) 06/09/19 14:50 Chloride 111.9 mmol/L (98-107) H 06/09/19 14:50 Carbon Dioxide 25 mmol/L (22-30) 06/09/19 14:50 Anion Gap 16 mmol/L 06/09/19 14:50 BUN 27 mg/dL (9-20) H 06/09/19 14:50 Creatinine 1.4 mg/dL (0.8-1.5) 06/09/19 14:50 Estimated GFR 59 ml/min 06/09/19 14:50 BUN/Creatinine Ratio 19 % 06/09/19 14:50 Glucose 139 mg/dL (75-100) H 06/09/19 14:50 Calcium 8.1 mg/dL (8.4-10.2) L 06/09/19 14:50 Magnesium 2.10 mg/dL (1.7-2.3) 06/09/19 15:40 Total Bilirubin 0.50 mg/dL (0.1-1.2) 06/09/19 14:50 AST 12 units/L (5-40) 06/09/19 14:50 ALT 10 units/L (7-56) 06/09/19 14:50 Alkaline Phosphatase 58 units/L (35-129) 06/09/19 14:50 Total Creatine Kinase 152 units/L (55-170) 06/09/19 15:40 Troponin T < 0.010 ng/mL (0.00-0.029) 06/09/19 14:50 Total Protein 6.4 g/dL (6.3-8.2) 06/09/19 14:50 Albumin 3.5 g/dL (3.9-5) L 06/09/19 14:50 Albumin/Globulin Ratio 1.2 % 06/09/19 14:50 Lipase 23 units/L (13-60) 06/09/19 14:50 Urine Color Straw (Yellow) 06/09/19 Unknown Urine Turbidity Clear (Clear) 06/09/19 Unknown Urine pH 5.0 (5.0-7.0) 06/09/19 Unknown Ur Specific [place] 1.010 (1.003-1.030) 06/09/19 Unknown Urine Protein <15 mg/dl mg/dL (Negative) 06/09/19 Unknown Urine Glucose (UA) Neg mg/dL (Negative) 06/09/19 Unknown Urine Ketones Neg mg/dL (Negative) 06/09/19 Unknown Urine Blood Mod (Negative) 06/09/19 Unknown Urine Nitrite Neg (Negative) 06/09/19 Unknown Urine Bilirubin Neg (Negative) 06/09/19 Unknown Urine Urobilinogen < 2.0 mg/dL (<2.0) 06/09/19 Unknown Ur Leukocyte Esterase Neg (Negative) 06/09/19 Unknown Urine WBC (Auto) < 1.0 /HPF (0.0-6.0) 06/09/19 Unknown Urine RBC (Auto) < 1.0 /HPF (0.0-6.0) 06/09/19 Unknown Urine Bacteria (Auto) 1+ /HPF (Negative) 06/09/19 Unknown Urine Mucus Few /HPF 06/09/19 Unknown Blood Type O POSITIVE 06/09/19 15:40 Antibody Screen Negative 06/09/19 15:40 - Imaging and Cardiology Imaging and Cardiology: CT angio Abdomen/Pelvis: CT abdomen: The aorta is normal in caliber and contains mild atherosclerotic calcification. The renal arteries and mesenteric vessels are patent. Mild st enosis is seen at the proximal right renal artery. A 5 focal dissection is seen along the undersurface of the distal celiac axis. Mild narrowing is present the origin of the SMA. Evaluation the parenchymal organs demonstrates renal cortical scarring bilaterally and benign- appearing cysts. CTA PELVIS: The iliac vessels are mildly tortuous but widely patent. A mass at the proximal sigmoid colon (series 2, image 166) measures 4.9 x 3.6 cm and likely infiltration into the adjacent soft tissues. A few adjacent lymph nodes all measure less than 1 cm. Noninflamed diverticula are noted. IMPRESSION: 1. 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 2. Atherosclerotic disease of the aorta and its branches without active bleeding site or high-grade focal stenosis. 3. Renal scarring left greater than right and benign appearing renal cysts. CXR: FINDINGS: Support devices: None. Heart: Normal. Lungs/Pleura: No acute pulmonary or pleural findings. IMPRESSION: 1. No acute findings. Assessment and Plan Assessment and plan: 78-year-old -[place] male with history of CHF with EF 35-45%, CAD status post PCI 4 (most recent 11/13/17), NH 2, HTN, HLD, DM, GI bleed, diverticulitis, asthma, and questionable history of PE who presents to [facility] ED with complaints large amount of dark bloody stool 3 and near-syncopal event. 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 Atherosclerotic disease of the aorta and its branches without active bleeding site or high-grade focal stenosis. Renal scarring left greater than right and benign appearing renal cysts. -Hx GI Bleed and diverticulitis -Total of 5 episodes of large dark red stool -Heme positive -On IV Protonix twice a day -GI consult and following Anemia of chronic disease -Hemoglobin on admission 10.7 (down from 13.9 on 05/31/19) -Active lower GI bleed -Continue to monitor hemoglobin -Transfuse as needed -Hematology consulted DM2 -POC BG monitoring -SSI coverage prn HTN -Monitor BP -Resume home antihypertensive meds Near-syncopal episode -Pt Denies loss of consciousness -Per family pt "almost passed out" while sitting in car -VL carotid duplex on 06/02/19 was negative: No hemodynamically significant stenosis by NASCET criteria. DVT PPX -SCD's -Systemic anticoagulation due to active GI bleed Advance Directives: No VTE prophylaxis?: Mechanical Plan of care discussed with patient/family: Yes <LUCI SOLORIO - Last Filed: 06/10/19 05:21> History of Present Illness Date of admission: 06/09/19 20:23 Medications and Allergies Active Meds: Active Medications Acetaminophen (Tylenol) 650 mg PO Q4H PRN PRN Reason: Pain MILD(1-3)/Fever >100.5/TO Aspirin (Halfprin Ec) 81 mg PO DAILY [facility] Atorvastatin Calcium (Lipitor) 40 mg PO DAILY [facility] Dextrose (D50w (25gm) Syringe) 0 ml IV Q30MIN PRN PRN Reason: Hypoglycemia Insulin Human Lispro (Humalog) 0 unit SUB-Q Q6HR [facility]; Protocol Last Admin: 06/10/19 00:25 Dose: Not Given Documented by: Lisinopril (Zestril) 5 mg PO QDAY [facility] Meclizine HCl (Antivert) 25 mg PO TID PRN PRN Reason: Vertigo Miscellaneous Medication (Brimonidine Tartrate [Alphagan P 0.1%]) 1 drop OU TID [facility] Morphine Sulfate (Morphine) 2 mg IV Q4H PRN PRN Reason: Pain, Moderate (4-6) Ondansetron HCl (Zofran) 4 mg IV Q6H PRN PRN Reason: Nausea And Vomiting Pantoprazole Sodium (Protonix) 40 mg IV BID [facility] Last Admin: 06/09/19 22:18 Dose: 40 mg Documented by: Ranolazine (Ranexa Er) 500 mg PO BID [facility] Last Admin: 06/09/19 22:19 Dose: 500 mg Documented by: Sodium Chloride (Sodium Chloride Flush Syringe 10 Ml) 10 ml IV BID [facility] Last Admin: 06/09/19 22:18 Dose: 10 ml Documented by: Sodium Chloride (Sodium Chloride Flush Syringe 10 Ml) 10 ml IV PRN PRN PRN Reason: LINE FLUSH Exam - Constitutional Vitals: Temp Pulse Resp BP Pulse Ox 97.7 F 72 18 130/68 99 06/09/19 22:00 06/09/19 22:00 06/10/19 00:18 06/09/19 22:00 06/09/19 22:00 Results - Labs CBC & Chem 7: 06/09/19 21:56 06/09/19 14:50 Labs: Laboratory Last Values WBC 10.5 K/mm3 (4.5-11.0) 06/09/19 14:50 RBC 3.30 M/mm3 (3.65-5.03) L 06/09/19 14:50 Hgb 10.1 gm/dl (11.8-15.2) L 06/09/19 21:56 Hct 29.6 % (35.5-45.6) L 06/09/19 21:56 MCV 98 fl (84-94) H 06/09/19 14:50 MCH 32 pg (28-32) 06/09/19 14:50 MCHC 33 % (32-34) 06/09/19 14:50 RDW 13.3 % (13.2-15.2) 06/09/19 14:50 Plt Count 171 K/mm3 (140-440) 06/09/19 14:50 Lymph % (Auto) 12.5 % (13.4-35.0) L 06/09/19 14:50 [place] % (Auto) 6.4 % (0.0-7.3) 06/09/19 14:50 Eos % (Auto) 3.6 % (0.0-4.3) 06/09/19 14:50 Baso % (Auto) 0.5 % (0.0-1.8) 06/09/19 14:50 Lymph # 1.3 K/mm3 (1.2-5.4) 06/09/19 14:50 [place] # 0.7 K/mm3 (0.0-0.8) 06/09/19 14:50 Eos # 0.4 K/mm3 (0.0-0.4) 06/09/19 14:50 Baso # 0.1 K/mm3 (0.0-0.1) 06/09/19 14:50 Seg Neutrophils % 77.0 % (40.0-70.0) H 06/09/19 14:50 Seg Neutrophils # 8.1 K/mm3 (1.8-7.7) H 06/09/19 14:50 PT 14.3 Sec. (12.2-14.9) 06/09/19 14:50 INR 1.14 (0.87-1.13) H 06/09/19 14:50 APTT 31.0 Sec. (24.2-36.6) 06/09/19 14:50 Sodium 148 mmol/L (137-145) H 06/09/19 14:50 Potassium 4.9 mmol/L (3.6-5.0) 06/09/19 14:50 Chloride 111.9 mmol/L (98-107) H 06/09/19 14:50 Carbon Dioxide 25 mmol/L (22-30) 06/09/19 14:50 Anion Gap 16 mmol/L 06/09/19 14:50 BUN 27 mg/dL (9-20) H 06/09/19 14:50 Creatinine 1.4 mg/dL (0.8-1.5) 06/09/19 14:50 Estimated GFR 59 ml/min 06/09/19 14:50 BUN/Creatinine Ratio 19 % 06/09/19 14:50 Glucose 139 mg/dL (75-100) H 06/09/19 14:50 POC Glucose 91 (70-105) 06/09/19 22:11 Calcium 8.1 mg/dL (8.4-10.2) L 06/09/19 14:50 Magnesium 2.10 mg/dL (1.7-2.3) 06/09/19 15:40 Total Bilirubin 0.50 mg/dL (0.1-1.2) 06/09/19 14:50 AST 12 units/L (5-40) 06/09/19 14:50 ALT 10 units/L (7-56) 06/09/19 14:50 Alkaline Phosphatase 58 units/L (35-129) 06/09/19 14:50 Total Creatine Kinase 152 units/L (55-170) 06/09/19 15:40 Troponin T < 0.010 ng/mL (0.00-0.029) 06/09/19 14:50 Total Protein 6.4 g/dL (6.3-8.2) 06/09/19 14:50 Albumin 3.5 g/dL (3.9-5) L 06/09/19 14:50 Albumin/Globulin Ratio 1.2 % 06/09/19 14:50 Lipase 23 units/L (13-60) 06/09/19 14:50 Urine Color Straw (Yellow) 06/09/19 Unknown Urine Turbidity Clear (Clear) 06/09/19 Unknown Urine pH 5.0 (5.0-7.0) 06/09/19 Unknown Ur Specific [place] 1.010 (1.003-1.030) 06/09/19 Unknown Urine Protein <15 mg/dl mg/dL (Negative) 06/09/19 Unknown Urine Glucose (UA) Neg mg/dL (Negative) 06/09/19 Unknown Urine Ketones Neg mg/dL (Negative) 06/09/19 Unknown Urine Blood Mod (Negative) 06/09/19 Unknown Urine Nitrite Neg (Negative) 06/09/19 Unknown Urine Bilirubin Neg (Negative) 06/09/19 Unknown Urine Urobilinogen < 2.0 mg/dL (<2.0) 06/09/19 Unknown Ur Leukocyte Esterase Neg (Negative) 06/09/19 Unknown Urine WBC (Auto) < 1.0 /HPF (0.0-6.0) 06/09/19 Unknown Urine RBC (Auto) < 1.0 /HPF (0.0-6.0) 06/09/19 Unknown Urine Bacteria (Auto) 1+ /HPF (Negative) 06/09/19 Unknown Urine Mucus Few /HPF 06/09/19 Unknown Blood Type O POSITIVE 06/09/19 15:40 Antibody Screen Negative 06/09/19 15:40 Assessment and Plan Assessment and plan: 78-year-old man with a history of hypertension, diabetes, CHF, coronary artery disease hyperlipidemia, diverticulitis was brought to the emergency room because he had 3 episodes of blood per rectum at home and 2 episodes here in the emergency room. Also had abdominal pain with the bleeding which she described as a dull pain in the epigastric area, intermittent, intensity 5/10, no radiation. There is no further blood per rectum, he admits to weight loss but he is unclear how much. A CT scan of the abdomen shows metastatic colon cancer. Agree with GI/Oncology consult, serial hemoglobin, hold aspirin and antihypertensive, patient with relative hypotension to normotension. encourage oral intak for mild hypernatremia, patient with CHF.
[2019-06-09 22:07] LABS: Hematocrit 29.6 % (35.5-45.6); Hemoglobin 10.1 gm/dl (11.8-15.2)
[2019-06-09] MEDS: PROTONIX IV SCH (22:18)
[2019-06-09] MEDS: SODIUM CHLORIDE FLUSH SYRINGE 10 ML IV SCH (22:18)
[2019-06-09] MEDS: RANEXA ER PO SCH (22:19)
[2019-06-10] MEDS: HumaLOG SUB-Q SCH ×4 (00:25→17:37)
[2019-06-10 05:51] LABS: Basophils % (Auto) 0.6 % (0.0-1.8); Eosinophils # (Auto) 0.4 K/mm3 (0.0-0.4); Eosinophils % (Auto) 6.2 % (0.0-4.3); Hematocrit 30.1 % (35.5-45.6); Hemoglobin 10.1 gm/dl (11.8-15.2); Lymphocytes # (Auto) 1.6 K/mm3 (1.2-5.4); Lymphocytes % (Auto) 26.8 % (13.4-35.0); Mean Corpuscular HGB Conc 34 % (32-34); Mean Corpuscular Volume 96 fl (84-94); Monocytes # (Auto) 0.5 K/mm3 (0.0-0.8); Monocytes % (Auto) 8.6 % (0.0-7.3); Platelet Count 151 K/mm3 (140-440); Red Blood Count 3.12 M/mm3 (3.65-5.03); Red Cell Distribution Width 13.4 % (13.2-15.2)
[2019-06-10 06:17] LABS: Calcium 8.3 mg/dL (8.4-10.2)
[2019-06-10] MEDS: RANEXA ER PO SCH ×2 (09:50→21:46)
[2019-06-10] MEDS: PROTONIX IV SCH ×2 (09:50→21:46)
[2019-06-10] MEDS: SODIUM CHLORIDE FLUSH SYRINGE 10 ML IV SCH (09:50)
[2019-06-10] MEDS ORDERED: HALFPRIN EC PO SCH (10:00)
[2019-06-10] MEDS ORDERED: ZESTRIL PO SCH (10:00)
--- NOTE | 2019-06-10 10:38 | Gastroenterology Consultation ---
History of Present Illness - Reason for Consult Consult date: 06/10/19 GI bleed Requesting physician: CHERELLE JONES - History of Present Illness Patient is a 78 y/o male with PMH of HTN, CHF, NC/CAD (s/p PCI x 4), HLD, DM, GI bleed, asthma, and kidney stones who presented to ED with c/o rectal bleeding with associated syncopal episode and diffuse lower abdominal pain described as cramping to which GI has been consulted. Upon admission, abd/pelvic CTA showed suspicion for proximal sigmoid colon mass with small adjacent metastatic nodes (along with atherosclerotic disease and renal scarring/cysts). This morning patient was resting in bed w/o acute distress and family at bedside. He reports acute onset of rectal bleeding yesterday x 3 episodes with a large amount of dark red/maroon bloody stool. No further active signs of bleeding this am, hematemesis or melana. Abd pain now improved. Denies fever, CP, SOB, wt loss, dizziness, diarrhea, or constipation. Takes daily ASA at home but no other NSAIDs or blood thinning medications. Patient is previously known to our service from a prior episode of GI bleeding in 2013 thought to be diverticular in nature with EGD/colonoscopy at that time showing small non-bleeding AVMs in stomach, small hiatal hernia, severe diverticulosis throughout entire colon with old blood, colon polyp, and internal hemorrhoids. He had a follow up colonoscopy for continued anemia in 2016 with polyps removed (path precancerous), and again showing diverticulosis and hemorrhoids (tortuous colon). No known Fhx of colon CA. Past History Past Medical History: other (as per HPI) Past Surgical History: Other ( PCI 4 (most recent 11/13/17), lithotripsy, hernia repair) Social history: . denies: smoking, alcohol abuse Family history: no significant family history Medications and Allergies Allergies Allergy/AdvReac Type Severity Reaction Status Date / Time No Known Allergies Allergy Unverified 02/18/16 09:53 Home Medications Medication Instructions Recorded Confirmed Last Taken Type AtorvaSTATin [Lipitor] 40 mg PO DAILY 02/18/16 06/09/19 06/08/19 History Ranolazine ER [Ranexa ER] 1 tab PO BID 04/07/19 06/09/19 06/08/19 History Aspirin EC [Halfprin EC] 81 mg PO DAILY 05/30/19 06/09/19 06/08/19 History Brimonidine Tartrate [Alphagan P 1 drop OU TID 05/30/19 06/09/19 06/08/19 History 0.1%] Lisinopril [Zestril TAB] 5 mg PO QDAY #30 tablet 06/02/19 06/09/19 06/08/19 Rx Meclizine [Antivert] 25 mg PO TID PRN 06/09/19 06/09/19 06/08/19 History Active Meds: Active Medications Acetaminophen (Tylenol) 650 mg PO Q4H PRN PRN Reason: Pain MILD(1-3)/Fever >100.5/TO Atorvastatin Calcium (Lipitor) 40 mg PO DAILY [facility] TO [facility] Last Admin: 06/10/19 09:50 Dose: 40 mg Documented by: Dextrose (D50w (25gm) Syringe) 0 ml IV Q30MIN PRN PRN Reason: Hypoglycemia Insulin Human Lispro (Humalog) 0 unit SUB-Q Q6HR [facility]; Protocol Last Admin: 06/10/19 06:30 Dose: Not Given Documented by: Meclizine HCl (Antivert) 25 mg PO TID PRN PRN Reason: Vertigo Miscellaneous Medication (Brimonidine Tartrate [Alphagan P 0.1%]) 1 drop OU TID [facility] Morphine Sulfate (Morphine) 2 mg IV Q4H PRN PRN Reason: Pain, Moderate (4-6) Ondansetron HCl (Zofran) 4 mg IV Q6H PRN PRN Reason: Nausea And Vomiting Pantoprazole Sodium (Protonix) 40 mg IV BID [facility] Last Admin: 06/10/19 09:50 Dose: 40 mg Documented by: Ranolazine (Ranexa Er) 500 mg PO BID [facility] Last Admin: 06/10/19 09:50 Dose: 500 mg Documented by: Sodium Chloride (Sodium Chloride Flush Syringe 10 Ml) 10 ml IV BID [facility] Last Admin: 06/10/19 09:50 Dose: 10 ml Documented by: Sodium Chloride (Sodium Chloride Flush Syringe 10 Ml) 10 ml IV PRN PRN PRN Reason: LINE FLUSH medications reviewed/updated as required Review of Systems - Review of Systems All systems: negative Cardiovascular: syncope Gastrointestinal: abdominal pain (cramping), other (rectal bleeding w/ dark red/maroon blood), no nausea, no vomiting, no hematemesis, no melena Exam - Constitutional Vital Signs: Temp Pulse Resp BP Pulse Ox 98.0 F 79 20 133/85 98 06/10/19 07:43 06/10/19 07:43 06/10/19 07:43 06/10/19 07:43 06/10/19 07:43 General appearance: no acute distress - EENT Eyes: PERRL, EOM intact ENT: hearing intact - Respiratory Respiratory effort: normal - Cardiovascular Rhythm: regular - Gastrointestinal General gastrointestinal: Present: soft, non-tender, non-distended, normal bowel sounds - Neurologic Neurological: alert and oriented x3 - Labs CBC & Chem 7: 06/10/19 05:14 06/10/19 05:14 Lab Results: Laboratory Results - last 24 hr 06/09/19 06/09/19 06/09/19 14:50 14:50 14:50 WBC 10.5 RBC 3.30 L Hgb 10.7 L Hct 32.3 L MCV 98 H MCH 32 MCHC 33 RDW 13.3 Plt Count 171 Lymph % (Auto) 12.5 L [place] % (Auto) 6.4 Eos % (Auto) 3.6 Baso % (Auto) 0.5 Lymph # 1.3 [place] # 0.7 Eos # 0.4 Baso # 0.1 Seg Neutrophils % 77.0 H Seg Neutrophils # 8.1 H PT 14.3 INR 1.14 H APTT 31.0 Sodium 148 H Potassium 4.9 Chloride 111.9 H Carbon Dioxide 25 Anion Gap 16 BUN 27 H Creatinine 1.4 Estimated GFR 59 BUN/Creatinine Ratio 19 Glucose 139 H POC Glucose Calcium 8.1 L Magnesium Total Bilirubin 0.50 AST 12 ALT 10 Alkaline Phosphatase 58 Total Creatine Kinase Troponin T < 0.010 Total Protein 6.4 Albumin 3.5 L Albumin/Globulin Ratio 1.2 Lipase 23 Urine Color Urine Turbidity Urine pH Ur Specific [place] Urine Protein Urine Glucose (UA) Urine Ketones Urine Blood Urine Nitrite Urine Bilirubin Urine Urobilinogen Ur Leukocyte Esterase Urine WBC (Auto) Urine RBC (Auto) Urine Bacteria (Auto) Urine Mucus Blood Type Antibody Screen 06/09/19 06/09/19 06/09/19 15:40 15:40 21:56 WBC RBC Hgb 10.1 L Hct 29.6 L MCV MCH MCHC RDW Plt Count Lymph % (Auto) [place] % (Auto) Eos % (Auto) Baso % (Auto) Lymph # [place] # Eos # Baso # Seg Neutrophils % Seg Neutrophils # PT INR APTT Sodium Potassium Chloride Carbon Dioxide Anion Gap BUN Creatinine Estimated GFR BUN/Creatinine Ratio Glucose POC Glucose Calcium Magnesium 2.10 Total Bilirubin AST ALT Alkaline Phosphatase Total Creatine Kinase 152 Troponin T Total Protein Albumin Albumin/Globulin Ratio Lipase Urine Color Urine Turbidity Urine pH Ur Specific [place] Urine Protein Urine Glucose (UA) Urine Ketones Urine Blood Urine Nitrite Urine Bilirubin Urine Urobilinogen Ur Leukocyte Esterase Urine WBC (Auto) Urine RBC (Auto) Urine Bacteria (Auto) Urine Mucus Blood Type O POSITIVE Antibody Screen Negative 06/09/19 06/09/19 06/10/19 22:11 Unknown 05:14 WBC 6.0 RBC 3.12 L Hgb 10.1 L Hct 30.1 L MCV 96 H MCH 33 H MCHC 34 RDW 13.4 Plt Count 151 Lymph % (Auto) 26.8 [place] % (Auto) 8.6 H Eos % (Auto) 6.2 H Baso % (Auto) 0.6 Lymph # 1.6 [place] # 0.5 Eos # 0.4 Baso # 0.0 Seg Neutrophils % 57.8 Seg Neutrophils # 3.5 PT INR APTT Sodium Potassium Chloride Carbon Dioxide Anion Gap BUN Creatinine Estimated GFR BUN/Creatinine Ratio Glucose POC Glucose 91 Calcium Magnesium Total Bilirubin AST ALT Alkaline Phosphatase Total Creatine Kinase Troponin T Total Protein Albumin Albumin/Globulin Ratio Lipase Urine Color Straw Urine Turbidity Clear Urine pH 5.0 Ur Specific [place] 1.010 Urine Protein <15 mg/dl Urine Glucose (UA) Neg Urine Ketones Neg Urine Blood Mod Urine Nitrite Neg Urine Bilirubin Neg Urine Urobilinogen < 2.0 Ur Leukocyte Esterase Neg Urine WBC (Auto) < 1.0 Urine RBC (Auto) < 1.0 Urine Bacteria (Auto) 1+ Urine Mucus Few Blood Type Antibody Screen 06/10/19 06/10/19 05:14 06:08 WBC RBC Hgb Hct MCV MCH MCHC RDW Plt Count Lymph % (Auto) [place] % (Auto) Eos % (Auto) Baso % (Auto) Lymph # [place] # Eos # Baso # Seg Neutrophils % Seg Neutrophils # PT INR APTT Sodium 146 H Potassium 4.2 Chloride 110.7 H Carbon Dioxide 21 L Anion Gap 19 BUN 26 H Creatinine 1.4 Estimated GFR 59 BUN/Creatinine Ratio 19 Glucose 94 POC Glucose 103 Calcium 8.3 L Magnesium Total Bilirubin AST ALT Alkaline Phosphatase Total Creatine Kinase Troponin T Total Protein Albumin Albumin/Globulin Ratio Lipase Urine Color Urine Turbidity Urine pH Ur Specific [place] Urine Protein Urine Glucose (UA) Urine Ketones Urine Blood Urine Nitrite Urine Bilirubin Urine Urobilinogen Ur Leukocyte Esterase Urine WBC (Auto) Urine RBC (Auto) Urine Bacteria (Auto) Urine Mucus Blood Type Antibody Screen Assessment and Plan 1.GI bleed/anemia 2.abnormal CT (colon mass?) -plt WNL, INR 1.14, LFTs and WBC WNL -H/H 10.1/30.1-stable -continue to monitor H/H and transfuse as needed- hold blood thinning medications -patient reports acute onset of rectal bleeding x 3 episodes yesterday with a large amount of dark red/maroon stool with associated lower abd cramping and syncope. No hematemesis, melena, or further active signs of bleeding this am. Currently HD stable. 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 (of note CT 2016 showed thickened sigmoid in area of severe diverticulosis seen during colonoscopy) -patient has a hx of prior GI bleeding with similar symptoms in 2016 thought to be diverticular in nature with EGD/colon at that time showing small non-bleeding AVMs in stomach, small hiatal hernia, severe diverticulosis throughout entire colon with old blood, colon polyp, and internal hemorrhoids -He underwent follow up colonoscopy in 2017 for persistent anemia with polyps removed (path precancerous), and again showing diverticulosis and hemorrhoids (tortuous colon) -etiology unclear-likely lower source (diverticular vs mass) vs other -will schedule for repeat colon +/-EGD tomorrow for further evaluation -okay for clear liquids today then NPO after MN -continue PPI and supportive care -will follow
[2019-06-10] MEDS ORDERED: GOLYTELY PO NR (11:30)
--- NOTE | 2019-06-10 14:37 | Progress Note ---
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 Atherosclerotic disease of the aorta and its branches without active bleeding site or high-grade focal stenosis. Renal scarring left greater than right and benign appearing renal cysts. -Hx GI Bleed and diverticulitis -Total of 5 episodes of large dark red stool -Heme positive -On IV Protonix twice a day -GI consult and will do colonoscopy tomorrow -Hematology consult Anemia due to acute blood loss -Hemoglobin on admission 10.7 (down from 13.9 on 05/31/19) -Active lower GI bleed -Continue to monitor hemoglobin and hematocrit -Transfuse as needed DM2 -POC BG monitoring -SSI coverage prn HTN -Monitor BP -Resume home antihypertensive meds Near-syncopal episode -Pt Denies loss of consciousness -Per family pt "almost passed out" while sitting in car - carotid duplex on 06/02/19 was negative: No hemodynamically significant stenosis by NASCET criteria. DVT PPX -SCD's -Systemic anticoagulation due to active GI bleed Advance Directives: No VTE prophylaxis?: Mechanical Plan of care discussed with patient/family: Yes History Interval history: Patient was seen and vomiting this morning, she is alert and oriented. No rectal bleeding since his morning. patient desaturated when he work with PT. Hospitalist Physical - Physical exam Narrative exam: Not in cardiopulmonary distress. The patient appeared well nourished and normally developed. Vital signs as documented. Head exam is unremarkable. No scleral icterus . Neck is without jugular venous distension, thyromegaly, or carotid bruits. Lungs are clear to auscultation. Cardiac exam reveals regular rate and Rhythm. First and second heart sounds nor mal. No murmurs, rubs or gallops. Abdominal exam reveals normal bowel sounds, no masses, no organomegaly and no aortic enlargement. Extremities are nonedematous and both femoral and pedal pulses are normal. CLIENT EXPERIENCE ADMINISTRATOR: Alert and oriented 3. No focal weakness. - Constitutional Vitals: Temp Pulse Resp BP Pulse Ox 97.8 F 79 20 107/65 98 06/10/19 13:09 06/10/19 10:00 06/10/19 13:09 06/10/19 13:09 06/10/19 07:43 Results - Labs CBC & Chem 7: 06/10/19 05:14 06/10/19 05:14 Labs: Laboratory Last Values WBC 6.0 K/mm3 (4.5-11.0) 06/10/19 05:14 RBC 3.12 M/mm3 (3.65-5.03) L 06/10/19 05:14 Hgb 10.1 gm/dl (11.8-15.2) L 06/10/19 05:14 Hct 30.1 % (35.5-45.6) L 06/10/19 05:14 MCV 96 fl (84-94) H 06/10/19 05:14 MCH 33 pg (28-32) H 06/10/19 05:14 MCHC 34 % (32-34) 06/10/19 05:14 RDW 13.4 % (13.2-15.2) 06/10/19 05:14 Plt Count 151 K/mm3 (140-440) 06/10/19 05:14 Lymph % (Auto) 26.8 % (13.4-35.0) 06/10/19 05:14 [place] % (Auto) 8.6 % (0.0-7.3) H 06/10/19 05:14 Eos % (Auto) 6.2 % (0.0-4.3) H 06/10/19 05:14 Baso % (Auto) 0.6 % (0.0-1.8) 06/10/19 05:14 Lymph # 1.6 K/mm3 (1.2-5.4) 06/10/19 05:14 [place] # 0.5 K/mm3 (0.0-0.8) 06/10/19 05:14 Eos # 0.4 K/mm3 (0.0-0.4) 06/10/19 05:14 Baso # 0.0 K/mm3 (0.0-0.1) 06/10/19 05:14 Seg Neutrophils % 57.8 % (40.0-70.0) 06/10/19 05:14 Seg Neutrophils # 3.5 K/mm3 (1.8-7.7) 06/10/19 05:14 PT 14.3 Sec. (12.2-14.9) 06/09/19 14:50 INR 1.14 (0.87-1.13) H 06/09/19 14:50 APTT 31.0 Sec. (24.2-36.6) 06/09/19 14:50 Sodium 146 mmol/L (137-145) H 06/10/19 05:14 Potassium 4.2 mmol/L (3.6-5.0) 06/10/19 05:14 Chloride 110.7 mmol/L (98-107) H 06/10/19 05:14 Carbon Dioxide 21 mmol/L (22-30) L 06/10/19 05:14 Anion Gap 19 mmol/L 06/10/19 05:14 BUN 26 mg/dL (9-20) H 06/10/19 05:14 Creatinine 1.4 mg/dL (0.8-1.5) 06/10/19 05:14 Estimated GFR 59 ml/min 06/10/19 05:14 BUN/Creatinine Ratio 19 % 06/10/19 05:14 Glucose 94 mg/dL (75-100) 06/10/19 05:14 POC Glucose 167 (70-105) H 06/10/19 13:50 Calcium 8.3 mg/dL (8.4-10.2) L 06/10/19 05:14 Magnesium 2.10 mg/dL (1.7-2.3) 06/09/19 15:40 Total Bilirubin 0.50 mg/dL (0.1-1.2) 06/09/19 14:50 AST 12 units/L (5-40) 06/09/19 14:50 ALT 10 units/L (7-56) 06/09/19 14:50 Alkaline Phosphatase 58 units/L (35-129) 06/09/19 14:50 Total Creatine Kinase 152 units/L (55-170) 06/09/19 15:40 Troponin T < 0.010 ng/mL (0.00-0.029) 06/09/19 14:50 Total Protein 6.4 g/dL (6.3-8.2) 06/09/19 14:50 Albumin 3.5 g/dL (3.9-5) L 06/09/19 14:50 Albumin/Globulin Ratio 1.2 % 06/09/19 14:50 Lipase 23 units/L (13-60) 06/09/19 14:50 Urine Color Straw (Yellow) 06/09/19 Unknown Urine Turbidity Clear (Clear) 06/09/19 Unknown Urine pH 5.0 (5.0-7.0) 06/09/19 Unknown Ur Specific [place] 1.010 (1.003-1.030) 06/09/19 Unknown Urine Protein <15 mg/dl mg/dL (Negative) 06/09/19 Unknown Urine Glucose (UA) Neg mg/dL (Negative) 06/09/19 Unknown Urine Ketones Neg mg/dL (Negative) 06/09/19 Unknown Urine Blood Mod (Negative) 06/09/19 Unknown Urine Nitrite Neg (Negative) 06/09/19 Unknown Urine Bilirubin Neg (Negative) 06/09/19 Unknown Urine Urobilinogen < 2.0 mg/dL (<2.0) 06/09/19 Unknown Ur Leukocyte Esterase Neg (Negative) 06/09/19 Unknown Urine WBC (Auto) < 1.0 /HPF (0.0-6.0) 06/09/19 Unknown Urine RBC (Auto) < 1.0 /HPF (0.0-6.0) 06/09/19 Unknown Urine Bacteria (Auto) 1+ /HPF (Negative) 06/09/19 Unknown Urine Mucus Few /HPF 06/09/19 Unknown Blood Type O POSITIVE 06/09/19 15:40 Antibody Screen Negative 06/09/19 15:40 Active Medications - Current Medications Current Medications: Generic Name Dose Route Start Last Admin Trade Name Freq PRN Reason Stop Dose Admin Acetaminophen 650 mg 06/09/19 20:23 Tylenol PO Q4H PRN Pain MILD(1-3)/Fever >100.5/TO Atorvastatin Calcium 40 mg 06/10/19 10:00 06/10/19 09:50 Lipitor PO 40 mg DAILY ROSIO Administration Dextrose 0 ml 06/09/19 21:29 D50w (25gm) Syringe IV Q30MIN PRN Hypoglycemia Insulin Human Lispro 0 unit 06/10/19 00:00 06/10/19 13:42 Humalog SUB-Q Not Given Q6HR [facility] Protocol Meclizine HCl 25 mg 06/09/19 20:26 Antivert PO TID PRN Vertigo Miscellaneous Medication 1 drop 06/10/19 08:00 Brimonidine Tartrate [Alphagan P 0.1%] OU TID [facility] Morphine Sulfate 2 mg 06/09/19 20:23 Morphine IV Q4H PRN Pain, Moderate (4-6) Ondansetron HCl 4 mg 06/09/19 20:23 Zofran IV Q6H PRN Nausea And Vomiting Pantoprazole Sodium 40 mg 06/09/19 22:00 06/10/19 09:50 Protonix IV 40 mg BID ROSIO Administration Ranolazine 500 mg 06/09/19 22:00 06/10/19 09:50 Ranexa Er PO 500 mg BID ROSIO Administration Sodium Chloride 10 ml 06/09/19 22:00 06/10/19 09:50 Sodium Chloride Flush Syringe 10 Ml IV 10 ml BID ROSIO Administration Sodium Chloride 10 ml 06/09/19 20:23 Sodium Chloride Flush Syringe 10 Ml IV PRN PRN LINE FLUSH Nutrition/Malnutrition Assess - Dietary Evaluation Nutrition/Malnutrition Findings: Nutrition Notes Start: 06/10/19 12:00 Freq: Status: Active Protocol: Document 06/10/19 12:00 AP (Rec: 06/10/19 13:14 AP [id number]) Co-Sign 06/10/19 12:00 Nutrition Notes Need for Assessment generated from: social media marketing analyst Initial or Follow up Assessment Current Diagnosis Diabetes,Hypertension Other Pertinent Diagnosis ME, CA prostate, diverticulosis, hematochezia, GI bleed Current Diet NPO Labs/Tests Na 146 BUN 26 Pertinent Medications Reviewed Height 5 ft 2 in Weight 61.23 kg [place] Body Weight (kg) 53.63 BMI 24.7 Intake Prior to Admission Good Weight change and time frame Per pt, wt loss of 10 lbs. over the last 2 months Weight Status Appropriate Subjective/Other Information Consult for skin risk. Mark score = 18. Pt states he has a really good appetite, has lost ten pounds in the last two months. No wasting observed. Diet recall, pt states he eats three meals a day, usually grits and davis for breakfast. Asked pt if he was interested in diverticulosis ed, pt declined . Pt children, Sarah and Geoffrey in room at time of visit. Burn Absent Trauma Absent Current % PO Negligible Minimum of two criteria No Interpretation of Weight Loss (severe) >7.5% in 3 months #1 Nutrition Diagnosis Altered GI function Etiology GI bleed As Evidenced by Signs and Symptoms NPO Is patient on ventilator? No Is Patient Ambulatory and/or Out of Bed Yes REE-(Peculiar-. [facility]-ambulatory/OOB) [ [id number] [id number]] Calculation Used for Recommendations [facility] Additional Notes PRO needs: 61-73g/day (1-1.2g. kg) Fluid: 1ml/kcal or per MD Nutrition Intervention Change Diet Order: Advance diet to GI soft when medically feasible. Goal #1 Advance diet when medically feasible. Anticipated Discharge Needs: Uknown at this time Follow-Up By: 06/12/19 Additional Comments F/U for diet advancement.
[2019-06-10 14:44] LABS: Hematocrit 28.2 % (35.5-45.6); Hemoglobin 9.6 gm/dl (11.8-15.2)
[2019-06-10] MEDS: NON-FORMULARY (Brimonidine Tartrate [Alphagan P 0.1%] 1 DROP) OP SCH (21:45)
[2019-06-10 22:12] LABS: Hematocrit 26.8 % (35.5-45.6); Hemoglobin 9.3 gm/dl (11.8-15.2)
[2019-06-11] MEDS: HumaLOG SUB-Q SCH ×4 (00:55→18:13)
[2019-06-11 06:29] LABS: Basophils % (Auto) 0.6 % (0.0-1.8); Eosinophils # (Auto) 0.5 K/mm3 (0.0-0.4); Eosinophils % (Auto) 10.7 % (0.0-4.3); Hematocrit 27.1 % (35.5-45.6); Hemoglobin 9.1 gm/dl (11.8-15.2); Lymphocytes # (Auto) 1.3 K/mm3 (1.2-5.4); Lymphocytes % (Auto) 27.7 % (13.4-35.0); Mean Corpuscular HGB Conc 34 % (32-34); Mean Corpuscular Volume 96 fl (84-94); Monocytes # (Auto) 0.5 K/mm3 (0.0-0.8); Monocytes % (Auto) 9.6 % (0.0-7.3); Platelet Count 148 K/mm3 (140-440); Red Blood Count 2.81 M/mm3 (3.65-5.03)
[2019-06-11 06:46] LABS: Calcium 8.4 mg/dL (8.4-10.2)
--- NOTE | 2019-06-11 08:15 | Event Note ---
Date: 06/11/19 [id number]
[2019-06-11] MEDS: SODIUM CHLORIDE FLUSH SYRINGE 10 ML IV SCH ×3 (08:29→22:34)
--- NOTE | 2019-06-11 08:36 | Consultation ---
REFERRED BY: Jayme Valle MD REASON FOR CONSULTATION: Sigmoid colon cancer. HISTORY OF PRESENT ILLNESS: I saw the patient, a 78-year-old -[place]osoth[place] male with past history of congestive heart failure, CAD, status post intervention, [place], hypertension, hyperlipidemia, diabetes, GI bleed, diverticulitis, asthma, questionable history of PE, who came to the hospital because of hematochezia. He was found to be anemic. Radiology showed a sigmoid colon mass. GI has seen the patient; there is a plan for colonoscopy. At this time, no headache, no visual disturbances, no ear discharge, no chest pain, no palpitation, no abdominal pain, no vomiting. He has history of rectal bleed. No seizure or syncope. No loss of consciousness. PAST MEDICAL HISTORY: As above. PAST SURGICAL HISTORY: Stent placement, last one was 10/2017. SOCIAL HISTORY: . FAMILY HISTORY: Noncontributory. ALLERGIES: None. HOME MEDICATIONS: Lipitor, aspirin and lisinopril. PHYSICAL EXAMINATION: VITAL SIGNS: Temperature 98, pulse 63, respirations 18, BP 113/54. HEENT: Pallor present, no icterus. NECK: No neck lymph nodes. HEART: S1, S2. LUNGS: Clear to auscultation. ABDOMEN: Soft. EXTREMITIES: No calf tenderness. NEUROLOGIC: Alert, awake, oriented. LABORATORY DATA: White cell 4, hemoglobin 9.1, MCV 96, platelets 148. Potassium 4, creatinine 1.4, calcium 8.4. Serum iron 34, ferritin 13, B12 of 335, folate 18. Some of the lab tests were from 2018. RADIOLOGY: CT abdomen and pelvis was done. This shows a sigmoid colon mass, possible primary cancer with small adjacent lymph nodes. ASSESSMENT: 1. Sigmoid colon mass. 2. Lymph nodes. 3. Rectal bleed. 4. Anemia. 5. History of heart failure. 6. History of coronary artery disease, status post percutaneous coronary intervention. 7. History of myocardial infarction. 8. History of hypertension. 9. Hyperlipidemia. 10. Diabetes. 11. Asthma. 12. Questionable history of pulmonary embolism, details not clear. The patient is not on anticoagulation. PLAN: I will follow the patient during inpatient stay. We will await GI evaluation. JOB# [id number] GA/NTS
[2019-06-11 09:22] LABS: Iron 70 ug/dL (49-181); Total Iron Binding Capacity 210 mcg/dL (250-450)
[2019-06-11] MEDS: NON-FORMULARY (Brimonidine Tartrate [Alphagan P 0.1%] 1 DROP) OP SCH ×3 (09:30→23:03)
[2019-06-11] MEDS: PROTONIX IV SCH ×2 (09:31→22:33)
--- NOTE | 2019-06-11 11:07 | Cat Scan Report ---
CT CHEST WITH CONTRAST INDICATION / CLINICAL INFORMATION: colon mass. TECHNIQUE: Axial CT images were obtained through the chest after 100 cc Omnipaque 300 IV contrast. Sagittal and coronal reformatted images. All CT scans at this location are performed using CT dose reduction for A ARIEL by means of automated exposure control. COMPARISON: CTA chest dated 05/30/2019 FINDINGS: HEART: The heart is normal size. No pericardial abnormality. Moderate three-vessel coronary artery ca lcifications are noted. THORACIC AORTA: No significant abnormality. MEDIASTINUM and TEODORA: No significant abnormality. LUNGS: No acute air space or interstitial disease. No pulmonary nodule or mass. PLEURA: No significant pleural effusion. No pneumothorax. SKELETAL SYSTEM: Mild thoracic spondylosis. No suspicious bony lesion is identified. 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 UPPER ABDOMEN: Multiple bilateral simple appearing renal cysts. ADDITIONAL FINDINGS: None. IMPRESSION: No evidence for metastatic disease to the chest. Coronary artery calcifications. Signer Name: Clem Dobbins Jr, MD Signed: 06/11/2019 11:03 AM Workstation Name: [id number]
--- NOTE | 2019-06-11 11:44 | Gastroenterology Progress Note ---
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 (of note CT 2016 showed thickened sigmoid in area of severe diverticulosis seen during colonoscopy) -patient has a hx of prior GI bleeding with similar symptoms in 2016 thought to be diverticular in nature with EGD/colon at that time showing small non-bleeding AVMs in stomach, small hiatal hernia, severe diverticulosis throughout entire colon with old blood, colon polyp, and internal hemorrhoids -He underwent follow up colonoscopy in 2017 for persistent anemia with polyps removed (path precancerous), and again showing diverticulosis and hemorrhoids (tortuous colon) -etiology unclear-likely lower source (diverticular vs mass) vs other -oncology following with tumor markers and CT chest ordered -colonoscopy (+/-EGD) will be cancelled for today and rescheduled for tomorrow due to patient not given colon prep yesterday per nursing -okay for clear liquids today then NPO after MN -continue PPI and supportive care -will follow Subjective Date of service: 06/11/19 Principal diagnosis: GI bleed Interval history: No acute distress or active signs of bleeding overnight or this am. Objective - Constitutional Vitals: Temp Pulse Resp BP Pulse Ox 98.3 F 72 18 135/62 96 06/11/19 07:49 06/11/19 07:49 06/11/19 07:49 06/11/19 07:49 06/11/19 07:49 General appearance: no acute distress - EENT Eyes: PERRL, EOM intact ENT: hearing intact - Respiratory Respiratory effort: normal Respiratory: bilateral: CTA - Cardiovascular Rhythm: regular - Gastrointestinal General gastrointestinal: Present: soft, non-tender, non-distended, normal bowel sounds - Neurologic Neurological: alert and oriented x3 - Labs CBC & Chem 7: 06/11/19 05:57 06/11/19 05:57 Labs: Laboratory Results - last 24 hr 06/10/19 06/10/19 06/10/19 13:50 14:23 16:48 WBC RBC Hgb 9.6 L Hct 28.2 L MCV MCH MCHC RDW Plt Count Lymph % (Auto) [place] % (Auto) Eos % (Auto) Baso % (Auto) Lymph # [place] # Eos # Baso # Seg Neutrophils % Seg Neutrophils # Sodium Potassium Chloride Carbon Dioxide Anion Gap BUN Creatinine Estimated GFR BUN/Creatinine Ratio Glucose POC Glucose 167 H 72 Calcium Iron TIBC Ferritin Vitamin B12 Folate 06/10/19 06/11/19 06/11/19 21:55 00:17 05:57 WBC 4.9 RBC 2.81 L Hgb 9.3 L 9.1 L Hct 26.8 L 27.1 L MCV 96 H MCH 33 H MCHC 34 RDW 13.0 L Plt Count 148 Lymph % (Auto) 27.7 [place] % (Auto) 9.6 H Eos % (Auto) 10.7 H Baso % (Auto) 0.6 Lymph # 1.3 [place] # 0.5 Eos # 0.5 H Baso # 0.0 Seg Neutrophils % 51.4 Seg Neutrophils # 2.5 Sodium Potassium Chloride Carbon Dioxide Anion Gap BUN Creatinine Estimated GFR BUN/Creatinine Ratio Glucose POC Glucose 90 Calcium Iron TIBC Ferritin Vitamin B12 Folate 06/11/19 06/11/19 06/11/19 05:57 05:57 08:36 WBC RBC Hgb Hct MCV MCH MCHC RDW Plt Count Lymph % (Auto) [place] % (Auto) Eos % (Auto) Baso % (Auto) Lymph # [place] # Eos # Baso # Seg Neutrophils % Seg Neutrophils # Sodium 144 Potassium 4.0 Chloride 108.4 H Carbon Dioxide 26 Anion Gap 14 BUN 22 H Creatinine 1.4 Estimated GFR 59 BUN/Creatinine Ratio 16 Glucose 95 POC Glucose 91 Calcium 8.4 Iron 70 TIBC 210 L Ferritin Vitamin B12 Folate 06/11/19 06/11/19 06/11/19 08:36 08:36 08:36 WBC RBC Hgb Hct MCV MCH MCHC RDW Plt Count Lymph % (Auto) [place] % (Auto) Eos % (Auto) Baso % (Auto) Lymph # [place] # Eos # Baso # Seg Neutrophils % Seg Neutrophils # Sodium Potassium Chloride Carbon Dioxide Anion Gap BUN Creatinine Estimated GFR BUN/Creatinine Ratio Glucose POC Glucose Calcium Iron TIBC Ferritin 53.6 Vitamin B12 330.7 Folate 13.03
[2019-06-11] MEDS ORDERED: GOLYTELY PO ONE (12:00)
[2019-06-11] MEDS: RANEXA ER PO SCH ×2 (12:25→22:33)
[2019-06-11] MEDS ORDERED: DIPRIVAN 10 MG/ML IV ONE ×2 (14:41)
--- NOTE | 2019-06-11 16:04 | Consultation ---
History of Present Illness Consult date: 06/11/19 Requesting physician: YSABEL HAMMOND Consult reason: other (svt) History of present illness: The pt is a 78 YO male with a past medical history significant for CAD s/p PCI, ICMP, HFrEF, h/o PE, NSVT, HTN, DM, HLP, diastolic HF, GI bleed in 2013. Pt is followed in our office by Dr. Yan. He presented with c/o rectal bleeding, abdominal pain and a syncopal episode yesterday. He states that his just . He was riding in the car home from the with his family member when he developed abdominal pain and per his family member, briefly lost consciousness. Pt reports rectal bleeding with bright red blood and also black tarry stools for 1 day prior to arrival. Upon admission, abd/pelvic CTA showed suspicion for proximal sigmoid colon mass with small adjacent metastatic nodes (along with atherosclerotic disease and renal scarring/cysts). Pt has been scheduled for endoscopy tomorrow per GI team. Pt was noted to have 12 beat run NSVT and a brief (several seconds) bout of SVT (HR 170s) on telemetry this afternoon and thus cardiology has been consulted. Pt denies any cardiac complaints. LHC done 11/16/2017: patent stents, mild to mod disease elsewhere. most recent PCI of mid-LAD on 11/13/2017 at [facility] per Dr. Segundo Mcintyre 03/2019: EF 35-40%, mild MR, mild TR, impaired relaxation Past History Past Medical History: other (as per HPI) Past Surgical History: Other ( PCI 4 (most recent 11/13/17), lithotripsy, hernia repair) Social history: . denies: smoking, alcohol abuse Family history: no significant family history Medications and Allergies Allergies Allergy/AdvReac Type Severity Reaction Status Date / Time No Known Allergies Allergy Unverified 02/18/16 09:53 Home Medications Medication Instructions Recorded Confirmed Last Taken Type AtorvaSTATin [Lipitor] 40 mg PO DAILY 02/18/16 06/09/19 06/08/19 History Ranolazine ER [Ranexa ER] 1 tab PO BID 04/07/19 06/09/19 06/08/19 History Aspirin EC [Halfprin EC] 81 mg PO DAILY 05/30/19 06/09/19 06/08/19 History Brimonidine Tartrate [Alphagan P 1 drop OU TID 05/30/19 06/09/19 06/08/19 History 0.1%] Lisinopril [Zestril TAB] 5 mg PO QDAY #30 tablet 06/02/19 06/09/19 06/08/19 Rx Meclizine [Antivert] 25 mg PO TID PRN 06/09/19 06/09/19 06/08/19 History Active Meds: Active Medications Acetaminophen (Tylenol) 650 mg PO Q4H PRN PRN Reason: Pain MILD(1-3)/Fever >100.5/TO Atorvastatin Calcium (Lipitor) 40 mg PO DAILY [facility] Last Admin: 06/11/19 12:25 Dose: 40 mg Documented by: Dextrose (D50w (25gm) Syringe) 0 ml IV Q30MIN PRN PRN Reason: Hypoglycemia Insulin Human Lispro (Humalog) 0 unit SUB-Q Q6HR [facility]; Protocol Last Admin: 06/11/19 12:26 Dose: Not Given Documented by: Meclizine HCl (Antivert) 25 mg PO TID PRN PRN Reason: Vertigo Miscellaneous Medication (Brimonidine Tartrate [Alphagan P 0.1%]) 1 drop OP TID [facility] Last Admin: 06/11/19 09:30 Dose: 1 drop Documented by: Morphine Sulfate (Morphine) 2 mg IV Q4H PRN PRN Reason: Pain, Moderate (4-6) Ondansetron HCl (Zofran) 4 mg IV Q6H PRN PRN Reason: Nausea And Vomiting Pantoprazole Sodium (Protonix) 40 mg IV BID [facility] Last Admin: 06/11/19 09:31 Dose: 40 mg Documented by: Ranolazine (Ranexa Er) 500 mg PO BID [facility] Last Admin: 06/11/19 12:25 Dose: 500 mg Documented by: Sodium Chloride (Sodium Chloride Flush Syringe 10 Ml) 10 ml IV BID [facility] Last Admin: 06/11/19 09:31 Dose: 10 ml Documented by: Sodium Chloride (Sodium Chloride Flush Syringe 10 Ml) 10 ml IV PRN PRN PRN Reason: LINE FLUSH Review of Systems Constitutional: no weight loss, no weight gain, no fever, no chills, no sweats Ears, nose, mouth and throat: no ear pain, no nose pain, no sinus pressure, no sinus pain Cardiovascular: syncope, no chest pain, no orthopnea, no palpitations, no rapid/irregular heart beat, no edema, no lightheadedness, no shortness of breath, no dyspnea on exertion Respiratory: no cough, no shortness of breath, no dyspnea on exertion, no congestion, no wheezing, no pain on inspiration Gastrointestinal: abdominal pain, BRBPR, melena, no nausea, no vomiting Genitourinary Male: no dysuria, no hematuria, no flank pain, no discharge, no urinary frequency, no urinary hesitancy Musculoskeletal: no neck stiffness, no neck pain, no shooting arm pain, no arm numbness/tingling, no low back pain, no shooting leg pain Integumentary: no rash, no pruritis, no redness, no sores, no wounds Neurological: syncope, no head injury, no paralysis, no weakness, no parathesias, no numbness, no tingling, no seizures Psychiatric: no anxiety Endocrine: no cold intolerance, no heat intolerance Hematologic/Lymphatic: no easy bruising, no easy bleeding Allergic/Immunologic: no urticaria, no wheezing Physical Examination Vital Signs Temp Pulse Resp BP Pulse Ox 98.2 F 79 18 107/63 100 06/09/19 14:17 06/09/19 14:17 06/09/19 14:17 06/09/19 14:17 06/09/19 14:17 General appearance: no acute distress HEENT: Positive: PERRL, Normocephaly, Mucus Membranes Moist Neck: Positive: neck supple, trachea midline Cardiac: Positive: Reg Rate and Rhythm, S1/S2 Lungs: Positive: Decreased Breath Sounds Neuro: Positive: Grossly Intact Abdomen: Negative: Tender Skin: Negative: Rash Musculoskeletal: No Pain Extremities: Absent: edema Results 06/11/19 05:57 06/11/19 05:57 CBC 06/10/19 06/11/19 Range/Units 21:55 05:57 WBC 4.9 (4.5-11.0) K/mm3 RBC 2.81 L (3.65-5.03) M/mm3 Hgb 9.3 L 9.1 L (11.8-15.2) gm/dl Hct 26.8 L 27.1 L (35.5-45.6) % Plt Count 148 (140-440) K/mm3 Lymph # 1.3 (1.2-5.4) K/mm3 [place] # 0.5 (0.0-0.8) K/mm3 Eos # 0.5 H (0.0-0.4) K/mm3 Baso # 0.0 (0.0-0.1) K/mm3 Comprehensive Metabolic Panel 06/11/19 Range/Units 05:57 Sodium 144 (137-145) mmol/L Potassium 4.0 (3.6-5.0) mmol/L Chloride 108.4 H (98-107) mmol/L Carbon Dioxide 26 (22-30) mmol/L BUN 22 H (9-20) mg/dL Creatinine 1.4 (0.8-1.5) mg/dL Glucose 95 (75-100) mg/dL Calcium 8.4 (8.4-10.2) mg/dL - Imaging and Cardiology Echo: report reviewed (03/2019: EF 35-40%, mild MR, mild TR, impaired relaxation) Cardiac cath: report reviewed (11/16/2017: patent stents, mild to mod disease elsewhere. most recent PCI of mid-LAD on 11/13/2017 at [facility] per Dr. Segundo Mcintyre) EKG: report reviewed, image reviewed EKG interpretations - Telemetry EKG Rhythm: Sinus Rhythm - EKG Sinus rhythms and dysrhythmias: sinus rhythm Assessment and Plan Currently stable cardiac status. Resume home cardiac regimen (ASA and Effient held in setting of GI bleed) and continue to monitor on telemetry. Monitor lytes. The patient has been seen in conjunction with Dr. WHIT Mcintyre who agrees with the assessment and plan of care. - Patient Problems (1) GI bleed Current Visit: Yes Status: Acute Qualifiers: GI bleed type/associated pathology: unspecified gastrointestinal hemorrhage type Qualified Code(s): K92.2 - Gastrointestinal hemorrhage, unspecified (2) Anemia Current Visit: Yes Status: Acute (3) Mass of colon Current Visit: Yes Status: Acute (4) CAD (coronary artery disease) Current Visit: Yes Status: Chronic Qualifiers: Coronary Disease-Associated Artery/Lesion type: [place] artery [place] vs. transplanted heart: [place] heart (5) Stented coronary artery Current Visit: Yes Status: Chronic (6) SVT (supraventricular tachycardia) Current Visit: Yes Status: Acute (7) NSVT (nonsustained ventricular tachycardia) Current Visit: Yes Status: Acute (8) Syncope Current Visit: Yes Status: Acute Qualifiers: Syncope type: unspecified Qualified Code(s): R55 - Syncope and collapse (9) HTN (hypertension) Current Visit: Yes Status: Chronic Qualifiers: Hypertension type: essential hypertension Qualified Code(s): I10 - Essential (primary) hypertension (10) Hx of pulmonary embolus Current Visit: Yes Status: Chronic (11) Hyperlipidemia Current Visit: Yes Status: Chronic (12) Ischemic cardiomyopathy Current Visit: Yes Status: Chronic
--- NOTE | 2019-06-11 18:00 | Progress Note ---
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 Atherosclerotic disease of the aorta and its branches without active bleeding site or high-grade focal stenosis. Renal scarring left greater than right and benign appearing renal cysts. -Hx GI Bleed and diverticulitis -Total of 5 episodes of large dark red stool -Heme positive -On IV Protonix twice a day -GI consult and will do colonoscopy tomorrow -Hematology consult SVT - cardiology consulted and recommend no further work up Anemia due to acute blood loss -Hemoglobin on admission 10.7 (down from 13.9 on 05/31/19) -Active lower GI bleed -Continue to monitor hemoglobin and hematocrit -Transfuse as needed DM2 -POC BG monitoring -SSI coverage prn HTN -Monitor BP -Resume home antihypertensive meds Near-syncopal episode -Pt Denies loss of consciousness -Per family pt "almost passed out" while sitting in car -VL carotid duplex on 06/02/19 was negative: No hemodynamically significant stenosis by NASCET criteria. DVT PPX -SCD's -Systemic anticoagulation due to active GI bleed Advance Directives: No VTE prophylaxis?: Mechanical Plan of care discussed with patient/family: Yes History Interval history: Patient was seen and evaluated this morning, she is alert and oriented. No rectal bleeding since this morning. Patient didn't prep for colonoscopy. Hospitalist Physical - Physical exam Narrative exam: Not in cardiopulmonary distress. The patient appeared well nourished and normally developed. Vital signs as documented. Head exam is unremarkable. No scleral icterus . Neck is without jugular venous distension, thyromegaly, or carotid bruits. Lungs are clear to auscultation. Cardiac exam reveals regular rate and Rhythm. First and second heart sounds normal. No murmurs, rubs or gallops. Abdominal exam reveals normal bowel sounds, no masses, no organomegaly and no aortic enlargement. Extremities are nonedematous and both femoral and pedal pulses are normal. OUTREACH REPRESENTATIVE: Alert and oriented 3. No focal weakness. - Constitutional Vitals: Temp Pulse Resp BP Pulse Ox 98.3 F 72 18 135/62 96 06/11/19 07:49 06/11/19 07:49 06/11/19 07:49 06/11/19 07:49 06/11/19 07:49 General appearance: Present: no acute distress Results - Labs CBC & Chem 7: 06/11/19 05:57 06/11/19 05:57 Labs: Laboratory Last Values WBC 4.9 K/mm3 (4.5-11.0) 06/11/19 05:57 RBC 2.81 M/mm3 (3.65-5.03) L 06/11/19 05:57 Hgb 9.1 gm/dl (11.8-15.2) L 06/11/19 05:57 Hct 27.1 % (35.5-45.6) L 06/11/19 05:57 MCV 96 fl (84-94) H 06/11/19 05:57 MCH 33 pg (28-32) H 06/11/19 05:57 MCHC 34 % (32-34) 06/11/19 05:57 RDW 13.0 % (13.2-15.2) L 06/11/19 05:57 Plt Count 148 K/mm3 (140-440) 06/11/19 05:57 Lymph % (Auto) 27.7 % (13.4-35.0) 06/11/19 05:57 [place] % (Auto) 9.6 % (0.0-7.3) H 06/11/19 05:57 Eos % (Auto) 10.7 % (0.0-4.3) H 06/11/19 05:57 Baso % (Auto) 0.6 % (0.0-1.8) 06/11/19 05:57 Lymph # 1.3 K/mm3 (1.2-5.4) 06/11/19 05:57 [place] # 0.5 K/mm3 (0.0-0.8) 06/11/19 05:57 Eos # 0.5 K/mm3 (0.0-0.4) H 06/11/19 05:57 Baso # 0.0 K/mm3 (0.0-0.1) 06/11/19 05:57 Seg Neutrophils % 51.4 % (40.0-70.0) 06/11/19 05:57 Seg Neutrophils # 2.5 K/mm3 (1.8-7.7) 06/11/19 05:57 PT 14.3 Sec. (12.2-14.9) 06/09/19 14:50 INR 1.14 (0.87-1.13) H 06/09/19 14:50 APTT 31.0 Sec. (24.2-36.6) 06/09/19 14:50 Sodium 144 mmol/L (137-145) 06/11/19 05:57 Potassium 4.0 mmol/L (3.6-5.0) 06/11/19 05:57 Chloride 108.4 mmol/L (98-107) H 06/11/19 05:57 Carbon Dioxide 26 mmol/L (22-30) 06/11/19 05:57 Anion Gap 14 mmol/L 06/11/19 05:57 BUN 22 mg/dL (9-20) H 06/11/19 05:57 Creatinine 1.4 mg/dL (0.8-1.5) 06/11/19 05:57 Estimated GFR 59 ml/min 06/11/19 05:57 BUN/Creatinine Ratio 16 % 06/11/19 05:57 Glucose 95 mg/dL (75-100) 06/11/19 05:57 POC Glucose 106 (70-105) H 06/11/19 17:45 Calcium 8.4 mg/dL (8.4-10.2) 06/11/19 05:57 Magnesium 2.20 mg/dL (1.7-2.3) 06/11/19 16:45 Iron 70 ug/dL (49-181) 06/11/19 08:36 TIBC 210 mcg/dL (250-450) L 06/11/19 08:36 Ferritin 53.6 ng/mL (13.0-400.0) 06/11/19 08:36 Total Bilirubin 0.50 mg/dL (0.1-1.2) 06/09/19 14:50 AST 12 units/L (5-40) 06/09/19 14:50 ALT 10 units/L (7-56) 06/09/19 14:50 Alkaline Phosphatase 58 units/L (35-129) 06/09/19 14:50 Total Creatine Kinase 152 units/L (55-170) 06/09/19 15:40 Troponin T < 0.010 ng/mL (0.00-0.029) 06/09/19 14:50 Total Protein 6.4 g/dL (6.3-8.2) 06/09/19 14:50 Albumin 3.5 g/dL (3.9-5) L 06/09/19 14:50 Albumin/Globulin Ratio 1.2 % 06/09/19 14:50 Lipase 23 units/L (13-60) 06/09/19 14:50 Vitamin B12 330.7 pg/mL (211-911) 06/11/19 08:36 Folate 13.03 ng/mL (7.3-26.0) 06/11/19 08:36 Urine Color Straw (Yellow) 06/09/19 Unknown Urine Turbidity Clear (Clear) 06/09/19 Unknown Urine pH 5.0 (5.0-7.0) 06/09/19 Unknown Ur Specific [place] 1.010 (1.003-1.030) 06/09/19 Unknown Urine Protein <15 mg/dl mg/dL (Negative) 06/09/19 Unknown Urine Glucose (UA) Neg mg/dL (Negative) 06/09/19 Unknown Urine Ketones Neg mg/dL (Negative) 06/09/19 Unknown Urine Blood Mod (Negative) 06/09/19 Unknown Urine Nitrite Neg (Negative) 06/09/19 Unknown Urine Bilirubin Neg (Negative) 06/09/19 Unknown Urine Urobilinogen < 2.0 mg/dL (<2.0) 06/09/19 Unknown Ur Leukocyte Esterase Neg (Negative) 06/09/19 Unknown Urine WBC (Auto) < 1.0 /HPF (0.0-6.0) 06/09/19 Unknown Urine RBC (Auto) < 1.0 /HPF (0.0-6.0) 06/09/19 Unknown Urine Bacteria (Auto) 1+ /HPF (Negative) 06/09/19 Unknown Urine Mucus Few /HPF 06/09/19 Unknown Blood Type O POSITIVE 06/09/19 15:40 Antibody Screen Negative 06/09/19 15:40 Active Medications - Current Medications Current Medications: Generic Name Dose Route Start Last Admin Trade Name Freq PRN Reason Stop Dose Admin Acetaminophen 650 mg 06/09/19 20:23 Tylenol PO Q4H PRN Pain MILD(1-3)/Fever >100.5/TO Atorvastatin Calcium 40 mg 06/10/19 10:00 06/11/19 12:25 Lipitor PO 40 mg DAILY ROSIO Administration Dextrose 0 ml 06/09/19 21:29 D50w (25gm) Syringe IV Q30MIN PRN Hypoglycemia Insulin Human Lispro 0 unit 06/10/19 00:00 06/11/19 12:26 Humalog SUB-Q Not Given Q6HR [facility] Protocol Meclizine HCl 25 mg 06/09/19 20:26 Antivert PO TID PRN Vertigo Metoprolol Tartrate 25 mg 06/11/19 20:00 Metoprolol PO TID [facility] Miscellaneous Medication 1 drop 06/10/19 20:00 06/11/19 17:17 Brimonidine Tartrate [Alphagan P 0.1%] OP 1 drop TID ROSIO Administration Morphine Sulfate 2 mg 06/09/19 20:23 Morphine IV Q4H PRN Pain, Moderate (4-6) Ondansetron HCl 4 mg 06/09/19 20:23 06/11/19 17:39 Zofran IV 4 mg Q6H PRN Administration Nausea And Vomiting Pantoprazole Sodium 40 mg 06/09/19 22:00 06/11/19 09:31 Protonix IV 40 mg BID ROSIO Administration Ranolazine 500 mg 06/09/19 22:00 06/11/19 12:25 Ranexa Er PO 500 mg BID ROSIO Administration Sodium Chloride 10 ml 06/09/19 22:00 06/11/19 09:31 Sodium Chloride Flush Syringe 10 Ml IV 10 ml BID ROSIO Administration Sodium Chloride 10 ml 06/09/19 20:23 Sodium Chloride Flush Syringe 10 Ml IV PRN PRN LINE FLUSH Nutrition/Malnutrition Assess - Dietary Evaluation Nutrition/Malnutrition Findings: Nutrition Notes Start: 06/10/19 12:00 Freq: Status: Active Protocol: Document 06/10/19 12:00 AP (Rec: 06/10/19 13:14 AP [id number]) Co-Sign 06/10/19 12:00 KH Nutrition Notes Need for Assessment generated from: websphere message broker developer Initial or Follow up Assessment Current Diagnosis Diabetes,Hypertension Other Pertinent Diagnosis SC, CA prostate, diverticulosis, hematochezia, GI bleed Current Diet NPO Labs/Tests Na 146 BUN 26 Pertinent Medications Reviewed Height 5 ft 2 in Weight 61.23 kg [place] Body Weight (kg) 53.63 BMI 24.7 Intake Prior to Admission Good Weight change and time frame Per pt, wt loss of 10 lbs. over the last 2 months Weight Status Appropriate Subjective/Other Information Consult for skin risk. Mark score = 18. Pt states he has a really good appetite, has lost ten pounds in the last two months. No wasting observed. Diet recall, pt states he eats three meals a day, usually grits and davis for breakfast. Asked pt if he was interested in diverticulosis ed, pt declined . Pt children, Sarah and Geoffrey in room at time of visit. Burn Absent Trauma Absent Current % PO Negligible Minimum of two criteria No Interpretation of Weight Loss (severe) >7.5% in 3 months #1 Nutrition Diagnosis Altered GI function Etiology GI bleed As Evidenced by Signs and Symptoms NPO Is patient on ventilator? No Is Patient Ambulatory and/or Out of Bed Yes REE-([facility]-ambulatory/OOB) [ [id number] [id number]] Calculation Used for Recommendations [facility] Additional Notes PRO needs: 61-73g/day (1-1.2g. kg) Fluid: 1ml/kcal or per MD Nutrition Intervention Change Diet Order: Advance diet to GI soft when medically feasible. Goal #1 Advance diet when medically feasible. Anticipated Discharge Needs: Uknown at this time Follow-Up By: 06/12/19 Additional Comments F/U for diet advancement.
[2019-06-11] MEDS: METOPROLOL PO SCH (22:30)
[2019-06-12 06:06] LABS: Hematocrit 26.8 % (35.5-45.6); Hemoglobin 9.1 gm/dl (11.8-15.2)
[2019-06-12 06:24] LABS: Calcium 8.3 mg/dL (8.4-10.2)
--- NOTE | 2019-06-12 06:26 | Hem/Onc Progress Note ---
Assessment and Plan 1. Sigmoid colon mass. 2. Lymph nodes. 3. Rectal bleed. 4. Anemia. 5. History of heart failure. 6. History of coronary artery disease, status post percutaneous coronary intervention. 7. History of myocardial infarction. 8. History of hypertension. 9. Hyperlipidemia. 10. Diabetes. 11. Asthma. 12. Questionable history of pulmonary embolism, details not clear. The patient is not on anticoagulation. due colonoscopy - Patient Problems (1) Mass of colon Current Visit: Yes Status: Acute Subjective Date of service: 06/12/19 Principal diagnosis: sigmoid mass Interval history: due colonoscopy Objective - Exam Narrative Exam: Pain - none General appearance - awake - no acute distress Performance status limited self care Eyes - no icterus ENT - no thrush LNs cervical not palpable Neck - no LN Respiratory Normal Breath sounds - CTA anteriorly CVS S1 S2 + Extremities no edema General GI Soft Rectal deferred male - deferred Skin warm Musculoskeletal moves limbs Neurologically awake. - Constitutional Vitals: Last Vital Signs Temp 98.7 F 06/12/19 01:54 Pulse 66 06/12/19 01:54 Resp 18 06/12/19 01:54 BP 106/55 06/12/19 01:54 Pulse Ox 93 06/12/19 01:54 - Labs Lab Results: Laboratory Results - last 24 hr 06/11/19 06/11/19 06/11/19 05:57 05:57 08:36 WBC 4.9 RBC 2.81 L Hgb 9.1 L Hct 27.1 L MCV 96 H MCH 33 H MCHC 34 RDW 13.0 L Plt Count 148 Lymph % (Auto) 27.7 [place] % (Auto) 9.6 H Eos % (Auto) 10.7 H Baso % (Auto) 0.6 Lymph # 1.3 [place] # 0.5 Eos # 0.5 H Baso # 0.0 Seg Neutrophils % 51.4 Seg Neutrophils # 2.5 Sodium 144 Potassium 4.0 Chloride 108.4 H Carbon Dioxide 26 Anion Gap 14 BUN 22 H Creatinine 1.4 Estimated GFR 59 BUN/Creatinine Ratio 16 Glucose 95 POC Glucose Calcium 8.4 Magnesium Iron 70 TIBC 210 L Ferritin Vitamin B12 Folate 06/11/19 06/11/19 06/11/19 08:36 08:36 08:36 WBC RBC Hgb Hct MCV MCH MCHC RDW Plt Count Lymph % (Auto) [place] % (Auto) Eos % (Auto) Baso % (Auto) Lymph # [place] # Eos # Baso # Seg Neutrophils % Seg Neutrophils # Sodium Potassium Chloride Carbon Dioxide Anion Gap BUN Creatinine Estimated GFR BUN/Creatinine Ratio Glucose POC Glucose Calcium Magnesium Iron TIBC Ferritin 53.6 Vitamin B12 330.7 Folate 13.03 06/11/19 06/11/19 06/11/19 12:28 16:45 17:45 WBC RBC Hgb Hct MCV MCH MCHC RDW Plt Count Lymph % (Auto) [place] % (Auto) Eos % (Auto) Baso % (Auto) Lymph # [place] # Eos # Baso # Seg Neutrophils % Seg Neutrophils # Sodium Potassium Chloride Carbon Dioxide Anion Gap BUN Creatinine Estimated GFR BUN/Creatinine Ratio Glucose POC Glucose 130 H 106 H Calcium Magnesium 2.20 Iron TIBC Ferritin Vitamin B12 Folate 06/12/19 06/12/19 06/12/19 05:44 05:44 05:50 WBC RBC Hgb 9.1 L Hct 26.8 L MCV MCH MCHC RDW Plt Count Lymph % (Auto) [place] % (Auto) Eos % (Auto) Baso % (Auto) Lymph # [place] # Eos # Baso # Seg Neutrophils % Seg Neutrophils # Sodium 144 Potassium 4.2 Chloride 107.1 H Carbon Dioxide 24 Anion Gap 17 BUN 15 Creatinine 1.5 Estimated GFR 55 BUN/Creatinine Ratio 10 Glucose 104 H POC Glucose 99 Calcium 8.3 L Magnesium Iron TIBC Ferritin Vitamin B12 Folate Medications & Allergies - Medications Allergies/Adverse Reactions: Allergies No Known Allergies Allergy (Unverified 02/18/16 09:53) Home Medications: Home Medications Medication Instructions Recorded Confirmed Last Taken Type AtorvaSTATin [Lipitor] 40 mg PO DAILY 02/18/16 06/09/19 06/08/19 History Ranolazine ER [Ranexa ER] 1 tab PO BID 04/07/19 06/09/19 06/08/19 History Aspirin EC [Halfprin EC] 81 mg PO DAILY 05/30/19 06/09/19 06/08/19 History Brimonidine Tartrate [Alphagan P 1 drop OU TID 05/30/19 06/09/19 06/08/19 History 0.1%] Lisinopril [Zestril TAB] 5 mg PO QDAY #30 tablet 06/02/19 06/09/19 06/08/19 Rx Meclizine [Antivert] 25 mg PO TID PRN 06/09/19 06/09/19 06/08/19 History Active Medications: Generic Name Dose Route Start Last Admin Trade Name Tanisha PRN Reason Stop Dose Admin Acetaminophen 650 mg 06/09/19 20:23 Tylenol PO Q4H PRN Pain MILD(1-3)/Fever >100.5/TO Atorvastatin Calcium 40 mg 06/10/19 10:00 06/11/19 12:25 Lipitor PO 40 mg DAILY ROSIO Administration Dextrose 0 ml 06/09/19 21:29 D50w (25gm) Syringe IV Q30MIN PRN Hypoglycemia Insulin Human Lispro 0 unit 06/10/19 00:00 06/11/19 18:13 Humalog SUB-Q Not Given Q6HR [facility] Protocol Meclizine HCl 25 mg 06/09/19 20:26 Antivert PO TID PRN Vertigo Metoprolol Tartrate 25 mg 06/11/19 20:00 06/11/19 22:30 Metoprolol PO 25 mg TID ROSIO Administration Miscellaneous Medication 1 drop 06/10/19 20:00 06/11/19 23:03 Brimonidine Tartrate [Alphagan P 0.1%] OP 1 drop TID ROSIO Administration Morphine Sulfate 2 mg 06/09/19 20:23 Morphine IV Q4H PRN Pain, Moderate (4-6) Ondansetron HCl 4 mg 06/09/19 20:23 06/11/19 17:39 Zofran IV 4 mg Q6H PRN Administration Nausea And Vomiting Pantoprazole Sodium 40 mg 06/09/19 22:00 06/11/19 22:33 Protonix IV 40 mg BID ROSIO Administration Ranolazine 500 mg 06/09/19 22:00 06/11/19 22:33 Ranexa Er PO 500 mg BID ROSIO Administration Sodium Chloride 10 ml 06/09/19 22:00 06/11/19 22:34 Sodium Chloride Flush Syringe 10 Ml IV 10 ml BID ROSIO Administration Sodium Chloride 10 ml 06/09/19 20:23 Sodium Chloride Flush Syringe 10 Ml IV PRN PRN LINE FLUSH
[2019-06-12] MEDS: HumaLOG SUB-Q SCH ×3 (08:22→18:02)
[2019-06-12] MEDS: NON-FORMULARY (Brimonidine Tartrate [Alphagan P 0.1%] 1 DROP) OP SCH ×2 (09:22→19:58)
[2019-06-12] MEDS: METOPROLOL PO SCH ×3 (09:22→21:15)
[2019-06-12] MEDS: SODIUM CHLORIDE FLUSH SYRINGE 10 ML IV SCH ×2 (09:23→21:15)
--- NOTE | 2019-06-12 10:19 | Progress Note ---
Assessment and Plan Currently stable cardiac status. Cont home cardiac regimen (ASA and Effient held in setting of GI bleed) and continue to monitor on telemetry. Monitor lytes. Pt for endoscopy today. The patient has been seen in conjunction with Dr. Francisco Mcintyre who agrees with the assessment and plan of care. - Patient Problems (1) GI bleed Current Visit: Yes Status: Acute Qualifiers: GI bleed type/associated pathology: unspecified gastrointestinal hemorrhage type Qualified Code(s): K92.2 - Gastrointestinal hemorrhage, unspecified (2) Anemia Current Visit: Yes Status: Acute (3) Mass of colon Current Visit: Yes Status: Acute (4) CAD (coronary artery disease) Current Visit: Yes Status: Chronic Qualifiers: Coronary Disease-Associated Artery/Lesion type: [place] artery [place] vs. transplanted heart: [place] heart (5) Stented coronary artery Current Visit: Yes Status: Chronic (6) SVT (supraventricular tachycardia) Current Visit: Yes Status: Acute (7) NSVT (nonsustained ventricular tachycardia) Current Visit: Yes Status: Acute (8) Syncope Current Visit: Yes Status: Acute Qualifiers: Syncope type: unspecified Qualified Code(s): R55 - Syncope and collapse (9) HTN (hypertension) Current Visit: Yes Status: Chronic Qualifiers: Hypertension type: essential hypertension Qualified Code(s): I10 - Essential (primary) hypertension (10) Hx of pulmonary embolus Current Visit: Yes Status: Chronic (11) Hyperlipidemia Current Visit: Yes Status: Chronic (12) Ischemic cardiomyopathy Current Visit: Yes Status: Chronic Subjective Date of service: 06/12/19 Principal diagnosis: sigmoid mass Interval history: pt resting in bed, no current complaints, for endoscopy today. tele reviewed - in SR with no acute events overnight. Objective Last Vital Signs Temp 98.6 F 06/12/19 08:36 Pulse 60 06/12/19 08:36 Resp 20 06/12/19 08:36 BP 122/52 06/12/19 08:36 Pulse Ox 94 06/12/19 08:36 - Physical Examination General: No Apparent Distress HEENT: Positive: PERRL, Normocephaly, Mucus Membranes Moist Neck: Positive: neck supple, trachea midline Cardiac: Positive: Reg Rate and Rhythm, S1/S2 Lungs: Positive: Decreased Breath Sounds Neuro: Positive: Grossly Intact Abdomen: Negative: Tender Skin: Negative: Rash Musculoskeletal: No Pain Extremities: Absent: edema - Labs and Meds CBC 06/12/19 Range/Units 05:44 Hgb 9.1 L (11.8-15.2) gm/dl Hct 26.8 L (35.5-45.6) % Comprehensive Metabolic Panel 06/12/19 Range/Units 05:44 Sodium 144 (137-145) mmol/L Potassium 4.2 (3.6-5.0) mmol/L Chloride 107.1 H (98-107) mmol/L Carbon Dioxide 24 (22-30) mmol/L BUN 15 (9-20) mg/dL Creatinine 1.5 (0.8-1.5) mg/dL Glucose 104 H (75-100) mg/dL Calcium 8.3 L (8.4-10.2) mg/dL - Imaging and Cardiology EKG: report reviewed, image reviewed Echo: report reviewed (03/2019: EF 35-40%, mild MR, mild TR, impaired relaxation) Cardiac cath: report reviewed (11/16/2017: patent stents, mild to mod disease elsewhere. most recent PCI of mid-LAD on 11/13/2017 at [facility] per Dr. Segundo Mcintyre) - Telemetry EKG Rhythm: Sinus Rhythm - EKG Sinus rhythms and dysrhythmias: sinus rhythm
[2019-06-12] MEDS ORDERED: NACL 0.9% 1000 ML 1,000 ML ONE (14:23)
--- NOTE | 2019-06-12 14:37 | Anesthesia Consultation ---
Anesthesia Consult and Med Hx Date of service: 06/12/19 - Airway Anesthetic Teeth Evaluation: Good, Edentulous (Upper Edent) ROM Head & Neck: Adequate Mental/Hyoid Distance: Adequate Mallampati Class: Class III Intubation Access Assessment: Probably Good - Pre-Operative Health Status ASA Pre-Surgery Classification: ASA3, Emergency Proposed Anesthetic Plan: MAC - Pulmonary Hx Smoking: Yes (Quit smoking 30 years ago) Hx Asthma: Yes (controlled) - Cardiovascular System Hx Hypertension: Yes (See notes below) Hx Coronary Artery Disease: Yes Hx Heart Attack/AMI: Yes Hx Percutaneous Transluminal Coronary Angioplasty (PTCA): Yes (2006&2011) - Central Nervous System Hx Psychiatric Problems: No - Gastrointestinal Hx Ulcer: Yes (GI Bleed) - Endocrine Hx Non-Insulin Dependent Diabetes: Yes - Hematic Hx Anemia: Yes - Additional Comments Anesthesia Medical History Comments: 78-year-old -[place] male with history of CHF with EF 35-45%, CAD status post PCI 4 (most recent 11/13/17), [place] 2, HTN, HLD, DM, GI bleed, diverticulitis, asthma, and questionable history of PE. Review of medical records shows patient was previously admitted on 05/30/19 with complaints of chest pain and near syncopal episode. He was seen by cardiology, charted on oral nitrates, and advised to follow up outpatient. Past Medical History: acute LA (x2), CAD (s/p PCI x4), diabetes, heart failure (EF 35-45%), hypertension, other (asthma, questionable history of PE, GI bleed, diverticulitis). The pt is a 78 YO male with a past medical history significant for CAD s/p PCI, ICMP, HFrEF, h/o PE, NSVT, HTN, DM, HLP, diastolic HF, GI bleed in 2013. Pt is followed by Dr. Yan. Pt was noted to have 12 beat run NSVT and a brief (several seconds) bout of SVT (HR 170s) on telemetry this afternoon and thus cardiology has been consulted. Pt denies any cardiac complaints. LHC done 11/16/2017: patent stents, mild to mod disease elsewhere. most recent PCI of mid-LAD on 11/13/2017 at [facility] per Dr. Segundo Mcintyre. 03/2019: EF 35-40%, mild MR, mild TR, impaired relaxation. - Imaging and Cardiology. Echo: report reviewed (03/2019: EF 35-40%, mild MR, mild TR, impaired relaxation). Cardiac cath: report reviewed (11/16/2017: patent stents, mild to mod disease elsewhere. most recent PCI of mid-LAD on 11/13/2017 at [facility] per Dr. Segundo Mcintyre). EKG interpretations. - Telemetry. EKG Rhythm: Sinus Rhythm. - EKG. Sinus rhythms and dysrhythmias: sinus rhythm. Assessment and Plan. Currently stable cardiac status. Resume home cardiac regimen (ASA and Effient held in setting of GI bleed) and continue to monitor on telemetry. Monitor lytes. - Patient Problems. (1) GI bleed. Current Visit: Yes Status: Acute. Qualifiers: GI bleed type/associated pathology: unspecified gastrointestinal hemorrhage type Qualified Code(s): K92.2 - Gastrointestinal hemorrhage, unspecified. (2) Anemia. Current Visit: Yes Status: Acute. (3) Mass of colon. Current Visit: Yes Status: Acute. (4) CAD (coronary artery disease). Current Visit: Yes Status: Chronic. Qualifiers: Coronary Disease-Associated Artery/Lesion type: [place] artery [place] vs. transplanted heart: [place] heart. (5) Stented co ronary artery. Current Visit: Yes Status: Chronic. (6) SVT (supraventricular tachycardia). Current Visit: Yes Status: Acute. (7) NSVT (nonsustained ventricular tachycardia). Current Visit: Yes Status: Acute. (8) Syncope. Current Visit: Yes Status: Acute. Qualifiers: Syncope type: unspecified Qualified Code(s): R55 - Syncope and collapse. (9) HTN (hypertension). Current Visit: Yes Status: Chronic. Qualifiers: Hypertension type: essential hypertension Qualified Code(s): I10 - Essential (primary) hypertension. (10) Hx of pulmonary embolus. Current Visit: Yes Status: Chronic. (11) Hyperlipidemia. Current Visit: Yes Status: Chronic. (12) Ischemic cardiomyopathy. Current Visit: Yes Status: Chronic
[2019-06-12] MEDS: RANEXA ER PO SCH ×2 (14:46→21:15)
[2019-06-12] MEDS: PROTONIX IV SCH ×2 (14:46→21:15)
--- NOTE | 2019-06-12 14:48 | Anesthesia Day of Surgery ---
Anesthesia Day of Surgery - Day of Surgery Patient Examined: Yes Patient H&P Reviewed: Yes Patient is NPO: Yes
[2019-06-12] MEDS ORDERED: NACL 0.9% 1000 ML 1,000 ML IV SCH (15:00)
[2019-06-12] MEDS ORDERED: DIPRIVAN 10 MG/ML IV ONE (15:02)
--- NOTE | 2019-06-12 15:23 | Progress Note ---
Assessment and Plan Assessment and plan: 78-year-old -[place] male with history of CHF with EF 35-45%, CAD status post PCI 4 (most recent 11/13/17), [place] 2, HTN, HLD, DM, GI bleed, diverticulitis, asthma, and questionable history of PE who presents to [facility] ED with complaints large amount of dark bloody stool 3 and near-syncopal event. 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 Atherosclerotic disease of the aorta and its branches without active bleeding site or high-grade focal stenosis. Renal scarring left greater than right and benign appearing renal cysts. -Hx GI Bleed and diverticulitis -Total of 5 episodes of large dark red stool -Heme positive -On Protonix twice a day -GI consult and will do colonoscopy today -Oncology consulted SVT - cardiology consulted and recommend no further work up - Controlled Anemia due to acute blood loss -Hemoglobin on admission 10.7 (down from 13.9 on 05/31/19), 9.1 -Active lower GI bleed -Continue to monitor hemoglobin and hematocrit -Transfuse as needed DM2 -POC BG monitoring -SSI coverage prn HTN -Monitor BP -Resume home antihypertensive meds Near-syncopal episode -Pt Denies loss of consciousness -Per family pt "almost passed out" while sitting in car - carotid duplex on 06/02/19 was negative: No hemodynamically significant stenosis by NASCET criteria. DVT PPX -SCD's -Systemic anticoagulation due to active GI bleed Advance Directives: No VTE prophylaxis?: Mechanical Plan of care discussed with patient/family: Yes History Interval history: Patient was seen and evaluated this morning, she is alert and oriented. No rectal bleeding since this morning. Hospitalist Physical - Physical exam Narrative exam: Not in cardiopulmonary distress. The patient appeared well nourished and normally developed. Vital signs as documented. Head exam is unremarkable. No scleral icterus . Neck is without jugular venous distension, thyromegaly, or carotid bruits. Lungs are clear to auscultation. Cardiac exam reveals regular rate and Rhythm. First and second heart sounds normal. No murmurs, rubs or gallops. Abdominal exam reveals normal bowel sounds, no masses, no organomegaly and no aortic enlargement. Extremities are nonedematous and both femoral and pedal pulses are normal. WOOL SORTER: Alert and oriented 3. No focal weakness. - Constitutional Vitals: Temp Pulse Resp BP Pulse Ox 98.1 F 61 12 124/55 97 06/12/19 14:30 06/12/19 14:30 06/12/19 14:30 06/12/19 14:30 06/12/19 14:30 General appearance: Present: no acute distress Results - Labs CBC & Chem 7: 06/12/19 05:44 06/12/19 05:44 Labs: Laboratory Last Values WBC 4.9 K/mm3 (4.5-11.0) 06/11/19 05:57 RBC 2.81 M/mm3 (3.65-5.03) L 06/11/19 05:57 Hgb 9.1 gm/dl (11.8-15.2) L 06/12/19 05:44 Hct 26.8 % (35.5-45.6) L 06/12/19 05:44 MCV 96 fl (84-94) H 06/11/19 05:57 MCH 33 pg (28-32) H 06/11/19 05:57 MCHC 34 % (32-34) 06/11/19 05:57 RDW 13.0 % (13.2-15.2) L 06/11/19 05:57 Plt Count 148 K/mm3 (140-440) 06/11/19 05:57 Lymph % (Auto) 27.7 % (13.4-35.0) 06/11/19 05:57 [place] % (Auto) 9.6 % (0.0-7.3) H 06/11/19 05:57 Eos % (Auto) 10.7 % (0.0-4.3) H 06/11/19 05:57 Baso % (Auto) 0.6 % (0.0-1.8) 06/11/19 05:57 Lymph # 1.3 K/mm3 (1.2-5.4) 06/11/19 05:57 [place] # 0.5 K/mm3 (0.0-0.8) 06/11/19 05:57 Eos # 0.5 K/mm3 (0.0-0.4) H 06/11/19 05:57 Baso # 0.0 K/mm3 (0.0-0.1) 06/11/19 05:57 Seg Neutrophils % 51.4 % (40.0-70.0) 06/11/19 05:57 Seg Neutrophils # 2.5 K/mm3 (1.8-7.7) 06/11/19 05:57 PT 14.3 Sec. (12.2-14.9) 06/09/19 14:50 INR 1.14 (0.87-1.13) H 06/09/19 14:50 APTT 31.0 Sec. (24.2-36.6) 06/09/19 14:50 Sodium 144 mmol/L (137-145) 06/12/19 05:44 Potassium 4.2 mmol/L (3.6-5.0) 06/12/19 05:44 Chloride 107.1 mmol/L (98-107) H 06/12/19 05:44 Carbon Dioxide 24 mmol/L (22-30) 06/12/19 05:44 Anion Gap 17 mmol/L 06/12/19 05:44 BUN 15 mg/dL (9-20) 06/12/19 05:44 Creatinine 1.5 mg/dL (0.8-1.5) 06/12/19 05:44 Estimated GFR 55 ml/min 06/12/19 05:44 BUN/Creatinine Ratio 10 % 06/12/19 05:44 Glucose 104 mg/dL (75-100) H 06/12/19 05:44 POC Glucose 97 (70-105) 06/12/19 12:08 Calcium 8.3 mg/dL (8.4-10.2) L 06/12/19 05:44 Magnesium 2.20 mg/dL (1.7-2.3) 06/11/19 16:45 Iron 70 ug/dL (49-181) 06/11/19 08:36 TIBC 210 mcg/dL (250-450) L 06/11/19 08:36 Ferritin 53.6 ng/mL (13.0-400.0) 06/11/19 08:36 Total Bilirubin 0.50 mg/dL (0.1-1.2) 06/09/19 14:50 AST 12 units/L (5-40) 06/09/19 14:50 ALT 10 units/L (7-56) 06/09/19 14:50 Alkaline Phosphatase 58 units/L (35-129) 06/09/19 14:50 Total Creatine Kinase 152 units/L (55-170) 06/09/19 15:40 Troponin T < 0.010 ng/mL (0.00-0.029) 06/09/19 14:50 Total Protein 6.4 g/dL (6.3-8.2) 06/09/19 14:50 Albumin 3.5 g/dL (3.9-5) L 06/09/19 14:50 Albumin/Globulin Ratio 1.2 % 06/09/19 14:50 Lipase 23 units/L (13-60) 06/09/19 14:50 Vitamin B12 330.7 pg/mL (211-911) 06/11/19 08:36 Folate 13.03 ng/mL (7.3-26.0) 06/11/19 08:36 Urine Color Straw (Yellow) 06/09/19 Unknown Urine Turbidity Clear (Clear) 06/09/19 Unknown Urine pH 5.0 (5.0-7.0) 06/09/19 Unknown Ur Specific [place] 1.010 (1.003-1.030) 06/09/19 Unknown Urine Protein <15 mg/dl mg/dL (Negative) 06/09/19 Unknown Urine Glucose (UA) Neg mg/dL (Negative) 06/09/19 Unknown Urine Ketones Neg mg/dL (Negative) 06/09/19 Unknown Urine Blood Mod (Negative) 06/09/19 Unknown Urine Nitrite Neg (Negative) 06/09/19 Unknown Urine Bilirubin Neg (Negative) 06/09/19 Unknown Urine Urobilinogen < 2.0 mg/dL (<2.0) 06/09/19 Unknown Ur Leukocyte Esterase Neg (Negative) 06/09/19 Unknown Urine WBC (Auto) < 1.0 /HPF (0.0-6.0) 06/09/19 Unknown Urine RBC (Auto) < 1.0 /HPF (0.0-6.0) 06/09/19 Unknown Urine Bacteria (Auto) 1+ /HPF (Negative) 06/09/19 Unknown Urine Mucus Few /HPF 06/09/19 Unknown Blood Type O POSITIVE 06/09/19 15:40 Antibody Screen Negative 06/09/19 15:40 Active Medications - Current Medications Current Medications: Generic Name Dose Route Start Last Admin Trade Name Freq PRN Reason Stop Dose Admin Acetaminophen 650 mg 06/09/19 20:23 Tylenol PO Q4H PRN Pain MILD(1-3)/Fever >100.5/TO Atorvastatin Calcium 40 mg 06/10/19 10:00 06/12/19 14:46 Lipitor PO Not Given DAILY [facility] Dextrose 0 ml 06/09/19 21:29 D50w (25gm) Syringe IV Q30MIN PRN Hypoglycemia Sodium Chloride 1,000 mls @ 50 mls/hr 06/12/19 15:00 Nacl 0.9% 1000 Ml IV DIRECT [facility] Insulin Human Lispro 0 unit 06/10/19 00:00 06/12/19 12:37 Humalog SUB-Q Not Given Q6HR [facility] Protocol Meclizine HCl 25 mg 06/09/19 20:26 Antivert PO TID PRN Vertigo Metoprolol Tartrate 25 mg 06/11/19 20:00 06/12/19 14:47 Metoprolol PO Not Given TID [facility] Miscellaneous Medication 1 drop 06/10/19 20:00 06/12/19 09:22 Brimonidine Tartrate [Alphagan P 0.1%] OP 1 drop TID [facility] Administration Morphine Sulfate 2 mg 06/09/19 20:23 Morphine IV Q4H PRN Pain, Moderate (4-6) Ondansetron HCl 4 mg 06/09/19 20:23 06/11/19 17:39 Zofran IV 4 mg Q6H PRN Administration Nausea And Vomiting Pantoprazole Sodium 40 mg 06/09/19 22:00 06/12/19 14:46 Protonix IV Not Given BID [facility] Ranolazine 500 mg 06/09/19 22:00 06/12/19 14:46 Ranexa Er PO Not Given BID [facility] Sodium Chloride 10 ml 06/09/19 22:00 06/12/19 09:23 Sodium Chloride Flush Syringe 10 Ml IV 10 ml BID ROSIO Administration Sodium Chloride 10 ml 06/09/19 20:23 Sodium Chloride Flush Syringe 10 Ml IV PRN PRN LINE FLUSH Nutrition/Malnutrition Assess - Dietary Evaluation Nutrition/Malnutrition Findings: Nutrition Notes Start: 06/10/19 12:00 Freq: Status: Active Protocol: Document 06/12/19 11:44 AP (Rec: 06/12/19 11:47 AP [id number]) Co-Sign 06/12/19 11:44 KH Nutrition Notes Need for Assessment generated from: core fitter Initial or Follow up Brief Note Current Diagnosis Diabetes,Hypertension Other Pertinent Diagnosis [place], [place] prostate, diverticulosis, hematochezia, GI bleed Current Diet NPO Labs/Tests Reviewed Pertinent Medications Reviewed Height 5 ft 2 in Weight 61.23 kg [place] Body Weight (kg) 53.63 BMI 24.7 Subjective/Other Information Pt still NPO. Spoke to pt and stated we would look into ONS for when diet is advanced. Burn Absent Trauma Absent #1 Nutrition Diagnosis Altered GI function Diagnosis Progress(for reassessment Continues documentation) Nutrition Intervention Follow-Up By: 06/13/19 Additional Comments F/U for diet advancement.
--- NOTE | 2019-06-12 15:38 | Post Operative Note ---
Date of procedure: 06/12/19 Pre-op diagnosis: Abnormal CT Post-op diagnosis: other (Colon Stenosis, incomplete procedure, severe tics) Findings: 1. Severe sigmoid stricture; colon scope would not pass, but upper endoscope would - EGD advance to hepatic flexure but would extend no further - Cold bx taken 2. Abnormal mucosa in distal sigmoid near rectosigmoid junction; cold bx; appeared adenomatous - 3ml tattoo with ink on distal (rectosigmoid) side 3. Severe diverticular disease throughout but particularly prominant in the sigmoid 4. No active bleeding 5. Grade I Int Hemorrhoids Procedure: Colonoscopy (incomplete 2nd anatomy) with cold bx and [place] ink injection for tattoo Anesthesia: MAC Surgeon: TEO MCLEOD Estimated blood loss: minimal Pathology: list (1. Proximal sigmoid stricture. 2. Distal adenomatous tissue) Specimen disposition: to lab Condition: stable Disposition: floor (Recs: 1. Would recommend sigmoid colectomy as stricture will likely worsen over time; will make final recommendation after path returns. 2. OK to resume regular diet.)
--- NOTE | 2019-06-12 16:47 | Post Anesthesia Evaluation ---
- Post Anesthesia Evaluation Patient Participated: Yes Airway Patent: Yes Stable Respiratory Function: Yes Nausea/Vomiting: No Temp > 96.8F: Yes Pain Manageable: Yes Adequeate Hydration: Yes Anesthesia Complications: No
--- NOTE | 2019-06-12 17:41 | Operative Report ---
PROCEDURE PERFORMED: Incomplete colonoscopy with cold biopsy and Louise ink injection for tattooing. PREOPERATIVE DIAGNOSIS: Abnormal CT with colon stricture versus mass. POSTOPERATIVE DIAGNOSES: Colonic stenosis impeding the passage of the endoscope, severe diverticulosis, abnormal mucosa, and hemorrhoids. ENDOSCOPIST: Rai Cardoso MD INSTRUMENT: Olympus video endoscope. MEDICATIONS: MAC anesthesia by [facility]. COMPLICATIONS: No apparent complications, but the endoscopy was incomplete due to colon stenosis in the sigmoid. ESTIMATED BLOOD LOSS: Minimal. SPECIMENS: 1. Proximal sigmoid colon stricture. 2. Distal sigmoid colon abnormal mucosa, possible adenomatous tissue. IMPLANTS: None. ASSISTANTS: None. CONDITION AT COMPLETION: Stable. TECHNIQUE: The patient was informed of the risks and benefits of the procedure. He signed the informed consent to proceed. He was placed in a left lateral decubitus position. The above sedative medications were given. His vital signs remained stable throughout the procedure. The pediatric colonoscope was then advanced from the anus to the proximal sigmoid colon. At that point, a severe stricture was encountered and the colonoscope would not pass. We exchanged for an upper endoscope and, with counterpressure, the upper endoscope passed with difficulty. It was advanced all the way to the hepatic flexure and the ascending colon was visualized, but we could cannulate no further due to his anatomy. The bowel was then insufflated and the endoscope was slowly withdrawn. FINDINGS: 1. Severe sigmoid stricture in the proximal colon; colonoscope would not pass, but the upper endoscope would pass using counterpressure. A. The sigmoid stricture precluded advancing the scope beyond the hepatic flexure. B. Cold biopsies were taken, but the mucosa appeared to be of a chronic stricture, likely diverticular in nature. 2. Abnormal mucosa in the distal sigmoid colon near the rectosigmoid junction; cold biopsy was taken. A. The tissue appeared adenomatous, but not cancer. B. A 3 mL of Louise ink tattoo was placed on the distal/rectum side of the sigmoid adenomatous tissue. 3. Severe diverticular disease noted throughout the colon, but particularly prominent throughout in the sigmoid colon. 4. No evidence of active gastrointestinal bleeding. 5. Grade 1 internal hemorrhoids. RECOMMENDATIONS: 1. I would recommend a sigmoid colectomy as the stricture will likely worsen over time, but we will await pathology results before final recommendation. 2. Okay to resume regular diet. JOB# [id number] E/NTS
[2019-06-13] MEDS: HumaLOG SUB-Q SCH ×4 (00:08→18:45)
[2019-06-13 05:43] LABS: Hematocrit 25.8 % (35.5-45.6); Hemoglobin 8.6 gm/dl (11.8-15.2)
[2019-06-13] MEDS: METOPROLOL PO SCH ×3 (08:30→22:05)
[2019-06-13] MEDS: NON-FORMULARY (Brimonidine Tartrate [Alphagan P 0.1%] 1 DROP) OP SCH ×2 (08:30→14:50)
[2019-06-13] MEDS: SODIUM CHLORIDE FLUSH SYRINGE 10 ML IV SCH ×2 (09:27→22:07)
[2019-06-13] MEDS: RANEXA ER PO SCH ×2 (09:27→22:07)
[2019-06-13] MEDS: PROTONIX IV SCH (09:27)
--- NOTE | 2019-06-13 11:47 | Gastroenterology Progress Note ---
Assessment and Plan - Patient Problems (1) GI bleed Current Visit: Yes Status: Acute Plan to address problem: - Suspect recurrent diverticular bleed, and resolved by colonoscopy yesterday. - OK to d/c patient home per our service. - Avoid NSAIDs x 4-6 weeks. - Will sign off; please call with questions. (2) Abnormal CT scan, sigmoid colon Current Visit: Yes Status: Acute Plan to address problem: - Severe diverticular disease with stenosis, worse since 2017. Biopsies taken, but did not appear grossly malignant. - Will have patient f/u in clinic. I recommend elective surgical excision after Path returns, as this problem appears to be worsening. Subjective Date of service: 06/13/19 Principal diagnosis: Abnormal CT of Colon Interval history: The patient is eating without pain or bleeding. Denies N/V/abdominal pain. Objective - Constitutional Vitals: Temp Pulse Resp BP Pulse Ox 98.5 F 63 18 120/58 97 06/13/19 07:39 06/13/19 08:30 06/13/19 08:23 06/13/19 08:30 06/13/19 08:23 General appearance: no acute distress - Respiratory Respiratory effort: normal Respiratory: bilateral: CTA - Cardiovascular Rhythm: regular Heart Sounds: Present: S1 & S2 - Gastrointestinal General gastrointestinal: Present: soft, non-tender, non-distended - Labs CBC & Chem 7: 06/13/19 04:38 06/12/19 05:44 Labs: Laboratory Results - last 24 hr 06/12/19 06/12/19 06/12/19 12:08 15:59 17:12 Hgb Hct POC Glucose 97 102 88 06/12/19 06/13/19 06/13/19 23:39 04:38 05:56 Hgb 8.6 L Hct 25.8 L POC Glucose 80 122 H 06/13/19 11:29 Hgb Hct POC Glucose 98
--- NOTE | 2019-06-13 12:04 | Progress Note ---
Assessment and Plan S/p colonoscopy yesterday, GI recs noted - would recommend sigmoid colectomy as stricture will likely worsen over time; will make final recommendation after path returns, OK to resume regular diet. General surgery has been consulted. Currently stable cardiac status. Cont home cardiac regimen and recommend resumption of ASA and Effient when ok per GI team and/or general surgery. Nothing further to add from cardiac perspective at this time. Will sign off. Recommend follow up in our office with Dr. Yan within 1-2 weeks of hospital discharge ([phone]). The patient has been seen in conjunction with Dr. Francisco Mcintyre who agrees with the assessment and plan of care. - Patient Problems (1) GI bleed Current Visit: Yes Status: Acute Qualifiers: GI bleed type/associated pathology: unspecified gastrointestinal hemorrhage type Qualified Code(s): K92.2 - Gastrointestinal hemorrhage, unspecified (2) Anemia Current Visit: Yes Status: Acute (3) Mass of colon Current Visit: Yes Status: Acute (4) CAD (coronary artery disease) Current Visit: Yes Status: Chronic Qualifiers: Coronary Disease-Associated Artery/Lesion type: [place] artery [place] vs. transplanted heart: [place] heart (5) Stented coronary artery Current Visit: Yes Status: Chronic (6) SVT (supraventricular tachycardia) Current Visit: Yes Status: Acute (7) NSVT (nonsustained ventricular tachycardia) Current Visit: Yes Status: Acute (8) Syncope Current Visit: Yes Status: Acute Qualifiers: Syncope type: unspecified Qualified Code(s): R55 - Syncope and collapse (9) HTN (hypertension) Current Visit: Yes Status: Chronic Qualifiers: Hypertension type: essential hypertension Qualified Code(s): I10 - Essential (primary) hypertension (10) Hx of pulmonary embolus Current Visit: Yes Status: Chronic (11) Hyperlipidemia Current Visit: Yes Status: Chronic (12) Ischemic cardiomyopathy Current Visit: Yes Status: Chronic Subjective Date of service: 06/13/19 Principal diagnosis: Abnormal CT of Colon Interval history: pt resting in bed, no current complaints, s/p endoscopy today. tele reviewed - in SR with one brief bout of SVT yesterday around noon, pt asymptomatic. Objective Last Vital Signs Temp 98.5 F 06/13/19 07:39 Pulse 63 06/13/19 08:30 Resp 18 06/13/19 08:23 BP 120/58 06/13/19 08:30 Pulse Ox 97 06/13/19 08:23 - Physical Examination General: No Apparent Distress HEENT: Positive: PERRL, Normocephaly, Mucus Membranes Moist Neck: Positive: neck supple, trachea midline Cardiac: Positive: Reg Rate and Rhythm, S1/S2 Lungs: Positive: Decreased Breath Sounds Neuro: Positive: Grossly Intact Abdomen: Negative: Tender Skin: Negative: Rash Musculoskeletal: No Pain Extremities: Absent: edema - Labs and Meds CBC 06/13/19 Range/Units 04:38 Hgb 8.6 L (11.8-15.2) gm/dl Hct 25.8 L (35.5-45.6) % - Imaging and Cardiology EKG: report reviewed, image reviewed Echo: report reviewed (03/2019: EF 35-40%, mild MR, mild TR, impaired relaxation) Cardiac cath: report reviewed (11/16/2017: patent stents, mild to mod disease elsewhere. most recent PCI of mid-LAD on 11/13/2017 at [facility] per Dr. Segundo Mcintyre) - EKG Sinus rhythms and dysrhythmias: sinus rhythm
--- NOTE | 2019-06-13 15:48 | Consultation ---
History of Present Illness Consult date: 06/13/19 Reason for consult: other (rectal bleeding) Chief complaint: rectal bleeding - History of present illness History of present illness: 78 yo M with hx of CAD with stents, diverticulosis presents with rectal bleeding. This was associated with syncopal episode, crampy lower abdominal pain. This started one day prior to presentation. + Dark red colored stool. Patient has a hx of LGIB with w/u in 2013 by [facility]. At that time the bleeding was felt to be due to diverticulosis. The patient denies abdominal pain today. Tolerated cardiac diet. He states he has not had any further bleeding per rectum. No cp, sob, n/v. Last cscope in 2016. Past History Past Medical History: anemia, CAD, diabetes, hypertension, hyperlipidemia, other (GIB, asthma, diverticulosis) Past Surgical History: Other ( PCI 4 (most recent 11/13/17), lithotripsy, hernia repair) Social history: . denies: smoking, alcohol abuse Family history: no significant family history Medications and Allergies Allergies Allergy/AdvReac Type Severity Reaction Status Date / Time No Known Allergies Allergy Unverified 02/18/16 09:53 Home Medications Medication Instructions Recorded Confirmed Last Taken Type AtorvaSTATin [Lipitor] 40 mg PO DAILY 02/18/16 06/09/19 06/08/19 History Ranolazine ER [Ranexa ER] 1 tab PO BID 04/07/19 06/09/19 06/08/19 History Aspirin EC [Halfprin EC] 81 mg PO DAILY 05/30/19 06/09/19 06/08/19 History Brimonidine Tartrate [Alphagan P 1 drop OU TID 05/30/19 06/09/19 06/08/19 Hist ory 0.1%] Lisinopril [Zestril TAB] 5 mg PO QDAY #30 tablet 06/02/19 06/09/19 06/08/19 Rx Meclizine [Antivert] 25 mg PO TID PRN 06/09/19 06/09/19 06/08/19 History Active Meds: Active Medications Acetaminophen (Tylenol) 650 mg PO Q4H PRN PRN Reason: Pain MILD(1-3)/Fever >100.5/TO Atorvastatin Calcium (Lipitor) 40 mg PO DAILY ROSIO Last Admin: 06/13/19 09:27 Dose: 40 mg Documented by: Dextrose (D50w (25gm) Syringe) 0 ml IV Q30MIN PRN PRN Reason: Hypoglycemia Sodium Chloride (Nacl 0.9% 1000 Ml) 1,000 mls @ 50 mls/hr IV DIRECT [facility] Insulin Human Lispro (Humalog) 0 unit SUB-Q Q6HR [facility]; Protocol Last Admin: 06/13/19 11:41 Dose: Not Given Documented by: Meclizine HCl (Antivert) 25 mg PO TID PRN PRN Reason: Vertigo Metoprolol Tartrate (Metoprolol) 25 mg PO TID [facility] Last Admin: 06/13/19 14:50 Dose: 25 mg Documented by: Miscellaneous Medication (Brimonidine Tartrate [Alphagan P 0.1%]) 1 drop OP TID [facility] Last Admin: 06/13/19 14:50 Dose: 1 drop Documented by: Morphine Sulfate (Morphine) 2 mg IV Q4H PRN PRN Reason: Pain, Moderate (4-6) Ondansetron HCl (Zofran) 4 mg IV Q6H PRN PRN Reason: Nausea And Vomiting Last Admin: 06/11/19 17:39 Dose: 4 mg Documented by: Pantoprazole Sodium (Protonix) 40 mg PO BID [facility] Ranolazine (Ranexa Er) 500 mg PO BID [facility] Last Admin: 06/13/19 09:27 Dose: 500 mg Documented by: Sodium Chloride (Sodium Chloride Flush Syringe 10 Ml) 10 ml IV BID [facility] Last Admin: 06/13/19 09:27 Dose: 10 ml Documented by: Sodium Chloride (Sodium Chloride Flush Syringe 10 Ml) 10 ml IV PRN PRN PRN Reason: LINE FLUSH Review of Systems All systems: negative (10 pt ROS performed and negative except for that listed in HPI) Exam Vital Signs Temp Pulse Resp BP Pulse Ox 98.2 F 79 18 107/63 100 06/09/19 14:17 06/09/19 14:17 06/09/19 14:17 06/09/19 14:17 06/09/19 14:17 Narrative exam: Gen: AAOx3. nAD ENT: no scleral icterus or conjunctival pallor CV: s1, S2+ Resp; even and unlabored Abd: soft, NT, ND Ext: no c/c/e Results - Labs 06/13/19 04:38 06/12/19 05:44 Abnormal lab results 06/13/19 06/13/19 Range/Units 04:38 05:56 Hgb 8.6 L (11.8-15.2) gm/dl Hct 25.8 L (35.5-45.6) % POC Glucose 122 H (70-105) - Imaging CT scan - abdomen: report reviewed, image reviewed CT scan - chest: report reviewed, image reviewed CT scan - pelvis: report reviewed, image reviewed Assessment and Plan 78 yo M with 1. sigmoid stricture, likely related to diverticular disease vs malignant process Plan: 1. Cardiac diet 2. follow up path 3. agree with GI recommendations 4. Hb stable, no further active signs of LGIB 5. Discussed elective simoidectomy with patient for stricture. Explained that narrowing will likely worsen and could lead to obstruction. He and his sister understand. Recommend outpatient follow up in surgery clinic to discuss further. Ok to dc from surgery standpoint.
--- NOTE | 2019-06-13 16:29 | Progress Note ---
Assessment and Plan Assessment and plan: 78-year-old -[place] male with history of CHF with EF 35-45%, CAD status post PCI 4 (most recent 11/13/17), NM 2, HTN, HLD, DM, GI bleed, diverticulitis, asthma, and questionable history of PE who presents to [facility] ED with complaints large amount of dark bloody stool 3 and near-syncopal event. 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 Atherosclerotic disease of the aorta and its branches without active bleeding site or high-grade focal stenosis. Renal scarring left greater than right and benign appearing renal cysts. -Hx GI Bleed and diverticulitis -Total of 5 episodes of large dark red stool -Heme positive -On Protonix twice a day -GI consult and will do colonoscopy and couldn't advance the colonoscopy -General surgery consulted for colectomy and recommend o/p elective surgery -Oncology consulted SVT - cardiology consulted and recommend no further work up - Controlled Anemia due to acute blood loss -Hemoglobin on admission 10.7 (down from 13.9 on 05/31/19), 9.1 -Active lower GI bleed -Continue to monitor hemoglobin and hematocrit -Transfuse as needed DM2 -POC BG monitoring -SSI coverage prn HTN -Monitor BP -Resume home antihypertensive meds Near-syncopal episode -Pt Denies loss of consciousness -Per family pt "almost passed out" while sitting in car - carotid duplex on 06/02/19 was negative: No hemodynamically significant stenosis by NASCET criteria. DVT PPX -SCD's -Systemic anticoagulation due to active GI bleed Advance Directives: No VTE prophylaxis?: Mechanical Plan of care discussed with patient/family: Yes History Interval history: Patient was seen and evaluated this morning, she is alert and oriented. No rectal bleeding since this morning. Hospitalist Physical - Physical exam Narrative exam: Not in cardiopulmonary distress. The patient appeared well nourished and normally developed. Vital signs as documented. Head exam is unremarkable. No scleral icterus . Neck is without jugular venous distension, thyromegaly, or carotid bruits. Lungs are clear to auscultation. Cardiac exam reveals regular rate and Rhythm. First and second heart sounds normal. No murmurs, rubs or gallops. Abdominal exam reveals normal bowel sounds, no masses, no organomegaly and no aortic enlargement. Extremities are nonedematous and both femoral and pedal pulses are normal. FINANCE SPECIALIST: Alert and oriented 3. No focal weakness. - Constitutional Vitals: Temp Pulse Resp BP Pulse Ox 97.9 F 66 20 125/65 96 06/13/19 13:05 06/13/19 14:50 06/13/19 13:05 06/13/19 14:50 06/13/19 13:05 General appearance: Present: no acute distress Results - Labs CBC & Chem 7: 06/13/19 04:38 06/12/19 05:44 Labs: Laboratory Last Values WBC 4.9 K/mm3 (4.5-11.0) 06/11/19 05:57 RBC 2.81 M/mm3 (3.65-5.03) L 06/11/19 05:57 Hgb 8.6 gm/dl (11.8-15.2) L 06/13/19 04:38 Hct 25.8 % (35.5-45.6) L 06/13/19 04:38 MCV 96 fl (84-94) H 06/11/19 05:57 MCH 33 pg (28-32) H 06/11/19 05:57 MCHC 34 % (32-34) 06/11/19 05:57 RDW 13.0 % (13.2-15.2) L 06/11/19 05:57 Plt Count 148 K/mm3 (140-440) 06/11/19 05:57 Lymph % (Auto) 27.7 % (13.4-35.0) 06/11/19 05:57 Bonner % (Auto) 9.6 % (0.0-7.3) H 06/11/19 05:57 Eos % (Auto) 10.7 % (0.0-4.3) H 06/11/19 05:57 Baso % (Auto) 0.6 % (0.0-1.8) 06/11/19 05:57 Lymph # 1.3 K/mm3 (1.2-5.4) 06/11/19 05:57 Bonner # 0.5 K/mm3 (0.0-0.8) 06/11/19 05:57 Eos # 0.5 K/mm3 (0.0-0.4) H 06/11/19 05:57 Baso # 0.0 K/mm3 (0.0-0.1) 06/11/19 05:57 Seg Neutrophils % 51.4 % (40.0-70.0) 06/11/19 05:57 Seg Neutrophils # 2.5 K/mm3 (1.8-7.7) 06/11/19 05:57 PT 14.3 Sec. (12.2-14.9) 06/09/19 14:50 INR 1.14 (0.87-1.13) H 06/09/19 14:50 APTT 31.0 Sec. (24.2-36.6) 06/09/19 14:50 Sodium 144 mmol/L (137-145) 06/12/19 05:44 Potassium 4.2 mmol/L (3.6-5.0) 06/12/19 05:44 Chloride 107.1 mmol/L (98-107) H 06/12/19 05:44 Carbon Dioxide 24 mmol/L (22-30) 06/12/19 05:44 Anion Gap 17 mmol/L 06/12/19 05:44 BUN 15 mg/dL (9-20) 06/12/19 05:44 Creatinine 1.5 mg/dL (0.8-1.5) 06/12/19 05:44 Estimated GFR 55 ml/min 06/12/19 05:44 BUN/Creatinine Ratio 10 % 06/12/19 05:44 Glucose 104 mg/dL (75-100) H 06/12/19 05:44 POC Glucose 98 (70-105) 06/13/19 11:29 Calcium 8.3 mg/dL (8.4-10.2) L 06/12/19 05:44 Magnesium 2.20 mg/dL (1.7-2.3) 06/11/19 16:45 Iron 70 ug/dL (49-181) 06/11/19 08:36 TIBC 210 mcg/dL (250-450) L 06/11/19 08:36 Ferritin 53.6 ng/mL (13.0-400.0) 06/11/19 08:36 Total Bilirubin 0.50 mg/dL (0.1-1.2) 06/09/19 14:50 AST 12 units/L (5-40) 06/09/19 14:50 ALT 10 units/L (7-56) 06/09/19 14:50 Alkaline Phosphatase 58 units/L (35-129) 06/09/19 14:50 Total Creatine Kinase 152 units/L (55-170) 06/09/19 15:40 Troponin T < 0.010 ng/mL (0.00-0.029) 06/09/19 14:50 Total Protein 6.4 g/dL (6.3-8.2) 06/09/19 14:50 Albumin 3.5 g/dL (3.9-5) L 06/09/19 14:50 Albumin/Globulin Ratio 1.2 % 06/09/19 14:50 Lipase 23 units/L (13-60) 06/09/19 14:50 Vitamin B12 330.7 pg/mL (211-911) 06/11/19 08:36 Folate 13.03 ng/mL (7.3-26.0) 06/11/19 08:36 Urine Color Straw (Yellow) 06/09/19 Unknown Urine Turbidity Clear (Clear) 06/09/19 Unknown Urine pH 5.0 (5.0-7.0) 06/09/19 Unknown Ur Specific Connell 1.010 (1.003-1.030) 06/09/19 Unknown Urine Protein <15 mg/dl mg/dL (Negative) 06/09/19 Unknown Urine Glucose (UA) Neg mg/dL (Negative) 06/09/19 Unknown Urine Ketones Neg mg/dL (Negative) 06/09/19 Unknown Urine Blood Mod (Negative) 06/09/19 Unknown Urine Nitrite Neg (Negative) 06/09/19 Unknown Urine Bilirubin Neg (Negative) 06/09/19 Unknown Urine Urobilinogen < 2.0 mg/dL (<2.0) 06/09/19 Unknown Ur Leukocyte Esterase Neg (Negative) 06/09/19 Unknown Urine WBC (Auto) < 1.0 /HPF (0.0-6.0) 06/09/19 Unknown Urine RBC (Auto) < 1.0 /HPF (0.0-6.0) 06/09/19 Unknown Urine Bacteria (Auto) 1+ /HPF (Negative) 06/09/19 Unknown Urine Mucus Few /HPF 10/21/19 Unknown Blood Type O POSITIVE 06/09/19 15:40 Antibody Screen Negative 06/09/19 15:40 Active Medications - Current Medications Current Medications: Generic Name Dose Route Start Last Admin Trade Name Freq PRN Reason Stop Dose Admin Acetaminophen 650 mg 06/09/19 20:23 Tylenol PO Q4H PRN Pain MILD(1-3)/Fever >100.5/TO Atorvastatin Calcium 40 mg 06/10/19 10:00 06/13/19 09:27 Lipitor PO 40 mg DAILY ROSIO Administration Dextrose 0 ml 06/09/19 21:29 D50w (25gm) Syringe IV Q30MIN PRN Hypoglycemia Sodium Chloride 1,000 mls @ 50 mls/hr 06/12/19 15:00 Nacl 0.9% 1000 Ml IV DIRECT [facility] Insulin Human Lispro 0 unit 06/10/19 00:00 06/13/19 11:41 Humalog SUB-Q Not Given Q6HR [facility] Protocol Meclizine HCl 25 mg 06/09/19 20:26 Antivert PO TID PRN Vertigo Metoprolol Tartrate 25 mg 06/11/19 20:00 06/13/19 14:50 Metoprolol PO 25 mg TID ROSIO Administration Miscellaneous Medication 1 drop 06/10/19 20:00 06/13/19 14:50 Brimonidine Tartrate [Alphagan P 0.1%] OP 1 drop TID ROSIO Administration Morphine Sulfate 2 mg 06/09/19 20:23 Morphine IV Q4H PRN Pain, Moderate (4-6) Ondansetron HCl 4 mg 06/09/19 20:23 06/11/19 17:39 Zofran IV 4 mg Q6H PRN Administration Nausea And Vomiting Pantoprazole Sodium 40 mg 06/13/19 22:00 Protonix PO BID ROSIO Ranolazine 500 mg 06/09/19 22:00 06/13/19 09:27 Ranexa Er PO 500 mg BID ROSIO Administration Sodium Chloride 10 ml 06/09/19 22:00 06/13/19 09:27 Sodium Chloride Flush Syringe 10 Ml IV 10 ml BID ROSIO Administration Sodium Chloride 10 ml 06/09/19 20:23 Sodium Chloride Flush Syringe 10 Ml IV PRN PRN LINE FLUSH Nutrition/Malnutrition Assess - Dietary Evaluation Nutrition/Malnutrition Findings: Nutrition Notes Start: 06/10/19 12:0 0 Freq: Status: Active Protocol: Document 06/13/19 09:32 AP (Rec: 06/13/19 09:56 AP [id number]) Co-Sign 06/13/19 09:32 LP Nutrition Notes Need for Assessment generated from: sports medicine trainer Initial or Follow up Reassessment Current Diagnosis Diabetes,Hypertension Other Pertinent Diagnosis NM, CA prostate, diverticulosis, hematochezia, GI bleed Current Diet Regular Labs/Tests Reviewed Pertinent Medications Reviewed Height 5 ft 2 in Weight 61.23 kg [place] Body Weight (kg) 53.63 BMI 24.7 Subjective/Other Information Pt diet advanced to regular. Noted 50% of bfast tray consumed, pt stated he ate more than 50% of last night's dinner. Pt agreed to ONS until meal % consumption increases. Percent of energy/protein needs met: 74%/62% Burn Absent Trauma Absent Minimum of two criteria No physical signs of malnutrition #1 Nutrition Diagnosis Altered GI function As Evidenced by Signs and Symptoms Pt consuming 74%/62% kcal/PRO needs. Diagnosis Progress(for reassessment Improved documentation) Is patient on ventilator? No Is Patient Ambulatory and/or Out of Bed Yes REE-([facility]-ambulatory/OOB) [ 1581.515 [id number]] Calculation Used for Recommendations [facility] Additional Notes PRO needs: 61-73g/day (1-1.2g. kg) Fluid: 1ml/kcal or per MD Nutrition Intervention Change Diet Order: Consistent CHO/Cardiac Add Supplement/Snack (indicate name/kcal Ensure High Protein Once a day /protein ) Provides kCal: 160 Provides Protein (gm) 16 Goal #1 Pt consume >80% kcal/PRO needs via PO/ONS. Anticipated Discharge Needs: Consistent CHO/Cardiac Follow-Up By: 06/17/19 Additional Comments F/U for PO/ONS intakes.
[2019-06-13] MEDS: PROTONIX PO SCH (22:05)
[2019-06-14] MEDS: HumaLOG SUB-Q SCH ×3 (00:53→13:01)
[2019-06-14 08:36] VITALS: BP 145/54
[2019-06-14] MEDS: METOPROLOL PO SCH (08:51)
[2019-06-14] MEDS: RANEXA ER PO SCH (09:17)
[2019-06-14] MEDS: PROTONIX PO SCH (09:17)
[2019-06-14] MEDS: SODIUM CHLORIDE FLUSH SYRINGE 10 ML IV SCH (09:18)
[2019-06-14] MEDS: NON-FORMULARY (Brimonidine Tartrate [Alphagan P 0.1%] 1 DROP) OP SCH (09:19)
--- NOTE | 2019-06-14 09:49 | Discharge Summary ---
Providers - Providers Date of Admission: 06/09/19 20:23 Date of discharge: 06/14/19 Attending physician: YSABEL HAMMOND MD 06/09/19 15:29 Consult to Physician [CONS] Urgent Comment: called answ. serv./ melisa Consulting Provider: TEO MCLEOD Physician Instructions: Reason For Exam: gi bleed 06/09/19 20:37 Consult to Physician [CONS] Routine Comment: called answ. serv. /melisa Consulting Provider: GRABIEL VILLARREAL Physician Instructions: Reason For Exam: ?? 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 06/10/19 09:34 Physical Therapy Evaluation and Treat [CONS] Routine Comment: Reason For Exam: Weakness 06/11/19 14:53 Consult to Physician [CONS] Routine Comment: Consulting Provider: JULIO BARBA Physician Instructions: Reason For Exam: SVT 170 06/13/19 08:02 Consult to Physician [CONS] Routine Comment: called office/ melisa Consulting Provider: TORSTEN MCMILLAN Physician Instructions: Reason For Exam: rectosigmoid mass suspected CA Primary care physician: CHERELLE SMITH Hospitalization Reason for admission: GI bleed, sigmoid coloc stricture Condition: Stable Pertinent studies: EGD, colonoscopy Hospital course: 78-year-old -[place] male with history of CHF with EF 35-45%, CAD status post PCI 4 (most recent 11/13/17), PA 2, HTN, HLD, DM, GI bleed, diverticulitis, asthma, and questionable history of PE who presents to [facility] with complaints large amount of dark bloody stool 3 and near-syncopal event. 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 Atherosclerotic disease of the aorta and its branches without active bleeding site or high-grade focal stenosis. Renal scarring left greater than right and benign appearing renal cysts. GI did colonoscopy and was not able to pass the colonoscopy, they did also EGD. GI said it doesn't look like the patient has malignancy and likely the stricture is due to diverticular disease, diverticulitis. Patient will follow with surgery for elective colectomy. Patient has tachycardia and cardiology said no further w/u. Anemia due to acute blood loss; Patient doesn't need transfusion. Patient didn't have active bleeding. DM2; continue o/p home medications. HTN; controlled Near-syncopal episode; likely due to acute blood loss. Patient was hemodynamically stable at the time of discharge. Disposition: DC-01 TO HOME OR SELFCARE Time spent for discharge: 32 minutes - Discharge Diagnoses (1) Abnormal CT scan, sigmoid colon Status: Acute (2) Anemia Status: Acute Qualifiers: Anemia type: iron deficiency Iron deficiency anemia type: chronic blood loss Qualified Code(s): D50.0 - Iron deficiency anemia secondary to blood loss (chronic) (3) GI bleed Status: Acute Qualifiers: GI bleed type/associated pathology: unspecified gastrointestinal hemorrhage type Qualified Code(s): K92.2 - Gastrointestinal hemorrhage, unspecified (4) CAD (coronary artery disease) Status: Chronic Qualifiers: Coronary Disease-Associated Artery/Lesion type: [place] artery [place] vs. t ransplanted heart: [place] heart (5) HTN (hypertension) Status: Chronic Qualifiers: Hypertension type: essential hypertension Qualified Code(s): I10 - Essential (primary) hypertension (6) Hx of pulmonary embolus Status: Chronic Core Measure Documentation - Palliative Care Palliative Care/ Comfort Measures: Not Applicable - Core Measures Any of the following diagnoses?: none Exam - Physical Exam Narrative exam: Not in cardiopulmonary distress. The patient appeared well nourished and normally developed. Vital signs as documented. Head exam is unremarkable. No scleral icterus . Neck is without jugular venous distension, thyromegaly, or carotid bruits. Lungs are clear to auscultation. Cardiac exam reveals regular rate and Rhythm. First and second heart sounds normal. No murmurs, rubs or gallops. Abdominal exam reveals normal bowel sounds, no masses, no organomegaly and no aortic enlargement. Extremities are nonedematous and both femoral and pedal pulses are normal. SOIL ANALYST: Alert and oriented 3. No focal weakness. - Constitutional Vitals: Temp Pulse Resp BP Pulse Ox 98.3 F 60 18 145/54 97 06/14/19 08:06 06/14/19 08:06 06/14/19 08:06 06/14/19 08:06 06/14/19 08:06 Plan Activity: no restrictions Weight Bearing Status: Full Weight Bearing Diet: regular Follow up with: PRIMARY CAREMD [Referring] - 3-5 Days TORSTEN MCMILLAN DO [Staff Physician] - 10 Days TEO MCLEOD MD [Staff Physician] - 14 Days DARELL NICOLAS MD [Staff Physician] - 7 Days Forms: Accompanied Note
[2019-06-14 09:55] LABS: Hematocrit 26.9 % (35.5-45.6)
== END 2019-06-14 13:56 | disposition home health service (06) | DRG 378 ==
LOC: ED 13:48 → EDBD 13:48 → 2B-ACE 20:23
PROVIDERS: ADMIT Internal Medicine; ATTEND Internal Medicine
PROC: 0DBN8ZX Excision of Sigmoid Colon, Via Natural or Artificial Opening Endoscopic, Diagnostic (ICD-10-PCS; principal; 2019-06-12)
PROC: 0DJ08ZZ Inspection of Upper Intestinal Tract, Via Natural or Artificial Opening Endoscopic (ICD-10-PCS; 2019-06-12)
DX: K57.33 Diverticulitis of large intestine without perforation or abscess with bleeding (principal); D62 Acute posthemorrhagic anemia; I47.1 Supraventricular tachycardia; J45.909 Unspecified asthma, uncomplicated; I25.10 Atherosclerotic heart disease of native coronary artery without angina pectoris; E11.9 Type 2 diabetes mellitus without complications; I11.0 Hypertensive heart disease with heart failure; I50.9 Heart failure, unspecified; M19.90 Unspecified osteoarthritis, unspecified site; E78.5 Hyperlipidemia, unspecified; I25.5 Ischemic cardiomyopathy; Z87.891 Personal history of nicotine dependence; I25.2 Old myocardial infarction; Z98.61 Coronary angioplasty status; Z86.711 Personal history of pulmonary embolism; Z79.899 Other long term (current) drug therapy; Z79.82 Long term (current) use of aspirin
CPT/HCPCS: 36415; 71045; 71260; 74174; 80048; 80053; 81001; 82378; 82550; 82607; 82728; 82747; 82962; 83550; 83690; 83735; 84484; 85014; 85018; 85025; 85610; 85730; 86850; 86900; 86901; 88305; 93005; 93010; 96365; G0378; A9270-GY; C9113; J1815; J2405; J2704; J7030; J7050; Q9967